=== PATIENT | male | born 1975 | race African-American/Black ===

== ENCOUNTER 2018-02-14 08:29 | Inpatient (IN) | payer BC ==
--- NOTE | 2018-02-14 10:02 | PROC ---
Endoscopy Procedure Endoscopy procedure completed. Please see scanned procedure report. 1) Circumferential, nearly obstructing, bleeding lesion @ 50 cm, biopsies and tattooed at both ends (~ 3-4 cm). Will admit for work up and treatment. Sx and Onc consults placed. 2) 1 cm pedunculated polyp was lifted with NS and hot snared off ICV, retried and sent to pathology
--- NOTE | 2018-02-14 10:02 | CONSULT ---
Consult Consult Specialty:: General surgery Referred by:: Josefina Reason for Consultation:: Apple core colon lesion onendoscopy - History Source History Provided By: Patient, Medical Record Limitations to Obtaining History: No Limitations - Past Medical History Additional Medical History: Denies - Alcohol/Substance Use Hx Alcohol Use: No History of Substance Use: reports: None - Smoking History Smoking history: Former smoker Have you smoked in the past 12 months: No Aproximately how many cigarettes per day: 0 If you are a former smoker, when did you quit?: 2000 - Social History Usual Living Arrangement: Alone ADL: Independent 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 History of Recent Travel: No Home Medications - Allergies Allergies/Adverse Reactions: Allergies Allergy/AdvReac Type Severity Reaction Status Date / Time No Known Allergies Allergy Verified 01/24/18 23:17 - Home Medications Home Medications: Ambulatory Orders NK [No Known Home Medication] 02/13/18 Family Disease History - Family Disease History Family Disease History: Other: Father (Alive: healthy), Mother (: 70's: PNA / Pancreatitis / Cardiac arrest), Son (1, healthy), Daughter (3, healthy) Physical Exam Vital Signs: Vital Signs Temperature 98.4 F 02/14/18 08:52 Pulse Rate 82 02/14/18 08:52 Respiratory Rate 18 02/14/18 08:52 Blood Pressure 154/89 02/14/18 08:52 O2 Sat by Pulse Oximetry (%) 99 02/14/18 08:52
--- NOTE | 2018-02-14 14:03 | HP ---
CHIEF COMPLAINT: Apple core colon lesion PCP: Giorgi Hoover HISTORY OF PRESENT ILLNESS: Patient is a 42 year old male with a PMHx of HTN (diet control), recently admitted for intra-abdominal abscess 01/19-01/23 and discharged with 10 days of abx who presented today for outpatient colonoscopy procedure with Dr. Rocha for follow up after being diagnosed with intraabdominal abscess with diverticulitis. During the procedure, patient was found to have an apple core mass in the left colon at the distal descending colon and proximal sigmoid colon , nearly obstructive, concerning for colon cancer. Patient reports since completing his antibiotics after discharge, he's had complete resolutions of symptoms. Patient also states that he is scheduled for a laparoscopic Colectomy with [facility] on 04/17/18. Otherwise, patient denies any diarrhea, change in stool caliber and states he has a bowel movement twice a day and is regular. Prior to today patient never had EGD/Colonoscopy Denies any weight loss, rectal bleeding, melena, rash, pruritis, jaundice, autoimmune disease, hepatitis. Denies any family history of colon, rectal, or GI malignancies. Denies any fever, chills, nausea,vomiting, abdominal pain, chest pain, palpitations, shortness of breath, headaches, dysuria, hematria, dizziness, lightheadedness. Recent Travel: Denies PAST MEDICAL HISTORY: HTN (diet controlled) PAST SURGICAL HISTORY: Denies Social History: Lives with his sister. 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 Single with 4 kids Smoking: Denies Alcohol: Was drinking 1-2 vodka 2-3 times a day for several weeks prior to his last admission but has not had a drink since his discharge on 01/23/18 Drugs: Denies Family History: Mother - at age 70's (4 months ago) after cardiac arrest from PNA Father- Alive and healthy 4 Children- Alive and healthy Siblings- Alive and healthy with no history of colon cancer Allergies: No Known Allergies Allergy (Verified 01/24/18 23:17) HOME MEDICATIONS: Home Medications Medication Instructions Recorded NK [No Known Home Medication] 02/13/18 REVIEW OF SYSTEMS CONSTITUTIONAL: Absent: fever, chills, diaphoresis, generalized weakness, malaise, loss of appetite, weight change HEENT: Absent: rhinorrhea, nasal congestion, throat pain, throat swelling, difficulty swallowing, mouth swelling, ear pain, eye pain, visual changes CARDIOVASCULAR: Absent: chest pain, syncope, palpitations, irregular heart rate, lightheadedness , peripheral edema RESPIRATORY: Absent: cough, shortness of breath, dyspnea with exertion, orthopnea, wheezing, stridor, hemoptysis GASTROINTESTINAL: Absent: abdominal pain, abdominal distension, nausea, vomiting, diarrhea, constipation, melena, hematochezia GENITOURINARY: Absent: dysuria, frequency, urgency, hesitancy, hematuria, flank pain, genital pain MUSCULOSKELETAL: Absent: myalgia, arthralgia, joint swelling, back pain, neck pain SKIN: Absent: rash, itching, pallor HEMATOLOGIC/IMMUNOLOGIC: Absent: easy bleeding, easy bruising, lymphadenopathy, frequent infections ENDOCRINE: Absent: unexplained weight gain, unexplained weight loss, heat intolerance, cold intolerance NEUROLOGIC: Absent: headache, focal weakness or paresthesias, dizziness, unsteady gait, seizure, mental status changes, bladder or bowel incontinence PSYCHIATRIC: Absent: anxiety, depression, suicidal or homicidal ideation, hallucinations. PHYSICAL EXAMINATION Vital Signs - 24 hr 02/14/18 02/14/18 02/14/18 08:52 09:48 10:05 Temperature 98.4 F 98.1 F Pulse Rate 82 69 68 Respiratory 18 18 18 Rate Blood Pressure 154/89 131/84 131/84 O2 Sat by Pulse 99 100 100 Oximetry (%) 02/14/18 10:21 Temperature Pulse Rate 68 Respiratory 18 Rate Blood Pressure 134/99 O2 Sat by Pulse 97 Oximetry (%) GENERAL: Awake, alert, and fully oriented, in no acute distress. HEAD: Normal with no signs of trauma. EYES: Pupils equal, round and reactive to light, extraocular movements intact, sclera anicteric, conjunctiva clear. No lid lag. ENT: Oropharynx clear without exudates. Moist mucous membranes. NECK: Supple, (-) JVD and lymphadenopathy LUNGS: CTA bilaterally No wheezes, and no crackles. No accessory muscle use. HEART: RRR, normal S1 and S2 without murmur, rub or gallop. ABDOMEN: Soft, nontender, not distended, normoactive bowel sounds, (+) Umbilical hernia MUSCULOSKELETAL: No CVA tenderness. UPPER EXTREMITIES: No peripheral edema. LOWER EXTREMITIES: No peripheral edema. NEUROLOGICAL: Cranial nerves II-XII intact. Normal speech. PSYCHIATRIC: Cooperative. Good eye contact. Appropriate mood and affect. SKIN: Warm, dry, normal turgor, no rashes or lesions noted, normal capillary refill. ASSESSMENT AND PLAN: Patient is a 42 year old male who presented for outpatient colonoscopy and was found to have a mass in the descending colon. Patient was admitted for further monitoring and management. Nearly Obstructive Colon Mass -Likely malignancy- suspicious for adenocarcinoma in Distal Descending Colon and Proximal Sigmoid Colon -Surgery consult placed due to patient having a nearly obstructive mass during colonoscopy. -Biopsies pending -CT Abdomen/Pelvic with contrast ordered for any metastatic disease -CEA ordered -CBC, CMP, Coags, type and screen ordered -Clear diet ordered, as per GI -NPO after midnight for possible Colectomy in the morning -Heme oncology consult once biopsy is back HTN- Uncontrolled -States he is on diet control but still has persistent elevations -Will likely start a anti-htn medication -Continue to monitor BP F/E/N -On no fluids -Cleat diet for now Prophylaxis -Heparin 5000 units sq TID for DVT -No GI required Disposition -Full code -Surgery consult pending Case Discussed with Attending, Dr. Antunez. Gala Jo [id number] Visit type - Emergency Visit Emergency Visit: Yes ED Registration Date: 02/14/18 Care time: The patient presented to the Emergency Department on the above date and was hospitalized for further evaluation of their emergent condition. - New Patient This patient is new to me today: Yes Date on this admission: 02/14/18 - Critical Care Critical Care patient: No Hospitalist Screening - Colonoscopy Questionnaire Colonoscopy Questionnaire: Colonoscopy Questionnaire - Patient: 50 - 75 years old and never had a screening colonoscopy: No History of colon or rectal polyps, or CA: No History of IBD, Crohn's disease or UC: No History of abdominal radiation therapy as a child: No - Relative: 1 with colon or rectal CA, or polyps at age 60 or younger: No Colon or rectal CA diagnosed at age 45 or younger: No Multiple relatives with colon or rectal CA: No - Outcome: Screening Result: Negative Screen
--- NOTE | 2018-02-14 17:29 | PN ---
Teaching Attending Note Name of Resident: Gala Jo ATTENDING PHYSICIAN STATEMENT I saw and evaluated the patient. I reviewed the resident's note and discussed the case with the resident. I agree with the resident's findings and plan as documented. SUBJECTIVE: This is a 42 year old man with a history of HTN and recent diverticular abscess of the splenic flexure who came in today for colonoscopy and was found to have a circumferential, nearly obstructing, bleeding lesion at 50cm that was biopsied and tattooed. He was also found to have a 1 cm pedunculated polyp at the ileocecal valve which was resected. He denies abdominal pain, change in bowel habits, change in size/shape of stool, melena, rectal bleeding. OBJECTIVE: Vital Signs Period Temp Pulse Resp BP Sys/Santizo Pulse Ox Last 24 Hr 98.1 F-98.4 F 68-82 18-18 131-154/84-99 97-100 HEART: S1S2, RRR LUNGS: Clear ABDOMEN: Soft, non-tender, non-distended, normal BS EXTREMITIES: No edema Home Medications Medication Instructions Recorded NK [No Known Home Medication] 02/13/18 ASSESSMENT AND PLAN: This is a 42 year old man with a history of HTN and recent diverticular abscess of the splenic flexure who had a colonoscopy today and was found to have a circumferential, nearly obstructing, lesion of the left colon. 1. Left colon mass, nearly obstructing, likely malignancy - Admit - Clear liquid diet - Follow up pathology - CT chest/abdomen/pelvis shows almost complete resolution of pericolonic inflammatory changes at splenic flexure, concentric wall thickening at splenic flexure, mildly enlarged pericolonic lymph nodes, 2.3 cm hypodense lesion of right hepatic lobe, 0.3 cm RUL lung nodule - MRI of liver ordered - Surgical consult for resection - Oncology consult 2. HTN - On no medications - Monitor BP and start anti-hypertensive if necessary
[2018-02-14 20:48] LABS: BASO % 0.7 % (0-2.0); EOS % 4.9 % (0-4.5); HEMATOCRIT 45.6 % (35.4-49); HEMOGLOBIN 15.4 GM/dL (11.7-16.9); LYMPH % 31.7 % (8-40); MCH 30.5 pg (25.7-33.7); MCHC 33.7 g/dl (32.0-35.9); MEAN CELL VOLUME 90.4 fl (80-96); MEAN PLT VOLUME 9.1 fl (7.5-11.1); MONO % 8.8 % (3.8-10.2); NEUT % 53.9 % (42.8-82.8); PLATELET COUNT 249 K/MM3 (134-434); RBC 5.04 M/mm3 (4.00-5.60); RDW 14.8 % (11.9-15.9); WHITE BLOOD COUNT 6.5 K/mm3 (4.0-10.0)
[2018-02-14 21:01] LABS: INR 1.09 (0.83-1.09); PROTHROMBIN TIME (PATIENT) 12.3 SEC (9.7-13.0)
[2018-02-14 21:03] LABS: ACTIVATED PTT 32.1 SECONDS (25.2-36.5)
--- NOTE | 2018-02-14 21:25 | CONSULT ---
Consult - text type - Consultation Consultation Note: Patient is a 42 year old male with a PMHx of HTN , recently admitted for intra- abdominal abscess 01/19-01/23 and discharged with 10 days of abx who presented today for outpatient colonoscopy procedure with Dr. Rocha for follow up after being diagnosed with intraabdominal abscess with diverticulitis. During the procedure, patient was found to have an apple core mass in the left colon at the distal descending colon and proximal sigmoid colon, nearly obstructive. Patient reports since completing his antibiotics after discharge, he's had complete resolutions of symptoms. Denies any fever, chills, nausea,vomiting, abdominal pain, chest pain, palpitations, shortness of breath, headaches, dysuria, hematria, dizziness, lightheadedness. Rports an episode of rectal bleeding since he biopsy this morning PAST MEDICAL HISTORY: HTN (diet controlled), obesity PAST SURGICAL HISTORY: Denies Social History: Lives with his sister. 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 Smoking: Denies Alcohol: Was drinking 1-2 vodka 2-3 times a day for several weeks prior to his last admission but has not had a drink since his discharge on 01/23/18 Drugs: Denies Family History: Mother - at age 70's (4 months ago) after cardiac arrest from PNA Father- Alive and healthy 4 Children- Alive and healthy Siblings- Alive and healthy with no history of colon cancer Maternal aunt had cancer--- e is trying to find out more details about his family history Allergies: No Known Allergies Allergy (Verified 01/24/18 23:17) HOME MEDICATIONS: Home Medications Medication Instructions Recorded NK [No Known Home Medication] 02/13/18 . PHYSICAL EXAMINATION Vital Signs - 24 hr 02/14/18 02/14/18 02/14/18 08:52 09:48 10:05 Temperature 98.4 F 98.1 F Pulse Rate 82 69 68 Respiratory 18 18 18 Rate Blood Pressure 154/89 131/84 131/84 O2 Sat by Pulse 99 100 100 Oximetry (%) 02/14/18 10:21 Temperature Pulse Rate 68 Respiratory 18 Rate Blood Pressure 134/99 O2 Sat by Pulse 97 Oximetry (%) Cor: RSR, No murmurs, No gallops Lungs: Clear to P&A Abd: Soft, Normal bowel sounds, No organomegaly Ext:No significant edema Labs/Meds eviewed ASSESSMENT AND PLAN: Patient is a 42 year old male who presented for outpatient colonoscopy and was found to have a mass in the descending colon. Patient was admitted for further monitoring and management. Nearly Obstructive Colon Mass -Likely malignancy- suspicious for adenocarcinoma in Distal Descending Colon and Proximal Sigmoid Colon -Surgery consult placed due to patient having a nearly obstructive mass during colonoscopy. Recent intraabdominal abscess. CT c/a/p---concentric wall thickening of colonn at the splenic flexure. Resolution of inflammatory changes t splenic flecure. small mildly enlarged pericolonicmesenteric nodes. 2.3 cm rt. hepatic lobe lesion-- MRI pending RUL nonspecific 0.3cm nodule Await MRI/biopsy/CEA
[2018-02-14 21:38] LABS: ALK PHOS 69 U/L (45-117); ANION GAP 8 MMOL/L (8-16); BILIRUBIN,TOTAL 0.8 mg/dL (0.2-1); BLOOD UREA NITROGEN 9 mg/dL (7-18); CALCIUM 9.7 mg/dL (8.5-10.1); CHLORIDE 102 mmol/L (98-107); CO2 31 mmol/L (21-32); CREATININE 0.9 mg/dL (0.55-1.3); GLUCOSE,RANDOM 92 mg/dL (74-106); MAGNESIUM 2.2 mg/dL (1.8-2.4); POTASSIUM 3.9 mmol/L (3.5-5.1); SGOT/AST 52 U/L (15-37); SGPT/ALT 130 U/L (13-61); SODIUM 141 mmol/L (136-145)
[2018-02-14] MEDS: HEPARIN NA (PORCINE) 5,000 UNITS/ML 1ML VIAL SQ SCH (21:49)
[2018-02-14 23:30] LABS: BASO % 0.7 % (0-2.0); EOS % 5.4 % (0-4.5); HEMATOCRIT 46.8 % (35.4-49); LYMPH % 33.9 % (8-40); MCH 30.5 pg (25.7-33.7); MCHC 34.1 g/dl (32.0-35.9); MEAN CELL VOLUME 89.5 fl (80-96); MEAN PLT VOLUME 8.5 fl (7.5-11.1); MONO % 10.5 % (3.8-10.2); NEUT % 49.5 % (42.8-82.8); PLATELET COUNT 243 K/MM3 (134-434); RBC 5.23 M/mm3 (4.00-5.60); WHITE BLOOD COUNT 7.4 K/mm3 (4.0-10.0)
--- NOTE | 2018-02-15 04:30 | CONSULT ---
Consult Consult Specialty:: General Surgery Reason for Consultation:: colon mass - History of Present Illness Chief Complaint: Colon mass bleeding per rectum History of Present Illness: 42yo male PMH obesity, diverticulitis (last episode 01/19) and presumed malignancy left colon presented for an elective follow up colonoscopy after and episode of diverticulitis. He was noted to to have an apple core lesion at 50cm from anal verge. CTscan of the Abdomen revealed concentric wall thickening at splenic flexture with improved pericolonic inflamation and resolution of his diverticulitis from previous CTscan. There is a liver lesion and some adjacent pericolonic adenopathy revealed as well. These findings were discussed with Dr. Holm, his previous surgical supervisor and he was originally scheduled for colectomy in march 2018. He has been noted to have some bleeding per rectum folloing yesterdays colonoscopy. 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 Travel: No Home Medications - Allergies Allergies/Adverse Reactions: Allergies Allergy/AdvReac Type Severity Reaction Status Date / Time No Known Allergies Allergy Verified 01/24/18 23:17 - Home Medications Home Medications: Ambulatory Orders NK [No Known Home Medication] 02/13/18 Family Disease History - Family Disease History Family Disease History: Other: Father (Alive: healthy), Mother (: 70's: PNA / Pancreatitis / Cardiac arrest), Son (1, healthy), Daughter (3, healthy) Review of Systems - Review of Systems Constitutional: denies: Chills, Fever Eyes: denies: Blind Spots, Blurred Vision, Recent Change in Vision HENT: denies: Difficult Swallowing, Throat Pain Neck: denies: Decreased ROM, Tenderness Cardiovascular: denies: Chest Pain, Palpitations Respiratory: denies: Cough, SOB Gastrointestinal: reports: Abdominal Pain, Rectal Bleeding. denies: Constipation, Diarrhea Genitourinary: denies: Discharge, Dysuria Breasts: reports: No Symptoms Reported. denies: Pain Musculoskeletal: denies: Back Pain, Muscle Pain Integumentary: denies: Blister, Bruising, Pallor Neurological: denies: Seizure, Syncope Endocrine: denies: Unexplained Weight Gain, Unexplained Weight Loss Hematology/Lymphatic: denies: Easily Bruised, Excessive Bleeding Psychiatric: denies: Anxiety, Depression Physical Exam Vital Signs: Vital Signs Temperature 98.2 F 02/14/18 20:46 Pulse Rate 66 02/14/18 20:46 Respiratory Rate 18 02/14/18 20:46 Blood Pressure 155/102 02/14/18 20:46 O2 Sat by Pulse Oximetry (%) 99 02/14/18 23:54 Constitutional: Yes: Well Nourished, No Distress, Calm Eyes: Yes: Conjunctiva Clear, EOM Intact HENT: Yes: Atraumatic, Normocephalic Neck: Yes: Supple, Trachea Midline Cardiovascular: Yes: Regular Rate and Rhythm, S1, S2 Respiratory: Yes: Regular, CTA Bilaterally Gastrointestinal: Yes: Normal Bowel Sounds, Soft, Abdomen, Obese. No: Palpable Mass, Tenderness, Tenderness, Epigastrium, Tenderness, Rebound ...Rectal Exam: Yes: Other (small amount of blood in the exam finger). No: Erythema, Guaiac Negative, Mass Renal/: No: CVA Tenderness - Left, CVA Tenderness - Right Extremities: No: Cool, Cyanosis Edema: No Peripheral Pulses WNL: Yes Neurological: Yes: Alert, Oriented Psychiatric: Yes: Alert, Oriented Labs: CBC, BMP 02/14/18 22:55 02/14/18 20:00 Problem List - Problems (1) Colonic mass Assessment/Plan: 42 yo male with HTN and resolved diverticulitis presented after colonoscopy with near obstructing apple core mass at 50cm from anal verge. he noted that some rectal bleeding started since the colonoscopy. The biopsy is pending and metastatic workup is not suggestive of advanced stage. NPO and IVF hydration Supplemental bowel prep - fleets and antibiotics Discuss with oncology plan OR for left hemicolectomy, possible ostomy, possible liver biopsy Discussed with patient risks, benefits and alternatives of aforementioned procedure, including but not limited to bleeding, infection, injury to adjacent structures, leak or injury, intraabdominal abscess, incisional hernia, need for further procedures, ; alternatives include antibiotics, delayed or no surgery - risks of this include failure of nonoperative therapy, perforation, sepsis, recurrence, . Patient desires to proceed with operation - will take to OR for above. Informed consent signed for same. Thank you for the opportunity to participate in the care of this patient. Code(s): K63.9 - DISEASE OF INTESTINE, UNSPECIFIED (2) Diverticulitis of both large and small intestine with abscess Code(s): K57.40 - DVTRCLI OF BOTH SMALL AND LG INT W PERF AND ABSCS W/O BLEED Qualifiers: Diverticulitis bleeding: without bleeding Qualified Code(s): K57.40 - Diverticulitis of both small and large intestine with perforation and abscess without bleeding (3) HTN (hypertension) Code(s): I10 - ESSENTIAL (PRIMARY) HYPERTENSION Qualifiers: Hypertension type: essential hypertension Qualified Code(s): I10 - Essential (primary) hypertension (4) Rectal bleeding Code(s): K62.5 - HEMORRHAGE OF ANUS AND RECTUM
[2018-02-15] MEDS: NEOMYCIN SO4 500 MG TABLET PO SCH ×3 (05:46→10:29)
[2018-02-15] MEDS ORDERED: SODIUM PHOSPHATE/NA BIPHOS 133 ML ENEMA PR ONE (06:00)
[2018-02-15] MEDS: HEPARIN NA (PORCINE) 5,000 UNITS/ML 1ML VIAL SQ SCH ×2 (06:41→22:43)
[2018-02-15 06:47] LABS: BASO % 0.6 % (0-2.0); EOS % 6.2 % (0-4.5); HEMATOCRIT 42.6 % (35.4-49); HEMOGLOBIN 14.5 GM/dL (11.7-16.9); INR 1.16 (0.83-1.09); LYMPH % 31.3 % (8-40); MCH 30.3 pg (25.7-33.7); MEAN CELL VOLUME 89.1 fl (80-96); MEAN PLT VOLUME 8.5 fl (7.5-11.1); MONO % 11.3 % (3.8-10.2); NEUT % 50.6 % (42.8-82.8); PLATELET COUNT 207 K/MM3 (134-434); PROTHROMBIN TIME (PATIENT) 13.1 SEC (9.7-13.0); RBC 4.78 M/mm3 (4.00-5.60); RDW 14.5 % (11.9-15.9); WHITE BLOOD COUNT 6.5 K/mm3 (4.0-10.0)
[2018-02-15 07:12] LABS: ALBUMIN 3.5 g/dl (3.4-5.0); ALK PHOS 61 U/L (45-117); ANION GAP 9 MMOL/L (8-16); BILIRUBIN,DIRECT 0.2 mg/dL (0.0-0.2); BILIRUBIN,TOTAL 1.1 mg/dL (0.2-1); BLOOD UREA NITROGEN 9 mg/dL (7-18); CALCIUM 9.3 mg/dL (8.5-10.1); CHLORIDE 105 mmol/L (98-107); CO2 29 mmol/L (21-32); CREATININE 0.9 mg/dL (0.55-1.3); GLUCOSE,RANDOM 86 mg/dL (74-106); POTASSIUM 3.8 mmol/L (3.5-5.1); SGOT/AST 52 U/L (15-37); SGPT/ALT 116 U/L (13-61); SODIUM 143 mmol/L (136-145); TOT PROT 7.1 g/dl (6.4-8.2)
[2018-02-15] MEDS ORDERED: ENOXAPARIN NA (PORCINE) 40 MG/0.4 ML DISP.SYRIN SQ SCH (10:00)
[2018-02-15] MEDS ORDERED: PT OWN MED DRAWER 7, Y5N ONE (10:25)
[2018-02-15] MEDS ORDERED: ROPIVACAINE HCL 0.5% 30ML VIAL ONE (12:34)
[2018-02-15] MEDS ORDERED: MIDAZOLAM HCL 2 MG/2 ML SINGLE DOSE VIAL ONE ×2 (12:36)
[2018-02-15] MEDS ORDERED: PROPOFOL 20 ML ONE ×2 (12:43)
[2018-02-15] MEDS ORDERED: ROCURONIUM BROMIDE 50 MG/5 ML VIAL ONE ×2 (12:43→13:54)
[2018-02-15] MEDS ORDERED: fentaNYL CITRATE 250 MCG/5 ML VIAL ONE (12:43)
[2018-02-15] MEDS ORDERED: CEFOTETAN DISODIUM 2 GM in DEXTROSE 5%-WATER 100 ML IVPB ONE (12:45)
[2018-02-15] MEDS ORDERED: cefoTEtan DISODIUM 1 GM VIAL (RESTRICTED TO ID) IVPB ONE (13:08)
--- NOTE | 2018-02-15 13:08 | PN ---
Progress Note (short form) - Note Progress Note: Pathology findings discussed with dr Camarena. Adenocarcinoma.
--- NOTE | 2018-02-15 14:31 | PN ---
Physical Exam: SUBJECTIVE: Patient seen and examined at bedside this morning. He admits to two episodes of bright red blood per rectum with bowel movement after colonoscopy yesterday. Has not had any bowel movements overnight since that time. Today denies fevers, chills, shortness of breath, chest pain, palpitations, abdominal pain, nausea, vomiting, diarrhea. OBJECTIVE: Vital Signs Period Temp Pulse Resp BP Sys/Santizo Pulse Ox Last 24 Hr 98.2 F-98.3 F 63-70 18-18 132-155/87-102 99 GENERAL: The patient is awake, alert, and fully oriented, in no acute distress. HEAD: Normocephalic, atraumatic EYES: PERRLA, extraocular movements intact, sclera anicteric, no conjunctival injection. ENT: Oropharynx clear without exudates or lesions, moist mucous membranes. NECK: Supple without lymphadenopathy. LUNGS: Breath sounds equal, clear to auscultation bilaterally, no wheezes, no crackles. HEART: Regular rate and rhythm, S1, S2 without murmur, rub or gallop. ABDOMEN: Soft, nontender, nondistended, normoactive bowel sounds, no guarding, no rebound. Umbilical hernia, reducible, nontender. EXTREMITIES: 2+ pulses radial, and dorsalis pedis b/l. Warm. No edema b/l lower extremities. NEUROLOGICAL: Cranial nerves II through XII grossly intact. Normal speech. No gross focal deficits. PSYCH: Appropriate mood and affect upon my encounter today. SKIN: Warm, dry, normal turgor. Laboratory Results - last 24 hr 02/14/18 02/14/18 02/14/18 20:00 20:00 20:00 WBC 6.5 RBC 5.04 Hgb 15.4 Hct 45.6 MCV 90.4 MCH 30.5 MCHC 33.7 RDW 14.8 Plt Count 249 D MPV 9.1 D Absolute Neuts (auto) 3.5 Neutrophils % 53.9 Lymphocytes % 31.7 Monocytes % 8.8 Eosinophils % 4.9 H Basophils % 0.7 Nucleated RBC % 0 PT with INR 12.30 INR 1.09 PTT (Actin FS) 32.1 Sodium 141 Potassium 3.9 Chloride 102 Carbon Dioxide 31 Anion Gap 8 BUN 9 Creatinine 0.9 Creat Clearance w eGFR > 60 Random Glucose 92 Calcium 9.7 Phosphorus 4.0 Magnesium 2.2 Total Bilirubin 0.8 Direct Bilirubin AST 52 H ALT 130 H Alkaline Phosphatase 69 Total Protein 8.0 Albumin 4.0 Blood Type Antibody Screen Crossmatch IS Only 02/14/18 02/14/18 02/15/18 20:00 22:55 06:00 WBC 7.4 6.5 RBC 5.23 4.78 Hgb 16.0 14.5 Hct 46.8 42.6 MCV 89.5 89.1 MCH 30.5 30.3 MCHC 34.1 34.0 RDW 15.0 14.5 Plt Count 243 207 MPV 8.5 8.5 Absolute Neuts (auto) 3.7 3.3 Neutrophils % 49.5 50.6 Lymphocytes % 33.9 31.3 Monocytes % 10.5 H 11.3 H Eosinophils % 5.4 H 6.2 H Basophils % 0.7 0.6 Nucleated RBC % 0 0 PT with INR INR PTT (Actin FS) Sodium Potassium Chloride Carbon Dioxide Anion Gap BUN Creatinine Creat Clearance w eGFR Random Glucose Calcium Phosphorus Magnesium Total Bilirubin Direct Bilirubin AST ALT Alkaline Phosphatase Total Protein Albumin Blood Type O POSITIVE Antibody Screen Negative Crossmatch IS Only See Detail 02/15/18 02/15/18 06:00 06:00 WBC RBC Hgb Hct MCV MCH MCHC RDW Plt Count MPV Absolute Neuts (auto) Neutrophils % Lymphocytes % Monocytes % Eosinophils % Basophils % Nucleated RBC % PT with INR 13.10 H INR 1.16 H PTT (Actin FS) Sodium 143 Potassium 3.8 Chloride 105 Carbon Dioxide 29 Anion Gap 9 BUN 9 Creatinine 0.9 Creat Clearance w eGFR > 60 Random Glucose 86 Calcium 9.3 Phosphorus Magnesium Total Bilirubin 1.1 H Direct Bilirubin 0.2 AST 52 H ALT 116 H Alkaline Phosphatase 61 Total Protein 7.1 Albumin 3.5 Blood Type Antibody Screen Crossmatch IS Only Active Medications Generic Name Dose Route Start Last Admin Trade Name Freq PRN Reason Stop Dose Admin Heparin Sodium (Porcine) 5,000 unit 02/14/18 22:00 02/15/18 06:41 Heparin - SQ Not Given TID [facility] CT chest, abdomen, pelvis: Nonsepecific 2.3 cm right hepatic lobe hypodense lesion. Hemangioma vs. metastatic disease. Nonspecific 0.3cm right upper lobe pulmonary nodule noted. MRI: 1.2 cm posterior hepatic lobe hyperintense lesion, 2-3mm right hepatic dome hyperintense lesion. Proximal descending colon wall thickening with few adjacent lymph nodes. Colonoscopy: Circumferential mass in left colon, distal descending colon, proximal sigmoid colon. Multiple biopsies performed. 10mm pedunculated polyp at ileocecal valve. ASSESSMENT/PLAN: Patient is a 42 year old male recently admitted for intraabdominal abscess presents after colonoscopy finding of nearly obstructive apple-core lesion in distal colon. Adenocarcinoma of distal colon -Surgical consult (Dr. Conway) appreciated: patient for left hemicolectomy with possible ostomy, and liver biopsy today. -GI consult (Dr. Rocha) appreciated: Pathology finsings significant for adenocarcinoma -Hematology/ oncology consult (Dr. Santo) appreciated: Will follow CEA, and biopsy results. -F/U surgical pathology report -F/U liver biopsy Hypertension -Elevation may be due to anxiety over procedure. -Will follow BP FEN -No IV fluids -Follow CMP -NPO Prophylaxis -Heparin 5000units subq TID (hold for surgery today). Disposition -Continue care in medical surgical floor. For left hemicolectomy today with Dr. Conway. Visit type - Emergency Visit Emergency Visit: Yes ED Registration Date: 02/14/18 Care time: The patient presented to the Emergency Department on the above date and was hospitalized for further evaluation of their emergent condition. - New Patient This patient is new to me today: Yes Date on this admission: 02/15/18 - Critical Care Critical Care patient: No - Discharge Referral Referred to [facility] Med P.C.: No
[2018-02-15] MEDS ORDERED: DEXAMETHASONE SOD PHOSPHATE 4 MG/1 ML VIAL ONE ×2 (14:41→17:38)
--- NOTE | 2018-02-15 16:36 | PATH ---
Surgical Pathology Report Patient Name: KAUSHIK GARLAND Med. Rec. #: [id number] /Age/Gender: 1975 (Age: 42) / M Account: [id number] Location: [facility] MED/SURG Taken: 02/14/2018 Received: 02/14/2018 Reported: 02/15/2018 Physicians: Ceferino Rocha M.D. Specimen(s) Received A: BX MASS AT 50 CM B: BX CECUM POLYP Clinical History Colon screening Postoperative diagnosis: Colon polyp, colon mass at 50 cm Final Diagnosis A. COLON MASS, 50 CM, BIOPSY: AT LEAST INTRAMUCOSAL ADENOCARCINOMA, IN A BACKGROUND OF TUBULOVILLOUS ADENOMA. Comment: The tumor shows at least intramucosal invasion. Due to the fragmented nature of the specimen, a deeper invasion cannot be excluded. Correlate with colonoscopic finding is recommended. B. CECAL POLYP, POLYPECTOMY: TUBULAR ADENOMA. Intradepartmental case reviewed with consensus on diagnosis. This case was discussed with Dr. Rocha on February 15, 2018. Electronically Signed Amelia Camarena M.D. Gross Description A. Received in formalin, labeled "mass 50 cm" are 3 eugene, irregular portions of soft tissue ranging from 0.1-0.4 cm. in greatest dimension. The specimens are submitted in toto in one cassette. B. Received in formalin labeled "polyp of cecum," is a 0.8 x 0.7 x 0.2 cm aggregate of eugene soft tissue fragments. The formalin is filtered and the specimen is entirely submitted in one cassette. DL/02/14/2018 saudi/02/14/2018
[2018-02-15] MEDS ORDERED: ONDANSETRON 4 MG/2 ML VIAL IVPUSH PRN ×3 (17:02→19:49)
[2018-02-15] MEDS ORDERED: HYDROmorphone *PCA* 10MG/50ML DISP.SYRIN PCA SCH (17:15)
[2018-02-15] MEDS ORDERED: ACETAMINOPHEN 1000 MG/100 ML VIAL (NON FORMULARY) IVPB ONE (17:15)
[2018-02-15] MEDS ORDERED: LACTATED RINGERS SOLUTION 1,000 ML IV SCH (17:15)
[2018-02-15] MEDS ORDERED: GLYCOPYRROLATE 0.2 MG/1 ML VIAL ONE (17:28)
[2018-02-15] MEDS ORDERED: NEOSTIGMINE METHYLSULFATE 0.5 MG/ML - 10 ML MDV ONE (17:28)
--- NOTE | 2018-02-15 18:32 | OP ---
Operative Note - Note: Operative Date: 02/15/18 Pre-Operative Diagnosis: left colon mass and umbilical hernia Operation: Left hemicolectomy and umbilical hernia repair Findings: large palpable concentric mass splenic with inked serosal margins, surgical margins appeared normal, no sign of metastatic disease. primary [id number] stabled anastomosis. umbilical hernia incarcerated with omental fat, primarily repaired. all counts correct. Post-Operative Diagnosis: Same as Pre-op Surgeon: Jerrod Conway Kennel Technician: Mat Zazueta Anesthesiologist/PARQUET FLOOR LAYER: Raymundo Hudson Anesthesia: General Specimens Removed: hernia sac, left coloon blue proline gordon distal margin Estimated Blood Loss (mls): 150 Drains & Tubes with Location: newberry Drains, Volume Out (mls): 700 (urine in newberry ) Fluid Volume Replaced (mls): 4,500 (crystalloid ) Operative Report Dictated: Yes
[2018-02-15] MEDS ORDERED: ACETAMINOPHEN INJECTION 100 ML IVPB ONE (18:39)
[2018-02-15] MEDS ORDERED: LACTATED RINGERS SOLUTION 1,000 ML/1,000 ML INFUS.BAG IV SCH ×2 (18:45→19:49)
[2018-02-15] MEDS ORDERED: PANTOPRAZOLE SODIUM 40 MG VIAL IVPUSH SCH (18:45)
[2018-02-15] MEDS ORDERED: HYDROmorphone *PCA* 10MG/50ML DISP.SYRIN PCA ONE (19:15)
[2018-02-15] MEDS: HYDROmorphone *PCA* 10MG/50ML DISP.SYRIN PCA SCH (19:20)
--- NOTE | 2018-02-15 19:42 | PN ---
Teaching Attending Note Name of Resident: Asa Burton ATTENDING PHYSICIAN STATEMENT I saw and evaluated the patient. I reviewed the resident's note and discussed the case with the resident. I agree with the resident's findings and plan as documented. SUBJECTIVE: seen in PACU. has no abd pain, but using COMPOSITION FLOOR SETTER. no fever or chills. did not pass gas. OBJECTIVE: NAD, awake , and cooperaitve CV; RRR Lungs: CTAB abd: mid line surgical dressing. hypoactive BS. obese . TTP in all quadrants ext : no edema ASSESSMENT AND PLAN: 42 /o man with h/o HTN, recent admission for abd abscess who was sent form GI suite due to colon mass 1- Adenocarcinoma of the colon : not clear if liver lesions and lung nodules are Mets. MRI was not completed due to clustrophobia - s/p L sided hemicolectomy today - IVF - NPO - pain control - follow final path - will d/w Onc next strep 2- h/o HTN: follow . not on any meds heparin sq and Scds
[2018-02-15 19:50] LABS: BASO % 0.1 % (0-2.0); EOS % 0.1 % (0-4.5); HEMATOCRIT 46.8 % (35.4-49); HEMOGLOBIN 15.8 GM/dL (11.7-16.9); LYMPH % 5.7 % (8-40); MCH 30.6 pg (25.7-33.7); MCHC 33.8 g/dl (32.0-35.9); MEAN CELL VOLUME 90.5 fl (80-96); MEAN PLT VOLUME 9.2 fl (7.5-11.1); NEUT % 88.1 % (42.8-82.8); PLATELET COUNT 237 K/MM3 (134-434); RBC 5.18 M/mm3 (4.00-5.60); RDW 14.9 % (11.9-15.9); WHITE BLOOD COUNT 10.8 K/mm3 (4.0-10.0)
[2018-02-15 21:03] LABS: ALBUMIN 3.1 g/dl (3.4-5.0); ALK PHOS 55 U/L (45-117); ANION GAP 7 MMOL/L (8-16); BILIRUBIN,TOTAL 0.9 mg/dL (0.2-1); BLOOD UREA NITROGEN 13 mg/dL (7-18); CALCIUM 8.7 mg/dL (8.5-10.1); CHLORIDE 105 mmol/L (98-107); CO2 29 mmol/L (21-32); CREATININE 1.4 mg/dL (0.55-1.3); GLUCOSE,RANDOM 119 mg/dL (74-106); POTASSIUM 4.7 mmol/L (3.5-5.1); SGOT/AST 52 U/L (15-37); SGPT/ALT 113 U/L (13-61); SODIUM 141 mmol/L (136-145); TOT PROT 6.5 g/dl (6.4-8.2)
--- NOTE | 2018-02-15 21:11 | PN ---
Progress Note (short form) - Note Progress Note: Patient seen and examined Recovering post op. alert/oriented. no complaints Last Vital Signs Temp Pulse Resp BP Pulse Ox 97.8 F 82 18 132/83 98 02/15/18 21:01 02/15/18 23:01 02/15/18 23:01 02/15/18 23:01 02/15/18 21:00 Cor: RSR, No murmurs, No gallops Lungs: Clear to P&A Abd: Soft, Normal bowel sounds, No organomegaly Ext:No significant edema Skin: No rashes, Integument intact Abnormal Lab Results 02/14/18 02/15/18 02/15/18 20:00 06:00 06:00 WBC Absolute Neuts (auto) Neutrophils % Lymphocytes % Monocytes % 11.3 H Eosinophils % 6.2 H PT with INR 13.10 H INR 1.16 H Anion Gap Creatinine Random Glucose Total Bilirubin AST ALT Albumin Crossmatch IS Only See Detail 02/15/18 02/15/18 02/15/18 06:00 18:50 18:50 WBC 10.8 H Absolute Neuts (auto) 9.5 H Neutrophils % 88.1 H D Lymphocytes % 5.7 L D Monocytes % Eosinophils % PT with INR INR Anion Gap 7 L Creatinine 1.4 H Random Glucose 119 H Total Bilirubin 1.1 H AST 52 H 52 H ALT 116 H 113 H Albumin 3.1 L Crossmatch IS Only Active Medications Generic Name Dose Route Start Last Admin Trade Name Freq PRN Reason Stop Dose Admin Chlorhexidine Gluconate 1 applic 02/15/18 22:00 02/15/18 22:44 Hibiclens For Decolonization - TP 1 applic HS MELVI Administration Heparin Sodium (Porcine) 5,000 unit 02/15/18 22:00 02/15/18 22:43 Heparin - SQ 5,000 unit TID MELVI Administration Hydromorphone HCl 10 mg 02/15/18 19:49 02/15/18 19:20 Dilaudid Brooch Maker Novelty - STAVE MILL HAND 02/22/18 17:02 10 mg STAVE MILL HAND MELVI Administration Protocol Lactated Ringer's 1,000 ml in 1,000 mls @ 100 mls/hr 02/15/18 19:49 02/15/18 20:30 Lactated Ringers Solution IV 0 mls ASDIR MELVI Administration Mupirocin 1 applic 02/15/18 22:00 02/15/18 22:46 Bactroban Ointment (For Decolonization) - NS 02/20/18 21:59 1 applic BID MELVI Administration Ondansetron HCl 4 mg 02/15/18 19:49 Zofran Injection IVPUSH Q8H PRN NAUSEA Pantoprazole Sodium 40 mg 02/16/18 10:00 Protonix Iv IVPUSH DAILY MELVI A/P Patient is a 42 year old male who presented for outpatient colonoscopy and was found to have a mass in the descending colon. Patient was admitted for further monitoring and management. Nearly Obstructive Colon Mass CT c/a/p---concentric wall thickening of colonn at the splenic flexure. Resolution of inflammatory changes t splenic flecure. small mildly enlarged pericolonicmesenteric nodes. 2.3 cm rt. hepatic lobe lesion-- MRI pending RUL nonspecific 0.3cm nodule MRI shows--right hepatic lobe lesions --1.2cm and 2mm-- ? cysts in the liver. - -short term f/u with contrast MRI s/p left hemicolectomy and umblical hernia repair today will follow final path
--- NOTE | 2018-02-15 21:12 | CONSULT ---
Consultation: REQUESTING PROVIDER: Juliet CONSULT REQUEST: We have been asked to medically evaluate this patient for ICU monitoring post hemicolectomy. HISTORY OF PRESENT ILLNESS: Pt is a 42 yo M with PMH of obesity, HTN (diet controlled, no medications), and diverticulosis (last seen 01/19 for episode), who was recently admitted on 01/19- with intra-abdominal abscess. The pt was discharged after this admission with 10 days of abx. The pt presented 02/14 for an elective colonoscopy with Dr. Rocha. Endoscopy revealed an apple core lesion in the L colon, 50cm from anal verge, at the distal descending colon and proximal sigmoid colon, nearly obstructive, which was concerning for colon cancer. The CT abdomen revealed concentric wall thickening at splenic flexture, with improved pericolonic inflamation and resolution of his diverticulitis from the prior scan. Also found was a liver lesion and some adjacent pericolonic adenopathy. Per Dr. Rivas, these findings were discussed with Dr. Holm, his previous certified ophthalmic surgical assistant (originally scheduled for colectomy 04/17/18 with [facility]). Since the last admission, the pt denies any symptoms, including fevers/chills, weight changes, abdominal pain, hematemesis, nausea/vomiting, and rectal bleeding/melena. The pt does state he had multiple episodes of BRB per rectum following the colonoscopy procedure. The pt had no prior EGD or colonoscopy work-up in the past. Family History: Mother (HTN/HLD). Denies FH of colon, rectal, or GI malignancies. REVIEW OF SYSTEMS: as stated in HPI +BRB per rectum following colonoscopy -fevers/chills -headache -chest pain -SOB -abdominal pain PHYSICAL EXAMINATION Vital Signs - 24 hr 02/14/18 02/15/18 02/15/18 23:54 04:00 09:00 Temperature 98.3 F Pulse Rate 70 Respiratory 18 Rate Blood Pressure 132/87 O2 Sat by Pulse 99 99 Oximetry (%) 02/15/18 02/15/18 02/15/18 10:00 18:25 18:30 Temperature 98.2 F 98.7 F Pulse Rate 63 84 81 Respiratory 18 24 H 16 Rate Blood Pressure 136/99 122/63 125/71 O2 Sat by Pulse 100 Oximetry (%) 02/15/18 02/15/18 02/15/18 18:45 19:00 19:15 Temperature Pulse Rate 83 78 78 Respiratory 22 H 19 19 Rate Blood Pressure 117/66 112/71 114/75 O2 Sat by Pulse 95 98 98 Oximetry (%) 02/15/18 02/15/18 02/15/18 19:20 19:30 19:45 Temperature Pulse Rate 78 77 83 Respiratory 19 23 H 10 Rate Blood Pressure 225/75 112/72 117/79 O2 Sat by Pulse 96 98 Oximetry (%) 02/15/18 02/15/18 02/15/18 20:00 20:15 20:30 Temperature Pulse Rate 85 83 70 Respiratory 16 12 14 Rate Blood Pressure 121/77 118/80 125/82 O2 Sat by Pulse 97 99 Oximetry (%) GENERAL: Awake, alert, and fully oriented, in no acute distress. Pt slightly lethargic, but able to answer questions appropriately. HEAD: Normal with no signs of trauma. EYES: Extraocular movements intact, sclera anicteric, conjunctiva clear. No lid lag. EARS, NOSE, THROAT: External ears normal, hearing intact, nares patent. Moist mucous membranes. NECK: Normal range of motion, supple without lymphadenopathy, JVD, or masses. LUNGS: Breath sounds equal, slightly diminished at L lung base, otherwise good air movement. No wheezes, and no crackles. No accessory muscle use. HEART: Regular rate and rhythm, normal S1 and S2 without murmur, rub or gallop. ABDOMEN: Clean, dry, and intact midline abdominal dressing over procedure site. Slightly distended with hypoactive bowel sounds. Soft, nontender, no guarding, no rebound, no masses. No hepatomegaly or splenomegaly. MUSCULOSKELETAL: Normal range of motion at all joints. No bony deformities or tenderness. No CVA tenderness. UPPER EXTREMITIES: 2+ pulses, warm, well-perfused. No cyanosis. No clubbing. Cap refill <2 seconds. No peripheral edema. LOWER EXTREMITIES: 2+ pulses, warm, well-perfused. No calf tenderness. No peripheral pitting edema. NEUROLOGICAL: Cranial nerves II-XII grossly intact. Normal speech. Normal gait. PSYCHIATRIC: Cooperative. Good eye contact. Appropriate mood and affect. Pt's brother at bedside and pt interactive. SKIN: Warm, dry, normal turgor, no rashes or lesions noted. Laboratory Results - last 24 hr 09/20/18 09/20/18 09/20/18 20:00 20:00 22:55 WBC 7.4 RBC 5.23 Hgb 16.0 Hct 46.8 MCV 89.5 MCH 30.5 MCHC 34.1 RDW 15.0 Plt Count 243 MPV 8.5 Absolute Neuts (auto) 3.7 Neutrophils % 49.5 Lymphocytes % 33.9 Monocytes % 10.5 H Eosinophils % 5.4 H Basophils % 0.7 Nucleated RBC % 0 PT with INR INR Sodium 141 Potassium 3.9 Chloride 102 Carbon Dioxide 31 Anion Gap 8 BUN 9 Creatinine 0.9 Creat Clearance w eGFR > 60 Random Glucose 92 Calcium 9.7 Phosphorus 4.0 Magnesium 2.2 Total Bilirubin 0.8 Direct Bilirubin AST 52 H ALT 130 H Alkaline Phosphatase 69 Total Protein 8.0 Albumin 4.0 Blood Type O POSITIVE Antibody Screen Negative Crossmatch IS Only See Detail 02/15/18 02/15/18 02/15/18 06:00 06:00 06:00 WBC 6.5 RBC 4.78 Hgb 14.5 Hct 42.6 MCV 89.1 MCH 30.3 MCHC 34.0 RDW 14.5 Plt Count 207 MPV 8.5 Absolute Neuts (auto) 3.3 Neutrophils % 50.6 Lymphocytes % 31.3 Monocytes % 11.3 H Eosinophils % 6.2 H Basophils % 0.6 Nucleated RBC % 0 PT with INR 13.10 H INR 1.16 H Sodium 143 Potassium 3.8 Chloride 105 Carbon Dioxide 29 Anion Gap 9 BUN 9 Creatinine 0.9 Creat Clearance w eGFR > 60 Random Glucose 86 Calcium 9.3 Phosphorus Magnesium Total Bilirubin 1.1 H Direct Bilirubin 0.2 AST 52 H ALT 116 H Alkaline Phosphatase 61 Total Protein 7.1 Albumin 3.5 Blood Type Antibody Screen Crossmatch IS Only 02/15/18 02/15/18 18:50 18:50 WBC 10.8 H RBC 5.18 Hgb 15.8 Hct 46.8 MCV 90.5 MCH 30.6 MCHC 33.8 RDW 14.9 Plt Count 237 MPV 9.2 Absolute Neuts (auto) 9.5 H Neutrophils % 88.1 H D Lymphocytes % 5.7 L D Monocytes % 6.0 Eosinophils % 0.1 D Basophils % 0.1 Nucleated RBC % 0 PT with INR INR Sodium 141 Potassium 4.7 Chloride 105 Carbon Dioxide 29 Anion Gap 7 L BUN 13 Creatinine 1.4 H Creat Clearance w eGFR 55.05 Random Glucose 119 H Calcium 8.7 Phosphorus Magnesium Total Bilirubin 0.9 Direct Bilirubin AST 52 H ALT 113 H Alkaline Phosphatase 55 Total Protein 6.5 Albumin 3.1 L Blood Type Antibody Screen Crossmatch IS Only Active Medications Generic Name Dose Route Start Last Admin Trade Name Freq PRN Reason Stop Dose Admin Chlorhexidine Gluconate 1 applic 02/15/18 22:00 Hibiclens For Decolonization - TP HS MELVI Heparin Sodium (Porcine) 5,000 unit 02/15/18 22:00 Heparin - SQ TID MELVI Hydromorphone HCl 10 mg 02/15/18 19:49 02/15/18 19:20 Dilaudid Herb Grower - CASTING SORTER 02/22/18 17:02 10 mg CASTING SORTER MELVI Administration Protocol Lactated Ringer's 1,000 ml in 1,000 mls @ 100 mls/hr 02/15/18 19:49 Lactated Ringers Solution IV ASDIR MELVI Mupirocin 1 applic 02/15/18 22:00 Bactroban Ointment (For Decolonization) - NS 02/20/18 21:59 BID MELVI Ondansetron HCl 4 mg 02/15/18 19:49 Zofran Injection IVPUSH Q8H PRN NAUSEA Pantoprazole Sodium 40 mg 02/16/18 10:00 Protonix Iv IVPUSH DAILY [facility] ASSESSMENT/PLAN: L colon mass and umbilical hernia 1. CVS -HTN: pt not currently on any home Meds -Continue to monitor and intervene if necessary 2. GI (Likely adenocarcinoma of distal colon) -02/14 Endoscopy: 1) Circumferential, nearly obstructing, bleeding lesion @ 50 cm, biopsies and tattooed at both ends (~ 3-4 cm). 2) 1 cm pedunculated polyp was lifted with NS and hot snared off ICV, retried and sent to pathology -CT chest/abdomen/pelvis: almost complete resolution of pericolonic inflammatory changes at splenic flexure, concentric wall thickening at splenic flexure, mildly enlarged pericolonic lymph nodes, 2.3 cm hypodense lesion of right hepatic lobe, 0.3 cm RUL lung nodule -MRI not completed due to pt claustrophobia -Left hemicolectomy with umbilical hernia repair done today by Dr. Conway Operative Note (Dr. Conway): "Large palpable concentric mass splenic with inked serosal margins, surgical margins appeared normal, no sign of metastatic disease. Primary [id number] stapled anastomosis. Umbilical hernia incarcerated with omental fat, primarily repaired." EBL 150; replaced 4500 crystalloid -Hematology/oncology consult (Dr. Santo) -- CEA ordered, pending results -F/U surgical pathology report/ potential liver biopsy -CASTING SORTER Dilaudid for pain control -Clear liquid diet -- once pt can tolerate clear liquids, discontinue LR @100 mL /hr to avoid abdominal compartment syndrome -Polk catheter -Zofran 4 mg Q8hr PRN for nausea -Protonix 40 IV Qday 5. DVT prophylaxis -Heparin 5000 u TID -SCDs b/l -Ambulation tonight after surgery if possible -ICS Q1hr 6. FEN/Diet -Currently LR @100mL/hr -- discontinue as soon as pt tolerates clear liquids -Monitor electrolytes and replete as needed Dispo: Pt will be monitored post-procedure in the ICU. Problem List - Problems (1) Colonic mass Code(s): K63.9 - DISEASE OF INTESTINE, UNSPECIFIED (2) Diverticulitis of both large and small intestine with abscess Code(s): K57.40 - DVTRCLI OF BOTH SMALL AND LG INT W PERF AND ABSCS W/O BLEED Qualifiers: Diverticulitis bleeding: without bleeding Qualified Code(s): K57.40 - Diverticulitis of both small and large intestine with perforation and abscess without bleeding (3) HTN (hypertension) Code(s): I10 - ESSENTIAL (PRIMARY) HYPERTENSION Qualifiers: Hypertension type: essential hypertension Qualified Code(s): I10 - Essential (primary) hypertension (4) Rectal bleeding Code(s): K62.5 - HEMORRHAGE OF ANUS AND RECTUM Visit type - Emergency Visit Emergency Visit: No - New Patient This patient is new to me today: Yes Date on this admission: 02/15/18 - Critical Care Critical Care patient: Yes Total Critical Care Time (in minutes): 40 Critical Care Statement: The care of this patient involved high complexity decision making to prevent further life threatening deterioration of the patient 's condition and/or to evaluate & treat vital organ system(s) failure or risk of failure.
[2018-02-15] MEDS: CHLORHEXIDINE GLUCONATE 4% CLEANSER FOR DECOLONIZATION TP SCH (22:44)
[2018-02-15] MEDS: MUPIROCIN 2% TOPICAL OINTMENT FOR DECOLONIZATION NS SCH (22:46)
[2018-02-16 05:55] LABS: HEMATOCRIT 44.4 % (35.4-49); HEMOGLOBIN 14.8 GM/dL (11.7-16.9); MCH 29.9 pg (25.7-33.7); MCHC 33.3 g/dl (32.0-35.9); MEAN CELL VOLUME 89.7 fl (80-96); PLATELET COUNT 222 K/MM3 (134-434); RBC 4.94 M/mm3 (4.00-5.60); RDW 14.6 % (11.9-15.9); WHITE BLOOD COUNT 12.7 K/mm3 (4.0-10.0)
[2018-02-16 06:26] LABS: ALBUMIN 3.3 g/dl (3.4-5.0); ALK PHOS 53 U/L (45-117); ANION GAP 8 MMOL/L (8-16); BILIRUBIN,TOTAL 1.3 mg/dL (0.2-1); BLOOD UREA NITROGEN 16 mg/dL (7-18); CALCIUM 8.9 mg/dL (8.5-10.1); CHLORIDE 102 mmol/L (98-107); CO2 29 mmol/L (21-32); CREATININE 1.1 mg/dL (0.55-1.3); GLUCOSE,RANDOM 133 mg/dL (74-106); MAGNESIUM 2.2 mg/dL (1.8-2.4); PHOSPHOROUS 4.5 mg/dL (2.5-4.9); POTASSIUM 4.8 mmol/L (3.5-5.1); SGOT/AST 45 U/L (15-37); SGPT/ALT 101 U/L (13-61); SODIUM 139 mmol/L (136-145); TOT PROT 6.4 g/dl (6.4-8.2)
[2018-02-16] MEDS: HEPARIN NA (PORCINE) 5,000 UNITS/ML 1ML VIAL SQ SCH ×3 (06:27→23:00)
--- NOTE | 2018-02-16 09:54 | PN ---
Progress Note, Physician Chief Complaint: day #1 s/p open left hemicolectomy - Current Medication List Current Medications: Active Medications Chlorhexidine Gluconate (Hibiclens For Decolonization -) 1 applic TP HS [facility] Last Admin: 02/15/18 22:44 Dose: 1 applic Heparin Sodium (Porcine) (Heparin -) 5,000 unit SQ TID [facility] Last Admin: 02/16/18 06:27 Dose: 5,000 unit Hydromorphone HCl (Dilaudid Title Abstractor -) 10 mg ALL PURPOSE CLERK ALL PURPOSE CLERK [facility]; Protocol Stop: 02/22/18 17:02 Last Admin: 02/15/18 19:20 Dose: 10 mg Lactated Ringer's (Lactated Ringers Solution) 1,000 ml in 1,000 mls @ 100 mls/ hr IV ASDIR [facility] Last Admin: 02/15/18 20:30 Dose: 0 mls Mupirocin (Bactroban Ointment (For Decolonization) -) 1 applic NS BID [facility] Stop: 02/20/18 21:59 Last Admin: 02/15/18 22:46 Dose: 1 applic Ondansetron HCl (Zofran Injection) 4 mg IVPUSH Q8H PRN PRN Reason: NAUSEA Pantoprazole Sodium (Protonix Iv) 40 mg IVPUSH DAILY [facility] - Objective Vital Signs: Vital Signs Temperature 98.1 F 02/16/18 05:00 Pulse Rate 88 02/16/18 08:00 Respiratory Rate 18 02/16/18 08:00 Blood Pressure 160/90 02/16/18 08:00 O2 Sat by Pulse Oximetry (%) 97 02/16/18 08:26 Labs: CBC, BMP 02/16/18 05:30 02/16/18 05:30 INR, PTT INR 1.16 (0.83-1.09) H 02/15/18 06:00 Assessment/Plan Doing well s/p GA with TAP block and ALL PURPOSE CLERK for open colectomy. Pain overall controlled with ALL PURPOSE CLERK- pt does not want to use too much opioid. In some pain but currently tolerable. No anesthetic issues/complications
--- NOTE | 2018-02-16 10:07 | PN ---
Physical Exam: SUBJECTIVE: Patient seen and examined at bedside this morning. He is POD#1 s/p open left hemicolectomy, and umbilical hernia repair. He endorsed 10/10 pain yesterday evening which has improved this morning to approx. 5/10 intensity. Pain is sharp, worst overlying surgical incision site and exacerbated with movement. Tolerating liquid diet without nausea or vomiting. Has not passed flatus or bowel movement. Urinating with newberry catheter without dysuria, or pain at catheter insertion site. Denies headache, lightheadedness, fevers, chills, shortness of breath, chest pain, palpitations, nausea, vomiting. OBJECTIVE: Vital Signs Period Temp Pulse Resp BP Sys/Santizo Pulse Ox Last 24 Hr 97.8 F-98.7 F 68-88 10- 112-225/63-101 95-100 GENERAL: The patient is awake, alert, and fully oriented, in no acute distress. HEAD: Normocephalic, atraumatic EYES: PERRLA, extraocular movements intact, sclera anicteric, no conjunctival injection. ENT: Oropharynx clear without exudates or lesions, moist mucous membranes. NECK: Supple without lymphadenopathy. LUNGS: Breath sounds equal, clear to auscultation bilaterally, no wheezes, no crackles. HEART: Regular rate and rhythm, S1, S2 without murmur, rub or gallop. ABDOMEN: Horizontal surgical incision s/p open left regine colectomy and umbilical hernia repair. No purulent drainage noted. Tender to palpation at surgical site. Nondistended. Hypoactive bowel sounds X4 quadrants. No guarding , no rebound. EXTREMITIES: 2+ pulses radial, and dorsalis pedis b/l. Warm. No edema b/l lower extremities. NEUROLOGICAL: Cranial nerves II through XII grossly intact. Normal speech. No gross focal deficits. strength 5/5 b/l upper and lower extremities. PSYCH: Appropriate mood and affect upon my encounter today. SKIN: Warm, dry, normal turgor. Laboratory Results - last 24 hr 02/14/18 02/14/18 02/15/18 13:10 20:00 18:50 WBC 10.8 H RBC 5.18 Hgb 15.8 Hct 46.8 MCV 90.5 MCH 30.6 MCHC 33.8 RDW 14.9 Plt Count 237 MPV 9.2 Absolute Neuts (auto) 9.5 H Neutrophils % 88.1 H D Lymphocytes % 5.7 L D Monocytes % 6.0 Eosinophils % 0.1 D Basophils % 0.1 Nucleated RBC % 0 Sodium Potassium Chloride Carbon Dioxide Anion Gap BUN Creatinine Creat Clearance w eGFR Random Glucose Calcium Phosphorus Magnesium Total Bilirubin AST ALT Alkaline Phosphatase Total Protein Albumin Carcinoembryonic Ag 20.7 H Blood Type O POSITIVE Antibody Screen Negative Crossmatch IS Only See Detail 02/15/18 02/16/18 02/16/18 18:50 05:30 05:30 WBC 12.7 H RBC 4.94 Hgb 14.8 Hct 44.4 MCV 89.7 MCH 29.9 MCHC 33.3 RDW 14.6 Plt Count 222 MPV 9.0 Absolute Neuts (auto) Neutrophils % Lymphocytes % Monocytes % Eosinophils % Basophils % Nucleated RBC % Sodium 141 139 Potassium 4.7 4.8 Chloride 105 102 Carbon Dioxide 29 29 Anion Gap 7 L 8 BUN 13 16 Creatinine 1.4 H 1.1 Creat Clearance w eGFR 55.05 > 60 Random Glucose 119 H 133 H Calcium 8.7 8.9 Phosphorus 4.5 Magnesium 2.2 Total Bilirubin 0.9 1.3 H AST 52 H 45 H ALT 113 H 101 H Alkaline Phosphatase 55 53 Total Protein 6.5 6.4 Albumin 3.1 L 3.3 L Carcinoembryonic Ag Blood Type Antibody Screen Crossmatch IS Only Active Medications Generic Name Dose Route Start Last Admin Trade Name Freq PRN Reason Stop Dose Admin Chlorhexidine Gluconate 1 applic 02/15/18 22:00 02/15/18 22:44 Hibiclens For Decolonization - TP 1 applic HS MELVI Administration Heparin Sodium (Porcine) 5,000 unit 02/15/18 22:00 02/16/18 06:27 Heparin - SQ 5,000 unit TID MELVI Administration Hydromorphone HCl 10 mg 02/15/18 19:49 02/15/18 19:20 Dilaudid Enterprise Infrastructure Architect - REHABILITATION ATTENDANT 02/22/18 17:02 10 mg REHABILITATION ATTENDANT MELVI Administration Protocol Lactated Ringer's 1,000 ml in 1,000 mls @ 100 mls/hr 02/15/18 19:49 02/15/18 20:30 Lactated Ringers Solution IV 0 mls ASDIR MELVI Administration Mupirocin 1 applic 02/15/18 22:00 02/15/18 22:46 Bactroban Ointment (For Decolonization) - NS 02/20/18 21:59 1 applic BID MELVI Administration Ondansetron HCl 4 mg 02/15/18 19:49 Zofran Injection IVPUSH Q8H PRN NAUSEA Pantoprazole Sodium 40 mg 02/16/18 10:00 Protonix Iv IVPUSH DAILY MELVI IMAGING CT chest, abdomen, pelvis: Nonsepecific 2.3 cm right hepatic lobe hypodense lesion. Hemangioma vs. metastatic disease. Nonspecific 0.3cm right upper lobe pulmonary nodule noted. MRI: 1.2 cm posterior hepatic lobe hyperintense lesion, 2-3mm right hepatic dome hyperintense lesion. Proximal descending colon wall thickening with few adjacent lymph nodes. Colonoscopy: Circumferential mass in left colon, distal descending colon, proximal sigmoid colon. Multiple biopsies performed. 10mm pedunculated polyp at ileocecal valve. ASSESSMENT/PLAN: Patient is a 42 year old male recently admitted for intraabdominal abscess presents after colonoscopy finding of nearly obstructive apple-core lesion in distal colon. He is POD #1 s/p open left hemicolectomy, and umbilical hernia repair. Adenocarcinoma of distal colon -Surgical consult (Dr. Conway) appreciated: POD#1 s/p left hemicolectomy and umbilical hernia repair. Will D/C newberry catheter, continue REHABILITATION ATTENDANT, and encourage incentive spirometer, and ambulation. -GI consult (Dr. Rocha) appreciated: Pathology findings significant for adenocarcinoma -Hematology/ oncology consult (Dr. Santo) appreciated: Will follow CEA, and biopsy results. Patient will require MRI with contrast, and PET scan O/P. -Pathology report from colonoscopy noted Adenocarcinoma. -Hydromorphone 10mg REHABILITATION ATTENDANT -Zofran 4mg IV Q8H Hypertension -Elevation may be due to anxiety over procedure/ pathology results, or pain. -Will follow BP closely, and consider initiating BP medications if increases. FEN -No IV fluids. Tolerating oral intake. Will encourage judicious oral hydration. -Follow CMP -Full liquid diet. Prophylaxis -Heparin 5000units subq TID -Pantoprazole 40mg IV daily Disposition -Continue care in ICU, POD#1 s/p open left hemicolectomy, and umbilical hernia repair. Visit type - Emergency Visit Emergency Visit: Yes ED Registration Date: 09/20/18 Care time: The patient presented to the Emergency Department on the above date and was hospitalized for further evaluation of their emergent condition. - New Patient This patient is new to me today: No - Critical Care Critical Care patient: Yes Total Critical Care Time (in minutes): 35 Critical Care Statement: The care of this patient involved high complexity decision making to prevent further life threatening deterioration of the patient 's condition and/or to evaluate & treat vital organ system(s) failure or risk of failure. - Discharge Referral Referred to [facility] Med [facility].: No
[2018-02-16] MEDS: PANTOPRAZOLE SODIUM 40 MG VIAL IVPUSH SCH (10:19)
--- NOTE | 2018-02-16 11:00 | PN ---
Progress Note, Physician Chief Complaint: colon mass History of Present Illness: 42yo male PMH obesity, diverticulitis (last episode 01/19) and presumed malignancy left colon presented for an elective follow up colonoscopy after and episode of diverticulitis. He was noted to to have an apple core lesion at 50cm from anal verge. He has been stable postoperatively. He is ambulating and on sips of clear liquids. - Current Medication List Current Medications: Active Medications Chlorhexidine Gluconate (Hibiclens For Decolonization -) 1 applic TP HS [facility] Last Admin: 02/15/18 22:44 Dose: 1 applic Heparin Sodium (Porcine) (Heparin -) 5,000 unit SQ TID [facility] Last Admin: 02/16/18 06:27 Dose: 5,000 unit Hydromorphone HCl (Dilaudid Hot Knife Cutter -) 10 mg PILLOWCASE CLEANER PILLOWCASE CLEANER [facility]; Protocol Stop: 02/22/18 17:02 Last Admin: 02/15/18 19:20 Dose: 10 mg Mupirocin (Bactroban Ointment (For Decolonization) -) 1 applic NS BID [facility] Stop: 02/20/18 21:59 Last Admin: 02/15/18 22:46 Dose: 1 applic Ondansetron HCl (Zofran Injection) 4 mg IVPUSH Q8H PRN PRN Reason: NAUSEA Pantoprazole Sodium (Protonix Iv) 40 mg IVPUSH DAILY [facility] Last Admin: 02/16/18 10:19 Dose: 40 mg - Objective Vital Signs: Vital Signs Temperature 98.6 F 02/16/18 10:00 Pulse Rate 86 02/16/18 10:00 Respiratory Rate 16 02/16/18 10:00 Blood Pressure 134/87 02/16/18 10:00 O2 Sat by Pulse Oximetry (%) 97 02/16/18 09:00 Vital Signs Period Temp Pulse Resp BP Sys/Santizo Pulse Ox Last 24 Hr 97.8 F-98.7 F 68-88 10-24 112-225/63-101 95-100 Constitutional: Yes: Well Nourished, No Distress, Calm, Obese Eyes: Yes: Conjunctiva Clear, EOM Intact HENT: Yes: Atraumatic, Normocephalic Neck: Yes: Supple, Trachea Midline Cardiovascular: Yes: Regular Rate and Rhythm, S1, S2 Respiratory: Yes: Regular, CTA Bilaterally Gastrointestinal: Yes: Hypoactive Bowel Sounds, Tenderness (incisonal). No: Distention ...Rectal Exam: Yes: Deferred Genitourinary: Yes: CVA Tenderness - Left, CVA Tenderness - Right Extremities: No: Cool, Cyanosis Edema: No Peripheral Pulses WNL: Yes Peripheral Pulses: Left Radial: 2+, Right Radial: 2+, Left Doralis Pedis: 2+, Right Dorsalis Pedis: 2+ Wound/Incision: Yes: Clean/Dry, Well Approximated, [place] Intact, Dressing Dry and Intact Neurological: Yes: Alert, Oriented Psychiatric: Yes: Alert, Oriented Labs: CBC, BMP 02/16/18 05:30 02/16/18 05:30 INR, PTT INR 1.16 (0.83-1.09) H 02/15/18 06:00 Problem List - Problems (1) Colonic mass Assessment/Plan: 42 yo male with HTN and resolved diverticulitis presented after colonoscopy with near obstructing apple core mass at 50cm from anal verge. he noted that some rectal bleeding started since the colonoscopy. POD#1 s/p Left hemicolectomy and umbilical hernia repair. sips of Clear liquid diet Out of bed/ Ambulate Continue PILLOWCASE CLEANER D/C newberry encourage incentive spirometer will follow This patient is in guarded condition. Time spent reviewing chart, examining patient, talking with providers and/or family and documentation is 45 minutes. Code(s): K63.9 - DISEASE OF INTESTINE, UNSPECIFIED (2) Diverticulitis of both large and small intestine with abscess Code(s): K57.40 - DVTRCLI OF BOTH SMALL AND LG INT W PERF AND ABSCS W/O BLEED Qualifiers: Diverticulitis bleeding: without bleeding Qualified Code(s): K57.40 - Diverticulitis of both small and large intestine with perforation and abscess without bleeding (3) HTN (hypertension) Code(s): I10 - ESSENTIAL (PRIMARY) HYPERTENSION Qualifiers: Hypertension type: essential hypertension Qualified Code(s): I10 - Essential (primary) hypertension (4) Rectal bleeding Code(s): K62.5 - HEMORRHAGE OF ANUS AND RECTUM
[2018-02-16] MEDS ORDERED: CEFOTETAN DISODIUM 2 GM in DEXTROSE 5%-WATER - 100 ML IVPB ONE (11:01)
[2018-02-16] MEDS: MUPIROCIN 2% TOPICAL OINTMENT FOR DECOLONIZATION NS SCH (11:16)
[2018-02-16] MEDS ORDERED: PT OWN MED DRAWER 7, Y5N ONE (11:58)
[2018-02-16] MEDS: HYDROmorphone *PCA* 10MG/50ML DISP.SYRIN PCA SCH ×2 (12:08→22:00)
--- NOTE | 2018-02-16 15:24 | PN ---
Teaching Attending Note Name of Resident: Asa Burton ATTENDING PHYSICIAN STATEMENT I saw and evaluated the patient. I reviewed the resident's note and discussed the case with the resident. I agree with the resident's findings and plan as documented. SUBJECTIVE: No fever or chills. Has pain in abd . did not pass gas yet. dry mouth. no N/V. OBJECTIVE: NAD, awake , and cooperaitve CV; RRR Lungs: CTAB Abd: mid line surgical dressing. No BS heard. obese . 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 POD1 - IVF - clears - pain control: GRANULAR OPERATOR - Next step: ? PET scan . will d/w ONC 2- h/o HTN: follow. not on any meds . slightly elevated due to pain heparin sq and Scds
[2018-02-16] MEDS: CHLORHEXIDINE GLUCONATE 4% CLEANSER FOR DECOLONIZATION TP SCH (22:30)
[2018-02-17 05:44] LABS: HEMOGLOBIN 13.5 GM/dL (11.7-16.9); MCH 31.3 pg (25.7-33.7); MCHC 34.6 g/dl (32.0-35.9); MEAN CELL VOLUME 90.3 fl (80-96); MEAN PLT VOLUME 8.6 fl (7.5-11.1); PLATELET COUNT 194 K/MM3 (134-434); RBC 4.32 M/mm3 (4.00-5.60); RDW 14.7 % (11.9-15.9); WHITE BLOOD COUNT 10.6 K/mm3 (4.0-10.0)
[2018-02-17] MEDS: HEPARIN NA (PORCINE) 5,000 UNITS/ML 1ML VIAL SQ SCH ×2 (05:55→13:50)
[2018-02-17 06:12] LABS: ALBUMIN 2.9 g/dl (3.4-5.0); ALK PHOS 50 U/L (45-117); ANION GAP 3 MMOL/L (8-16); BLOOD UREA NITROGEN 16 mg/dL (7-18); CALCIUM 8.3 mg/dL (8.5-10.1); CHLORIDE 102 mmol/L (98-107); CO2 33 mmol/L (21-32); CREATININE 1.2 mg/dL (0.55-1.3); GLUCOSE,RANDOM 76 mg/dL (74-106); MAGNESIUM 2.1 mg/dL (1.8-2.4); PHOSPHOROUS 2.8 mg/dL (2.5-4.9); POTASSIUM 4.2 mmol/L (3.5-5.1); SGOT/AST 40 U/L (15-37); SGPT/ALT 71 U/L (13-61); SODIUM 139 mmol/L (136-145); TOT PROT 6.3 g/dl (6.4-8.2)
[2018-02-17] MEDS: MUPIROCIN 2% TOPICAL OINTMENT FOR DECOLONIZATION NS SCH (09:43)
[2018-02-17] MEDS: PANTOPRAZOLE SODIUM 40 MG VIAL IVPUSH SCH (09:43)
--- NOTE | 2018-02-17 11:34 | PN ---
Progress Note, Physician Chief Complaint: colon mass History of Present Illness: 42yo male PMH obesity, diverticulitis (last episode 01/19) and presumed malignancy left colon presented for an elective follow up colonoscopy after and episode of diverticulitis. He was noted to to have an apple core lesion at 50cm from anal verge. He has been stable postoperatively. He is ambulating and on sips of clear liquids. - Current Medication List Current Medications: Active Medications Chlorhexidine Gluconate (Hibiclens For Decolonization -) 1 applic TP HS [facility] Last Admin: 02/16/18 22:30 Dose: 1 applic Heparin Sodium (Porcine) (Heparin -) 5,000 unit SQ TID [facility] Last Admin: 02/17/18 05:55 Dose: 5,000 unit Hydromorphone HCl (Dilaudid Supervisor Garage -) 10 mg OFFICE AUTOMATION CLERK OFFICE AUTOMATION CLERK [facility]; Protocol Stop: 02/22/18 17:02 Last Admin: 02/16/18 22:00 Dose: 10 mg Mupirocin (Bactroban Ointment (For Decolonization) -) 1 applic NS BID [facility] Stop: 02/20/18 21:59 Last Admin: 02/17/18 09:43 Dose: 1 applic Ondansetron HCl (Zofran Injection) 4 mg IVPUSH Q8H PRN PRN Reason: NAUSEA Pantoprazole Sodium (Protonix Iv) 40 mg IVPUSH DAILY [facility] Last Admin: 02/17/18 09:43 Dose: 40 mg - Objective Vital Signs: Vital Signs Temperature 99.3 F 02/17/18 09:46 Pulse Rate 88 02/17/18 10:00 Respiratory Rate 22 H 02/17/18 10:00 Blood Pressure 137/89 02/17/18 10:00 O2 Sat by Pulse Oximetry (%) 95 02/17/18 09:47 Constitutional: Yes: Well Nourished, No Distress, Calm Eyes: Yes: Conjunctiva Clear, EOM Intact HENT: Yes: Atraumatic, Normocephalic Neck: Yes: Supple, Trachea Midline Cardiovascular: Yes: Regular Rate and Rhythm, S1, S2 Respiratory: Yes: Regular, CTA Bilaterally Gastrointestinal: Yes: Normal Bowel Sounds, Soft, Abdomen, Obese, Tenderness ( incisonal). No: Distention ...Rectal Exam: Yes: Deferred Genitourinary: No: CVA Tenderness - Left, CVA Tenderness - Right Extremities: No: Cool, Cyanosis Edema: No Peripheral Pulses WNL: Yes Peripheral Pulses: Left Radial: 2+, Right Radial: 2+, Left Doralis Pedis: 2+, Right Dorsalis Pedis: 2+ Integumentary: No: Jaundice, Rash Wound/Incision: Yes: Clean/Dry, Well Approximated, Dressing Dry and Intact Neurological: Yes: Alert, Oriented Psychiatric: Yes: Alert, Oriented Labs: CBC, BMP 02/17/18 05:05 02/17/18 05:05 INR, PTT INR 1.16 (0.83-1.09) H 02/15/18 06:00 Problem List - Problems (1) Colonic mass Assessment/Plan: 42 yo male with HTN and resolved diverticulitis presented after colonoscopy with near obstructing apple core mass at 50cm from anal verge. he noted that some rectal bleeding started since the colonoscopy. POD#2 s/p Left hemicolectomy and umbilical hernia repair. sips of Clear liquid diet Out of bed/ Ambulate Continue OFFICE AUTOMATION CLERK D/C newberry encourage incentive spirometer will follow This patient is in guarded condition. Time spent reviewing chart, examining patient, talking with providers and/or family and documentation is 45 minutes. Code(s): K63.9 - DISEASE OF INTESTINE, UNSPECIFIED (2) Diverticulitis of both large and small intestine with abscess Code(s): K57.40 - DVTRCLI OF BOTH SMALL AND LG INT W PERF AND ABSCS W/O BLEED Qualifiers: Diverticulitis bleeding: without bleeding Qualified Code(s): K57.40 - Diverticulitis of both small and large intestine with perforation and abscess without bleeding (3) HTN (hypertension) Code(s): I10 - ESSENTIAL (PRIMARY) HYPERTENSION Qualifiers: Hypertension type: essential hypertension Qualified Code(s): I10 - Essential (primary) hypertension (4) Rectal bleeding Code(s): K62.5 - HEMORRHAGE OF ANUS AND RECTUM
[2018-02-17] MEDS ORDERED: morphine CARPU-JECT 4 MG/1 ML DISP.SYRIN IVPUSH PRN (12:10)
[2018-02-17] MEDS ORDERED: oxyCODONE HCL 5 MG TABLET PO PRN (12:11)
--- NOTE | 2018-02-17 12:18 | PN ---
Progress Note (short form) - Note Progress Note: Subjective: no fever or chills, tolerating fluids. abd pain is under control. he is not using HOSPITALIST PHYSICIAN much. no flatus , no BM. no OSB or cough Objective: Vital Signs: Last Vital Signs Temp Pulse Resp BP Pulse Ox 99.3 F 92 H 18 140/99 97 02/17/18 09:46 02/17/18 12:00 02/17/18 12:00 02/17/18 12:00 02/17/18 12:13 Laboratory Results - last 24 hr 02/17/18 02/17/18 02/17/18 05:05 05:05 05:42 WBC 10.6 H RBC 4.32 Hgb 13.5 Hct 39.0 MCV 90.3 MCH 31.3 MCHC 34.6 RDW 14.7 Plt Count 194 MPV 8.6 Sodium 139 Potassium 4.2 Chloride 102 Carbon Dioxide 33 H Anion Gap 3 L BUN 16 Creatinine 1.2 Creat Clearance w eGFR > 60 POC Glucometer [id number] Random Glucose 76 Calcium 8.3 L Phosphorus 2.8 Magnesium 2.1 Total Bilirubin 1.0 AST 40 H ALT 71 H Alkaline Phosphatase 50 Total Protein 6.3 L Albumin 2.9 L Physical Exam: NAD, awake , and cooperaitve CV; RRR Lungs: CTAB. decreased breath sounds at bases b/l Abd: mid line surgical dressing. BS heard today. obese . 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 POD2. doing well , bowel sounds are present today - cont IVF - clears - not using HOSPITALIST PHYSICIAN much and does not want it . change to IV morphine and po oxy PRN - Next step: repeat triple phase MRI, if not PET scan, as out pt 2- h/o HTN: follow. not on any meds. slightly elevated due to pain heparin sq and Scds Dc tele Visit type - Emergency Visit Emergency Visit: Yes ED Registration Date: 02/14/18 Care time: The patient presented to the Emergency Department on the above date and was hospitalized for further evaluation of their emergent condition. - New Patient This patient is new to me today: No - Critical Care Critical Care patient: No
[2018-02-17] MEDS ORDERED: morphine SULFATE 4 MG/ML VIAL ONE ×2 (13:49→19:53)
[2018-02-17 15:15] VITALS: BMI 35.8
[2018-02-17] MEDS ORDERED: ONDANSETRON 4 MG/2 ML VIAL IVPUSH PRN (15:52)
[2018-02-17] MEDS: morphine CARPU-JECT 4 MG/1 ML DISP.SYRIN IVPUSH PRN ×2 (17:01→20:02)
--- NOTE | 2018-02-17 20:28 | PN ---
Progress Note (short form) - Note Progress Note: Pain management note Patient seen at bedside, COVERSTITCH ELASTIC ATTACHER has been discontinued since yesterday. Patient sitting in chair, tolerating PO clear liquid diet, getting morphine PRN. Dept of anesthesia will sign off care at this time.
[2018-02-17] MEDS: oxyCODONE HCL 5 MG TABLET PO PRN (21:13)
[2018-02-17] MEDS ORDERED: CHLORHEXIDINE GLUCONATE 4% CLEANSER FOR DECOLONIZATION TP SCH (22:00)
[2018-02-17] MEDS ORDERED: ACETAMINOPHEN 1000 MG/100 ML VIAL (NON FORMULARY) IVPB ONE (23:29)
[2018-02-18] MEDS ORDERED: ARTIFICIAL TEARS (POLYVINYL ALCOHOL) OPTH DROPS OU PRN (05:32)
[2018-02-18 05:50] LABS: BASO % 0.5 % (0-2.0); EOS % 2.6 % (0-4.5); HEMATOCRIT 35.2 % (35.4-49); HEMOGLOBIN 12.2 GM/dL (11.7-16.9); LYMPH % 18.9 % (8-40); MCH 30.9 pg (25.7-33.7); MCHC 34.7 g/dl (32.0-35.9); MEAN PLT VOLUME 8.2 fl (7.5-11.1); MONO % 12.6 % (3.8-10.2); NEUT % 65.4 % (42.8-82.8); PLATELET COUNT 200 K/MM3 (134-434); RBC 3.96 M/mm3 (4.00-5.60); RDW 14.3 % (11.9-15.9); WHITE BLOOD COUNT 10.7 K/mm3 (4.0-10.0)
[2018-02-18] MEDS: HEPARIN NA (PORCINE) 5,000 UNITS/ML 1ML VIAL SQ SCH ×5 (06:07→21:11)
[2018-02-18] MEDS: oxyCODONE HCL 5 MG TABLET PO PRN ×3 (06:07→21:10)
[2018-02-18 06:28] LABS: ALBUMIN 2.8 g/dl (3.4-5.0); ALK PHOS 46 U/L (45-117); ANION GAP 7 MMOL/L (8-16); BILIRUBIN,TOTAL 1.2 mg/dL (0.2-1); BLOOD UREA NITROGEN 15 mg/dL (7-18); CALCIUM 8.3 mg/dL (8.5-10.1); CHLORIDE 102 mmol/L (98-107); CO2 29 mmol/L (21-32); CREATININE 1.1 mg/dL (0.55-1.3); GLUCOSE,RANDOM 92 mg/dL (74-106); MAGNESIUM 1.9 mg/dL (1.8-2.4); PHOSPHOROUS 4.2 mg/dL (2.5-4.9); SGOT/AST 31 U/L (15-37); SGPT/ALT 57 U/L (13-61); SODIUM 138 mmol/L (136-145); TOT PROT 6.2 g/dl (6.4-8.2)
--- NOTE | 2018-02-18 09:08 | PN ---
Progress Note, Physician Chief Complaint: colon mass History of Present Illness: 42yo male PMH obesity, diverticulitis (last episode 01/19) and presumed malignancy left colon presented for an elective follow up colonoscopy after and episode of diverticulitis. He was noted to to have an apple core lesion at 50cm from anal verge. He has been stable postoperatively. He is ambulating and on sips of clear liquids. - Current Medication List Current Medications: Active Medications Artificial Tears (Artificial Tears) 1 drop OU BID PRN PRN Reason: DRY EYES Chlorhexidine Gluconate (Hibiclens For Decolonization -) 1 applic TP HS [facility] Last Admin: 02/17/18 23:00 Dose: 1 applic Heparin Sodium (Porcine) (Heparin -) 5,000 unit SQ TID [facility] Last Admin: 02/18/18 06:07 Dose: 5,000 unit Morphine Sulfate (Morphine Injection -) 4 mg IVPUSH Q3H PRN PRN Reason: PAIN LEVEL 6-10 Last Admin: 02/17/18 20:02 Dose: 4 mg Mupirocin (Bactroban Ointment (For Decolonization) -) 1 applic NS BID [facility] Stop: 02/20/18 21:59 Last Admin: 02/18/18 00:00 Dose: Not Given Ondansetron HCl (Zofran Injection) 4 mg IVPUSH Q8H PRN PRN Reason: NAUSEA Oxycodone HCl (Roxicodone -) 10 mg PO Q4H PRN PRN Reason: PAIN LEVEL 1-5 Last Admin: 02/18/18 06:07 Dose: 10 mg Pantoprazole Sodium (Protonix Iv) 40 mg IVPUSH DAILY [facility] - Objective Vital Signs: Vital Signs Temperature 99.2 F 02/18/18 08:00 Pulse Rate 70 02/18/18 08:00 Respiratory Rate 19 02/18/18 08:00 Blood Pressure 113/87 02/18/18 08:00 O2 Sat by Pulse Oximetry (%) 95 02/18/18 08:00 Vital Signs Period Temp Pulse Resp BP Sys/Santizo Pulse Ox Last 24 Hr 98.4 F-100.6 F 70-92 18-22 113-140/87-99 94-97 Intake & Output 02/17/18 02/18/18 02/18/18 23:59 07:59 15:59 Intake Total 240 Output Total 1600 600 Balance -1600 -360 Weight 264 lb Intake: Oral 240 Output: Urine 1600 600 Void 1600 600 Other: Voiding Method Urinal Urinal Constitutional: Yes: Well Nourished, No Distress, Calm Eyes: Yes: Conjunctiva Clear, EOM Intact HENT: Yes: Atraumatic, Normocephalic Neck: Yes: Supple, Trachea Midline Cardiovascular: Yes: Regular Rate and Rhythm, S1, S2 Respiratory: Yes: Regular, CTA Bilaterally Gastrointestinal: Yes: Soft, Hypoactive Bowel Sounds, Tenderness (incisonal). No: Distention ...Rectal Exam: Yes: Deferred Genitourinary: No: CVA Tenderness - Left, CVA Tenderness - Right Musculoskeletal: No: Muscle Pain, Muscle Weakness Extremities: Yes: Cool. No: Cyanosis Edema: No Peripheral Pulses WNL: Yes Peripheral Pulses: Left Radial: 2+, Right Radial: 2+, Left Doralis Pedis: 2+, Right Dorsalis Pedis: 2+ Integumentary: No: Jaundice, Rash, Venous Stasis Changes Wound/Incision: Yes: Clean/Dry, Well Approximated, [place] Intact. No: Draining , Bleeding Neurological: Yes: Alert, Oriented Psychiatric: Yes: Alert, Oriented Labs: CBC, BMP 02/18/18 05:30 02/18/18 05:30 INR, PTT INR 1.16 (0.83-1.09) H 02/15/18 06:00 Problem List - Problems (1) Colonic mass Assessment/Plan: 42 yo male with HTN and resolved diverticulitis presented after colonoscopy with near obstructing apple core mass at 50cm from anal verge. he noted that some rectal bleeding started since the colonoscopy. POD#3 s/p Left hemicolectomy and umbilical hernia repair. sips of Clear liquid diet Out of bed/ Ambulate Continue MANAGER OF HOUSEKEEPING D/C newberry encourage incentive spirometer will follow This patient is in guarded condition. Time spent reviewing chart, examining patient, talking with providers and/or family and documentation is 45 minutes. Code(s): K63.9 - DISEASE OF INTESTINE, UNSPECIFIED (2) Diverticulitis of both large and small intestine with abscess Code(s): K57.40 - DVTRCLI OF BOTH SMALL AND LG INT W PERF AND ABSCS W/O BLEED Qualifiers: Diverticulitis bleeding: without bleeding Qualified Code(s): K57.40 - Diverticulitis of both small and large intestine with perforation and abscess without bleeding (3) HTN (hypertension) Code(s): I10 - ESSENTIAL (PRIMARY) HYPERTENSION Qualifiers: Hypertension type: essential hypertension Qualified Code(s): I10 - Essential (primary) hypertension (4) Rectal bleeding Code(s): K62.5 - HEMORRHAGE OF ANUS AND RECTUM
[2018-02-18] MEDS: PANTOPRAZOLE SODIUM 40 MG VIAL IVPUSH SCH (09:34)
[2018-02-18] MEDS: MUPIROCIN 2% TOPICAL OINTMENT FOR DECOLONIZATION NS SCH ×3 (09:36→18:54)
--- NOTE | 2018-02-18 10:29 | PN ---
Physical Exam: SUBJECTIVE: Patient seen and examined. He has no complaints. He says he has some abdominal discomfort when he moves. He is tolerating clear liquids. He is not passing flatus. He is ambulating and using incentive spirometer. OBJECTIVE: Vital Signs Period Temp Pulse Resp BP Sys/Santizo Pulse Ox Last 24 Hr 98.4 F-100.6 F 70-92 18-19 112-140/84-99 94-97 GENERAL: The patient is awake, alert, and fully oriented, in no acute distress. LUNGS: Breath sounds equal, clear to auscultation bilaterally, no wheezes, no crackles, no accessory muscle use. HEART: Regular rate and rhythm, S1, S2 without murmur, rub or gallop. ABDOMEN: Obese, soft, nontender, nondistended, normoactive bowel sounds, no guarding, no rebound, no hepatosplenomegaly, no masses. EXTREMITIES: 2+ pulses, warm, well-perfused, no edema. Laboratory Results - last 24 hr 02/14/18 02/18/18 02/18/18 20:00 05:30 05:30 WBC 10.7 H RBC 3.96 L Hgb 12.2 Hct 35.2 L MCV 89.0 MCH 30.9 MCHC 34.7 RDW 14.3 Plt Count 200 MPV 8.2 Absolute Neuts (auto) 7.0 Neutrophils % 65.4 D Lymphocytes % 18.9 D Monocytes % 12.6 H D Eosinophils % 2.6 D Basophils % 0.5 D Nucleated RBC % 0 Sodium 138 Potassium 4.0 Chloride 102 Carbon Dioxide 29 Anion Gap 7 L BUN 15 Creatinine 1.1 Creat Clearance w eGFR > 60 Random Glucose 92 Calcium 8.3 L Phosphorus 4.2 Magnesium 1.9 Total Bilirubin 1.2 H AST 31 ALT 57 Alkaline Phosphatase 46 Total Protein 6.2 L Albumin 2.8 L Crossmatch IS Only See Detail Active Medications Generic Name Dose Route Start Last Admin Trade Name Freq PRN Reason Stop Dose Admin Artificial Tears 1 drop 02/18/18 05:32 Artificial Tears OU BID PRN DRY EYES Chlorhexidine Gluconate 1 applic 02/17/18 22:00 02/17/18 23:00 Hibiclens For Decolonization - TP 1 applic HS MELVI Administration Heparin Sodium (Porcine) 5,000 unit 02/17/18 22:00 02/18/18 06:07 Heparin - SQ 5,000 unit TID MELVI Administration Morphine Sulfate 4 mg 02/17/18 15:52 02/17/18 20:02 Morphine Injection - IVPUSH 4 mg Q3H PRN Administration PAIN LEVEL 6-10 Mupirocin 1 applic 02/17/18 22:00 02/18/18 09:36 Bactroban Ointment (For Decolonization) - NS 02/20/18 21:59 1 applic BID MELVI Administration Ondansetron HCl 4 mg 02/17/18 15:52 Zofran Injection IVPUSH Q8H PRN NAUSEA Oxycodone HCl 10 mg 02/17/18 15:52 02/18/18 06:07 Roxicodone - PO 10 mg Q4H PRN Administration PAIN LEVEL 1-5 Pantoprazole Sodium 40 mg 02/18/18 10:00 02/18/18 09:34 Protonix Iv IVPUSH 40 mg DAILY MELVI Administration ASSESSMENT/PLAN: This is a 42 year old man with a history of HTN and recent diverticular abscess of the splenic flexure who had a colonoscopy today and was found to have a circumferential, nearly obstructing, lesion of the left colon. 1. Left colon adenocarcinoma, nearly obstructing - s/p left hemicolectomy 02/15 - Continue clear liquid diet - Ambulation - Incentive spirometer - Pathology from colonoscopy biopsy shows adenocarcinoma with at least intramucosal invasion - Follow up surgical pathology - CT chest/abdomen/pelvis shows almost complete resolution of pericolonic inflammatory changes at splenic flexure, concentric wall thickening at splenic flexure, mildly enlarged pericolonic lymph nodes, 2.3 cm hypodense lesion of right hepatic lobe, 0.3 cm RUL lung nodule - MRI of abdomen shows 1.2 cm posterior right hepatic lobe lesion, 2-3 mm right hepatic dome lesion, both probable cysts, post contrast images not obtained secondary to claustrophobia 2. HTN - BP ok on no medications - Will continue to monitor 3. DVT prophylaxis - On heparin sq
--- NOTE | 2018-02-18 13:07 | PN ---
Teaching Attending Note Name of Resident: Yasmine Lawler ATTENDING PHYSICIAN STATEMENT I saw and evaluated the patient. I reviewed the resident's note and discussed the case with the resident. I agree with the resident's findings and plan as documented. SUBJECTIVE: Patient seen and examined in the ICU. Awake and alert. Abdominal pain is overall better. Tolerating liquids. Intake & Output 02/15/18 02/16/18 02/17/18 02/18/18 23:59 23:59 23:59 23:59 Intake Total 5050 3664 1500 240 Output Total 3619 702 2306 600 Balance 3200 2914 -1700 -360 Weight 264 lb 4.8 oz 264 lb 264 lb Last Vital Signs Temp Pulse Resp BP Pulse Ox 98.6 F 76 19 116/79 95 02/18/18 09:50 02/18/18 12:09 02/18/18 12:09 02/18/18 12:09 02/18/18 08:00 Active Medications Artificial Tears (Artificial Tears) 1 drop OU BID PRN PRN Reason: DRY EYES Chlorhexidine Gluconate (Hibiclens For Decolonization -) 1 applic TP HS [facility] Last Admin: 02/17/18 23:00 Dose: 1 applic Heparin Sodium (Porcine) (Heparin -) 5,000 unit SQ TID [facility] Last Admin: 02/18/18 13:05 Dose: 5,000 unit Morphine Sulfate (Morphine Injection -) 4 mg IVPUSH Q3H PRN PRN Reason: PAIN LEVEL 6-10 Last Admin: 02/17/18 20:02 Dose: 4 mg Mupirocin (Bactroban Ointment (For Decolonization) -) 1 applic NS BID [facility] Stop: 02/20/18 21:59 Last Admin: 02/18/18 09:36 Dose: 1 applic Ondansetron HCl (Zofran Injection) 4 mg IVPUSH Q8H PRN PRN Reason: NAUSEA Oxycodone HCl (Roxicodone -) 10 mg PO Q4H PRN PRN Reason: PAIN LEVEL 1-5 Last Admin: 02/18/18 13:04 Dose: 10 mg Pantoprazole Sodium (Protonix Iv) 40 mg IVPUSH DAILY [facility] Last Admin: 02/18/18 09:34 Dose: 40 mg GENERAL: awake, alert, oriented, in no acute distress. HEAD: Normocephalic, atraumatic EYES: PERRLA, extraocular movements intact, sclera anicteric, no conjunctival injection. ENT: Oropharynx clear without exudates or lesions, moist mucous membranes. NECK: Supple without lymphadenopathy. LUNGS: clear to auscultation bilaterally, no wheezes, no crackles. HEART: Regular rate and rhythm, S1, S2 without murmur, rub or gallop. ABDOMEN: Horizontal surgical incision, clean, (+) BS. No guarding, no rebound. EXTREMITIES: 2+ pulses radial, and dorsalis pedis b/l. Warm. No edema b/l lower extremities. NEUROLOGICAL: Non-focal SKIN: Warm, dry, normal turgor. Laboratory Results - last 24 hr 02/14/18 02/18/18 02/18/18 20:00 05:30 05:30 WBC 10.7 H RBC 3.96 L Hgb 12.2 Hct 35.2 L MCV 89.0 MCH 30.9 MCHC 34.7 RDW 14.3 Plt Count 200 MPV 8.2 Absolute Neuts (auto) 7.0 Neutrophils % 65.4 D Lymphocytes % 18.9 D Monocytes % 12.6 H D Eosinophils % 2.6 D Basophils % 0.5 D Nucleated RBC % 0 Sodium 138 Potassium 4.0 Chloride 102 Carbon Dioxide 29 Anion Gap 7 L BUN 15 Creatinine 1.1 Creat Clearance w eGFR > 60 Random Glucose 92 Calcium 8.3 L Phosphorus 4.2 Magnesium 1.9 Total Bilirubin 1.2 H AST 31 ALT 57 Alkaline Phosphatase 46 Total Protein 6.2 L Albumin 2.8 L Crossmatch IS Only See Detail ASSESSMENT/PLAN: POD # 3: Left hemicolectomy and umbilical hernia repair HTN Intraabdominal abscess Near obstructing lesion in distal colon PO per surgery VTE prophylaxis O2 as needed Staging per Oncology Pain control Surgical floor monitoring Dr Hsu
[2018-02-18] MEDS ORDERED: morphine SULFATE 4 MG/ML VIAL ONE (15:13)
[2018-02-18] MEDS: morphine CARPU-JECT 4 MG/1 ML DISP.SYRIN IVPUSH PRN (15:23)
--- NOTE | 2018-02-18 16:05 | PN ---
Progress Note (short form) - Note Progress Note: Ambulating. Tolerating clears. Pain controlled. Sx path pending. Care as per Sx.
--- NOTE | 2018-02-18 18:45 | PN ---
Physical Exam: SUBJECTIVE: - Reports feeling well today - Continued abdominal pain, less than previously - Still no flatus or BM OBJECTIVE: Vital Signs Period Temp Pulse Resp BP Sys/Santizo Pulse Ox Last 24 Hr 98.4 F-99.8 F 70-84 19-20 112-129/76-88 95-95 General: Comfortable, no acute distress HEENT: PERRL, EOMI, MMM, voice normal, normal neck ROM, no LAD Cards: RRR, no murmur appreciated Pulm: Comfortable on room air, clear to auscultation bilaterally Abd: Soft, nontender. Moderately distended. Midline incision with clean dressing in place. Ext: Atraumatic. No LE edema. ROM intact. Strength 5/5 and equal bilaterally Vasc: Extremities WWP. Palpable radial and pedal pulses bilaterally Skin: Normal color, no rashes or lesions Neuro: A&Ox3, CN grossly intact, normal speech, motor/sensory grossly intact and symmetric Psych: Mood appropriate to situation Laboratory Results - last 24 hr 02/14/18 02/18/18 02/18/18 20:00 05:30 05:30 WBC 10.7 H RBC 3.96 L Hgb 12.2 Hct 35.2 L MCV 89.0 MCH 30.9 MCHC 34.7 RDW 14.3 Plt Count 200 MPV 8.2 Absolute Neuts (auto) 7.0 Neutrophils % 65.4 D Lymphocytes % 18.9 D Monocytes % 12.6 H D Eosinophils % 2.6 D Basophils % 0.5 D Nucleated RBC % 0 Sodium 138 Potassium 4.0 Chloride 102 Carbon Dioxide 29 Anion Gap 7 L BUN 15 Creatinine 1.1 Creat Clearance w eGFR > 60 Random Glucose 92 Calcium 8.3 L Phosphorus 4.2 Magnesium 1.9 Total Bilirubin 1.2 H AST 31 ALT 57 Alkaline Phosphatase 46 Total Protein 6.2 L Albumin 2.8 L Crossmatch IS Only See Detail Active Medications Generic Name Dose Route Start Last Admin Trade Name Freq PRN Reason Stop Dose Admin Artificial Tears 1 drop 02/18/18 05:32 Artificial Tears OU BID PRN DRY EYES Chlorhexidine Gluconate 1 applic 02/17/18 22:00 02/17/18 23:00 Hibiclens For Decolonization - TP 1 applic HS MELVI Administration Heparin Sodium (Porcine) 5,000 unit 02/17/18 22:00 02/18/18 13:05 Heparin - SQ 5,000 unit TID MELVI Administration Morphine Sulfate 4 mg 02/17/18 15:52 02/18/18 15:23 Morphine Injection - IVPUSH 4 mg Q3H PRN Administration PAIN LEVEL 6-10 Mupirocin 1 applic 02/17/18 22:00 02/18/18 09:36 Bactroban Ointment (For Decolonization) - NS 02/20/18 21:59 1 applic BID MELVI Administration Ondansetron HCl 4 mg 02/17/18 15:52 Zofran Injection IVPUSH Q8H PRN NAUSEA Oxycodone HCl 10 mg 02/17/18 15:52 02/18/18 13:04 Roxicodone - PO 10 mg Q4H PRN Administration PAIN LEVEL 1-5 Pantoprazole Sodium 40 mg 02/18/18 10:00 02/18/18 09:34 Protonix Iv IVPUSH 40 mg DAILY MELVI Administration ASSESSMENT/PLAN: Isaias Allen is a 42yo man with a history of HTN, complicated diverticulitis , admitted with a colon mass. He is now s/p colon resection and recovering well. Neuro: - No issues, A&O. - Adequate pain control with morphine and oxycodone PRN CV: - h/o HTN - Has been HDS, not on meds at home - Monitor Pulm: - Comfortable on room air - Encourage OOB - IS 10x per hour Heme: - Hgb stable at 12.2 - Monitor daily CBC GI: - Tolerating clears, will advance per surgery - No flatus or BM yet Renal: - No issues ID: - Perioperative abx completed Endo: - No issues Psych: - No issues Musc: - OOB as tolerated PPx: - Low DVT risk, SCD's - Pantoprazole FEN: - Clears - SLIV - Replete lytes PRN Dispo: - Transfer to floor today Seen and discussed with Dr Hsu. Yasmine Lawler PGY1 Visit type - Emergency Visit Emergency Visit: No - New Patient This patient is new to me today: Yes Date on this admission: 02/18/18 - Critical Care Critical Care patient: Yes Total Critical Care Time (in minutes): 30 Critical Care Statement: The care of this patient involved high complexity decision making to prevent further life threatening deterioration of the patient 's condition and/or to evaluate & treat vital organ system(s) failure or risk of failure.
[2018-02-19] MEDS: oxyCODONE HCL 5 MG TABLET PO PRN ×3 (03:52→20:53)
[2018-02-19] MEDS: HEPARIN NA (PORCINE) 5,000 UNITS/ML 1ML VIAL SQ SCH ×3 (06:01→21:11)
[2018-02-19 07:39] LABS: HEMATOCRIT 30.8 % (35.4-49); HEMOGLOBIN 10.6 GM/dL (11.7-16.9); MCH 30.5 pg (25.7-33.7); MCHC 34.4 g/dl (32.0-35.9); MEAN CELL VOLUME 88.6 fl (80-96); MEAN PLT VOLUME 8.1 fl (7.5-11.1); PLATELET COUNT 224 K/MM3 (134-434); RBC 3.47 M/mm3 (4.00-5.60); RDW 14.7 % (11.9-15.9); WHITE BLOOD COUNT 11.2 K/mm3 (4.0-10.0)
[2018-02-19 08:03] LABS: ANION GAP 10 MMOL/L (8-16); BLOOD UREA NITROGEN 15 mg/dL (7-18); CALCIUM 8.3 mg/dL (8.5-10.1); CHLORIDE 105 mmol/L (98-107); CO2 29 mmol/L (21-32); CREATININE 1.1 mg/dL (0.55-1.3); GLUCOSE,RANDOM 88 mg/dL (74-106); MAGNESIUM 2.1 mg/dL (1.8-2.4); PHOSPHOROUS 3.7 mg/dL (2.5-4.9); POTASSIUM 3.9 mmol/L (3.5-5.1); SODIUM 143 mmol/L (136-145)
[2018-02-19] MEDS: PANTOPRAZOLE SODIUM 40 MG VIAL IVPUSH SCH (11:02)
--- NOTE | 2018-02-19 13:09 | PN ---
Physical Exam: SUBJECTIVE: Patient seen and examined. He has some incisional soreness but otherwise has no complaints. He has had several bowel movements today. OBJECTIVE: Vital Signs Period Temp Pulse Resp BP Sys/Santizo Pulse Ox Last 24 Hr 98 F-99.8 F 74-112 18-20 115-135/75-90 96-96 GENERAL: The patient is awake, alert, and fully oriented, in no acute distress. LUNGS: Breath sounds equal, clear to auscultation bilaterally, no wheezes, no crackles, no accessory muscle use. HEART: Regular rate and rhythm, S1, S2 without murmur, rub or gallop. ABDOMEN: Obese, soft, nontender, nondistended, normoactive bowel sounds, incision clean. EXTREMITIES: 2+ pulses, warm, well-perfused, no edema. Laboratory Results - last 24 hr 02/19/18 02/19/18 06:30 06:30 WBC 11.2 H RBC 3.47 L Hgb 10.6 L Hct 30.8 L MCV 88.6 MCH 30.5 MCHC 34.4 RDW 14.7 Plt Count 224 MPV 8.1 Sodium 143 Potassium 3.9 Chloride 105 Carbon Dioxide 29 Anion Gap 10 BUN 15 Creatinine 1.1 Creat Clearance w eGFR > 60 Random Glucose 88 Calcium 8.3 L Phosphorus 3.7 Magnesium 2.1 Active Medications Generic Name Dose Route Start Last Admin Trade Name Freq PRN Reason Stop Dose Admin Artificial Tears 1 drop 02/18/18 05:32 Artificial Tears OU BID PRN DRY EYES Heparin Sodium (Porcine) 5,000 unit 02/17/18 22:00 02/19/18 06:01 Heparin - SQ 5,000 unit TID MELVI Administration Morphine Sulfate 4 mg 02/17/18 15:52 02/18/18 15:23 Morphine Injection - IVPUSH 4 mg Q3H PRN Administration PAIN LEVEL 6-10 Ondansetron HCl 4 mg 02/17/18 15:52 Zofran Injection IVPUSH Q8H PRN NAUSEA Oxycodone HCl 10 mg 02/17/18 15:52 02/19/18 03:52 Roxicodone - PO 10 mg Q4H PRN Administration PAIN LEVEL 1-5 Pantoprazole Sodium 40 mg 02/18/18 10:00 02/19/18 11:02 Protonix Iv IVPUSH 40 mg DAILY MELVI Administration ASSESSMENT/PLAN: This is a 42 year old man with a history of HTN and recent diverticular abscess of the splenic flexure who had a colonoscopy today and was found to have a circumferential, nearly obstructing, lesion of the left colon. 1. Left colon adenocarcinoma, nearly obstructing - s/p left hemicolectomy 02/15 - Tolerating regular diet - Pathology from colonoscopy biopsy shows adenocarcinoma with at least intramucosal invasion - Follow up surgical pathology - CT chest/abdomen/pelvis shows almost complete resolution of pericolonic inflammatory changes at splenic flexure, concentric wall thickening at splenic flexure, mildly enlarged pericolonic lymph nodes, 2.3 cm hypodense lesion of right hepatic lobe, 0.3 cm RUL lung nodule - MRI of abdomen shows 1.2 cm posterior right hepatic lobe lesion, 2-3 mm right hepatic dome lesion, both probable cysts, post contrast images not obtained secondary to claustrophobia 2. HTN - BP ok on no medications - Will continue to monitor 3. DVT prophylaxis - On heparin sq
[2018-02-20] MEDS: HEPARIN NA (PORCINE) 5,000 UNITS/ML 1ML VIAL SQ SCH (06:22)
[2018-02-20] MEDS: oxyCODONE HCL 5 MG TABLET PO PRN ×2 (06:42→11:19)
[2018-02-20 07:55] LABS: EOS % 7.4 % (0-4.5); HEMATOCRIT 31.2 % (35.4-49); HEMOGLOBIN 10.6 GM/dL (11.7-16.9); LYMPH % 20.7 % (8-40); MCH 30.7 pg (25.7-33.7); MEAN CELL VOLUME 90.1 fl (80-96); MEAN PLT VOLUME 8.2 fl (7.5-11.1); MONO % 11.5 % (3.8-10.2); NEUT % 59.4 % (42.8-82.8); PLATELET COUNT 256 K/MM3 (134-434); RBC 3.46 M/mm3 (4.00-5.60); RDW 14.5 % (11.9-15.9); WHITE BLOOD COUNT 10.2 K/mm3 (4.0-10.0)
[2018-02-20 09:49] VITALS: BP 130/77; PULSE 93; TEMP 98.5
--- NOTE | 2018-02-20 10:14 | PN ---
Progress Note, Physician Chief Complaint: colon mass History of Present Illness: 42yo male PMH obesity, diverticulitis (last episode 01/19) and presumed malignancy left colon presented for an elective follow up colonoscopy after and episode of diverticulitis. He was noted to to have an apple core lesion at 50cm from anal verge. He has been stable postoperatively. He is ambulating and on regular diet, now havin loose BM and flatus. - Current Medication List Current Medications: Active Medications Artificial Tears (Artificial Tears) 1 drop OU BID PRN PRN Reason: DRY EYES Heparin Sodium (Porcine) (Heparin -) 5,000 unit SQ TID [facility] Last Admin: 02/20/18 06:22 Dose: 5,000 unit Morphine Sulfate (Morphine Injection -) 4 mg IVPUSH Q3H PRN PRN Reason: PAIN LEVEL 6-10 Last Admin: 02/18/18 15:23 Dose: 4 mg Ondansetron HCl (Zofran Injection) 4 mg IVPUSH Q8H PRN PRN Reason: NAUSEA Oxycodone HCl (Roxicodone -) 10 mg PO Q4H PRN PRN Reason: PAIN LEVEL 1-5 Last Admin: 02/20/18 06:42 Dose: 10 mg Pantoprazole Sodium (Protonix Iv) 40 mg IVPUSH DAILY [facility] Last Admin: 02/19/18 11:02 Dose: 40 mg - Objective Vital Signs: Vital Signs Temperature 98.5 F 02/20/18 09:48 Pulse Rate 93 H 02/20/18 09:48 Respiratory Rate 18 02/20/18 09:48 Blood Pressure 130/77 02/20/18 09:48 O2 Sat by Pulse Oximetry (%) 97 02/19/18 22:00 Vital Signs Period Temp Pulse Resp BP Sys/Santizo Pulse Ox Last 24 Hr 97.8 F-99.1 F 84-93 18-20 123-133/70-86 97-97 Constitutional: Yes: Well Nourished, No Distress, Calm Eyes: Yes: Conjunctiva Clear, EOM Intact HENT: Yes: Atraumatic, Normocephalic, Other Neck: Yes: Supple Cardiovascular: Yes: Regular Rate and Rhythm, S1, S2 Respiratory: Yes: Regular, CTA Bilaterally Gastrointestinal: Yes: Normal Bowel Sounds, Soft, Abdomen, Obese, Tenderness ( incisional). No: Distention ...Rectal Exam: Yes: Deferred Genitourinary: No: CVA Tenderness - Left, CVA Tenderness - Right Musculoskeletal: No: Muscle Pain, Muscle Weakness Extremities: No: Cool, Cyanosis Edema: No Peripheral Pulses WNL: Yes Peripheral Pulses: Left Radial: 2+, Right Radial: 2+, Left Doralis Pedis: 2+, Right Dorsalis Pedis: 2+ Integumentary: No: Jaundice, Rash Wound/Incision: Yes: Clean/Dry, Well Approximated, [place] Intact Neurological: Yes: Alert, Oriented Psychiatric: Yes: Alert, Oriented Labs: CBC, BMP 02/20/18 07:20 02/19/18 06:30 INR, PTT INR 1.16 (0.83-1.09) H 02/15/18 06:00 Problem List - Problems (1) Colonic mass Assessment/Plan: 42 yo male with HTN and resolved diverticulitis presented after colonoscopy with near obstructing apple core mass at 50cm from anal verge. he noted that some rectal bleeding started since the colonoscopy. POD#5 s/p Left hemicolectomy and umbilical hernia repair. Out of bed/ Ambulate encourage incentive spirometer shower ad william Discharge planning Code(s): K63.9 - DISEASE OF INTESTINE, UNSPECIFIED (2) Diverticulitis of both large and small intestine with abscess Code(s): K57.40 - DVTRCLI OF BOTH SMALL AND LG INT W PERF AND ABSCS W/O BLEED Qualifiers: Diverticulitis bleeding: without bleeding Qualified Code(s): K57.40 - Diverticulitis of both small and large intestine with perforation and abscess without bleeding (3) HTN (hypertension) Code(s): I10 - ESSENTIAL (PRIMARY) HYPERTENSION Qualifiers: Hypertension type: essential hypertension Qualified Code(s): I10 - Essential (primary) hypertension (4) Rectal bleeding Code(s): K62.5 - HEMORRHAGE OF ANUS AND RECTUM
[2018-02-20] MEDS: PANTOPRAZOLE SODIUM 40 MG VIAL IVPUSH SCH (11:19)
--- NOTE | 2018-02-20 13:00 | DS ---
Physical Exam: SUBJECTIVE: Patient seen and examined OBJECTIVE: Vital Signs Period Temp Pulse Resp BP Sys/Santizo Pulse Ox Last 24 Hr 97.8 F-99.1 F 84-93 18-20 123-133/70-86 97-97 PHYSICAL EXAM GENERAL: The patient is awake, alert, and fully oriented, in no acute distress. HEAD: Normal with no signs of trauma. EYES: PERRL, extraocular movements intact, sclera anicteric, conjunctiva clear. ENT: Ears normal, nares patent, oropharynx clear without exudates, moist mucous membranes. NECK: Trachea midline, full range of motion, supple. LUNGS: Breath sounds equal, clear to auscultation bilaterally, no wheezes, no crackles, no accessory muscle use. HEART: Regular rate and rhythm, S1, S2 without murmur, rub or gallop. ABDOMEN: Soft, nontender, nondistended, normoactive bowel sounds, no guarding, no rebound, no hepatosplenomegaly, no masses. EXTREMITIES: 2+ pulses, warm, well-perfused, no edema. NEUROLOGICAL: Cranial nerves II through XII grossly intact. Normal speech, gait not observed. PSYCH: Normal mood, normal affect. SKIN: Warm, dry, normal turgor, no rashes or lesions noted. LABS Laboratory Results - last 24 hr 02/20/18 07:20 WBC 10.2 H RBC 3.46 L Hgb 10.6 L Hct 31.2 L MCV 90.1 MCH 30.7 MCHC 34.0 RDW 14.5 Plt Count 256 MPV 8.2 Absolute Neuts (auto) 6.1 Neutrophils % 59.4 Lymphocytes % 20.7 Monocytes % 11.5 H Eosinophils % 7.4 H D Basophils % 1.0 Nucleated RBC % 0 HOSPITAL COURSE: Date of Admission:02/14/18 Date of Discharge: 02/20/18 Discharge Summary Reason For Visit: SCREENING Current Active Problems Colonic mass (Acute) Diverticulitis of both large and small intestine with abscess (Acute) HTN (hypertension) (Acute) Rectal bleeding (Acute) Condition: Stable - Instructions Diet, Activity, Other Instructions: You were admitted after you were found to have a mass in your colon on colonoscopy. Biopsy showed adenocarcinoma of the colon (colon cancer). You underwent a left hemicoloectomy (removal of your left colon) on Feb 15, 2018. The pathology from the surgery is pending. You are on a regular diet. Oxycodone 10 mg was prescribed for you to take as needed for pain. You may take 1 tablet every 4 hours (up to 6 tablets per day). The prescription has been sent to [facility]. You should follow up with the surgeon, Dr. Conway, in 2 weeks. You were found to have 2 lesions in your liver and will need to have another MRI to further evaluate these. You were seen by an oncologist, Dr. Yamila Santo, and you should also schedule an appointment to see her in 1 week. Referrals: Jerrod Conway MD [Staff Physician] - 2 Weeks Yamila Santo MD [Staff Physician] - 1 Week Giorgi Hoover [Primary Care Provider] - Disposition: HOME - Home Medications Comprehensive Discharge Medication List: Ambulatory Orders NK [No Known Home Medication] 02/13/18 - Discharge Referral Referred to [facility] No
--- NOTE | 2018-02-23 10:23 | OP ---
DATE OF OPERATION: 02/15/2018 PREOPERATIVE DIAGNOSIS: Left colon mass and umbilical hernia. POSTOPERATIVE DIAGNOSIS: Left colon mass and umbilical hernia. PROCEDURE: Left hemicolectomy, umbilical hernia repair. ATTENDING SURGEON: Jerrod Conway MD GRADES 9 THROUGH 12 TEACHER: Mat Zazueta MD ANESTHESIOLOGIST: Raymundo Hudson MD ANESTHESIA TYPE: General. SPECIMEN: Hernia sac, left colon with blue Prolene that gordon the distal margin. INTRAVENOUS FLUID ADMINISTERED: Crystalloid, 4500 mL. ESTIMATED BLOOD LOSS: 150 mL. DRAIN: Polk is the drain that was left remining. He made 700 mL of urine during the case, which was clear. BRIEF FINDINGS: Patient had a large palpable concentric mass that was inked at the serosal margin both proximally and distally located at the splenic flexure. The surgical margins appeared normal with no sign of metastatic disease intraabdominally. An anatomic left hemicolectomy was performed with a stapled [id number] anastomosis of the transverse and distal sigmoid colon. The umbilical hernia was incarcerated omental fat, and it was primarily repaired. All counts were correct at the conclusion of the case. INDICATIONS: Patient is a 42-year-old male with no significant past medical history who presented after a bout of diverticulitis, which appeared to be perforated with associated abscess approximately a month earlier. He was in for a followup colonoscopy, which revealed a concentric colon mass at the splenic flexure 50 cm from the anal verge. This was inked, and we were called in consultation. Biopsy was sent at the time, and an additional polyp was taken. He was counseled regarding risks, benefits, and alternatives to surgical resection given the likelihood of malignancy, signed informed consent, and was taken for the procedure. DESCRIPTION OF PROCEDURE: The patient was brought to the operating room. He was placed in supine position on the operating table with bilateral arms extended 90 degrees perpendicular to the bodys axis. Lower extremities had SCDs placed. He was induced with general anesthesia, endotracheally intubated without incident by Anesthesia. At which point, he was moved carefully into the lithotomy position. All bony prominences were bolstered and protected. The anterior abdominal wall was clipped, prepped, and draped in standard sterile fashion. The perineal area was also prepped into the surgical field, and the patient, after sterile prep and drape, had a formal time-out identifying the operative procedure as a left hemicolectomy. With all parties in agreement, we began first with a midline entry into the abdomen. The midline was opened with the 10-blade scalpel, deepened and widened through subcutaneous tissues through the fat pannus to the anterior midline rectus sheath, which was opened, and then, when elevated, the preperitoneum was elevated with tonsil clamps and entered bluntly. After the abdominal viscera was protected in the abdomen, the remainder of the midline wound was opened. At which point, by eviscerating the patient with the small intestine and omentum and then exploring the left colon, the left colon was palpated along Toldts line until we could palpate at the splenic flexure high and near the Traube space at the inferior pole of the spleen disconcentric mass. Care was then taken to start a left hemicolectomy by mobilizing the line of Toldt in the left lateral aspect of the colon towards the midline. This was proceeded from the sigmoid colon, and the left sigmoidal branch all the way up through and around the splenic flexure to the mid transverse and the middle colic, the left branch of the middle colic was identified in the mesentery. This dissection of the colon was difficult and required additional extension of the midline wound. However, we were able to protect all anatomic structures, spleen, kidney, as well as the ureters away from surgical injury as we dissected the left side of the colon towards the midline. Once reflected, space was selected in the mid transverse colon for transection, which allowed for a margin of approximately 10 cm from the palpable mass as well as distally approximately 12 cm from the sigmoid blood supply, performing a complete anatomic left sigmoid colectomy. This colon was then transected using a RYAN 80 in 2 locations, after transecting the colon, it was then taken from its mesentery deep on the mesentery using LigaSure device and tying of the large vascular bundles where appropriate using 0 silk ties. After completing this anatomic resection, the remainder of the abdomen was then explored. The liver appeared normal. The omentum had no implants. No lesions could be identified which would be consistent with metastatic disease. The exposed spleen and kidney also appeared normal without additional lesions. The adjacent small bowel was run in its entirety from the ligament of Treitz all the way to the ileocecal valve which appeared normal. The left side of the colon as well as the sigmoid and rectum appeared uninvolved in the process. The gallbladder also appeared jaden-egg blue without adjacent lesions. The cut ends of colon were then approximated, and it was clear that there would be ample space to do a kxip-xw-uahb stapled anastomosis. We proceeded by approximating the ends of the sigmoid and the transverse colon using 3-0 silk in interrupted fashion for a crotch repair to relieve the tension from the stapled anastomosis. Small colotomies were then made, and a common channel was created between the 2 lumens of colon using an 80 RYAN, at which point an additional TA 60 was used to close the defect in the colon, and a stapled anastomosis was completed. At which point, the remainder of the omentum, which was taken en bloc with the left side of the colon, remained after the en bloc resection of the colon, was wrapped around the anastomosis and tacked in 2 places using 3-0 silk. The common lumen was appreciated to be approximately 4 cm in length. After the anastomosis, the entire abdomen was washed with a liter of sterile irrigation fluid. Care was taken to note the blood loss and amount of urine and its quality which appeared yellow and clear. We proceeded then with closure of the abdominal midline defect. In the course of this, and umbilical hernia was noted and created a fascial defect with the midline. Looped PDS was used to approximate the midline fascia. The skin was then closed with michael. The patient was awoken from anesthesia after a sterile dressing was placed. He tolerated the procedure well. All counts were correct. MD TUYET Ruano/[id number]
--- NOTE | 2018-02-27 13:55 | PATH ---
Surgical Pathology Report Patient Name: KAUSHIK GARLAND [facility]. Rec. #: [id number] /Age/Gender: 1975 (Age: 42) / M Account: [id number] Location: [address] [place] [address]/[facility] Taken: 02/15/2018 Received: 02/18/2018 Reported: 02/27/2018 Physicians: John Ruano M.D. Specimen(s) Received A: SPLENIC FLEXURE OF COLON WITH PORTION OF TRANSVERSE AND DESCENDING COLON B: UMBILICAL HERNIA SAC Clinical History Splenic flexure mass and umbilical hernia Final Diagnosis A. 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 TUMOR INVADES THROUGH THE MUSCULARIS PROPRIA INTO PERICOLONIC ADIPOSE TISSUE. NO PERFORATION IS IDENTIFIED. ALL MARGINS ARE UNINVOLVED BY INVASIVE CARCINOMA. SIX OUT OF TWENTY LYMPH NODES, POSITIVE FOR METASTATIC CARCINOMA (6/20). LYMPHOVASCULAR INVASION IDENTIFIED. PERINEURAL INVASION IDENTIFIED. PATHOLOGIC STAGE (pTNM): pT3 pN2a ALSO SEE COLORECTAL CANCER CASE SUMMARY BELOW. B. UMBILICAL HERNIA SAC, EXCISION: FIBROADIPOSE TISSUE CONSISTENT WITH HERNIA SAC. Comments Colorectal Carcinoma :Surgical Pathology Cancer Case Summary (Based on AJCC TNM 8 th edition) Procedure _x_ Left hemicolectomy Tumor Site _x_ Splenic flexure Tumor Size Greatest dimension (centimeters): 5.3 cm Macroscopic Tumor Perforation _x_ Not identified Histologic Type _x_ Mucinous adenocarcinoma Histologic Grade _x_ G2: Moderately differentiated Tumor Extension _x_ Tumor invades through the muscularis propria into pericolorectal tissue Margins _x_ All margins are uninvolved by invasive carcinoma, high-grade dysplasia, intramucosal adenocarcinoma, and adenoma Margins examined: proximal margin, distal margin, radial margin Treatment Effect _x_ No known presurgical therapy Lymphovascular Invasion _x_ Present _x_ Small vessel lymphovascular invasion Perineural Invasion _x_ Present Tumor Deposits _x_ Not identified Regional Lymph Nodes Lymph Node Examination Number of Lymph Nodes Involved: 6 Number of Lymph Nodes Examined: 20 Pathologic Stage Classification (pTNM, AJCC 8th Edition) Primary Tumor (pT) _x_ pT3: Tumor invades through the muscularis propria into pericolorectal tissues Regional Lymph Nodes (pN) _x_ pN2a: Four to six regional lymph nodes are positive COMMENT: Immunohistochemical stained slides (A4, A7, A20, A22) demonstrate tumor cells invading into the pericolonic fatty tissue, no evidence of microperforation to the serosal surface. Immunohistochemistry stains AE1/AE3 performed and interpreted at [facility]. Positive and negative controls (internal if applicable) show appropriate results. Colorectal biomarkers: Immunohistochemical stains for mismatch repair protein analysis performed at [place], [place] ([id number]) and interpreted at [facility] show the following: MLH1 Intactnuclear expression MSH2 Intact nuclear expression MSH6 Intact nuclear expression PMS2 Intact nuclear expression IHC Interpretation _x_ No loss of nuclear expression of MMR proteins: low probability of microsatellite instability-high(MSI-H)# Electronically Signed Amelia Camarena M.D. Gross Description A. Specimen received in formalin labeled "splenic flexure of colon with portion of transverse and descending colon, stitch gordon distal" and consists of a segment colon measures 47.5cm in length and 9 cm in average circumference. On opening, the colon reveals a central ulcerated mass. The mass measures 5.3 x 3.8 (length, width). The tumor is located at 13cm to the distal margin, 2cm to radial margin. Grossly all margins are negative for tumor. No perforation seen grossly. On sectioning the tumor is jovel white firm and measures 1.5 cm in greatest thickness. It appears to involve the entire thickness of the bowel wall into the pericolonic fatty tissue. The rest of the non-neoplastic bowel mucosa is unremarkable. No other mass seen. Lymph nodes are isolated in the mesenteric adipose tissue, the largest measures 1.2cm in greatest dimension. Lock Tender sections and all the lymph nodes isolated are submitted in 28 cassettes. 1-proximal margin, 2-distal margin,3-radial margin, 4 to 6- tumor the deepest invasion,7- nodular area adjacent to tumor, 8-three lymph nodes,9-three lymph nodes,10 to 13-three possible lymph nodes in each cassette, 14- two lymph nodes, bisected, 15- multiple nodular area, possible lymph nodes, 16 to 28- the rest of the tumor and non-neoplastic area. B. Received in formalin labeled "umbilical hernia sac" is a fibromembranous and fibroadipose soft tissue consistent with hernia sac measuring 2 x 1 x 0.7 cm. Entire specimen is submitted in one cassette. MLSZ/02/18/2018 sanml/02/18/2018
== END 2018-02-20 14:26 | disposition home or self-care (01) | DRG 330 ==
LOC: JASU-ENDO 08:29 → JSAMEDAYSX 10:11 → J8W 17:55 → JICU 02-15 20:11 → J6S 02-18 18:37
PROVIDERS: ADMIT Internal Medicine Gastroenterology; ATTEND Internal Medicine
PROC: 0DBM8ZX Excision of Descending Colon, Via Natural or Artificial Opening Endoscopic, Diagnostic (ICD-10-PCS; 2018-02-14)
PROC: 0DBN8ZX Excision of Sigmoid Colon, Via Natural or Artificial Opening Endoscopic, Diagnostic (ICD-10-PCS; 2018-02-14)
PROC: 0DBC8ZX Excision of Ileocecal Valve, Via Natural or Artificial Opening Endoscopic, Diagnostic (ICD-10-PCS; 2018-02-14)
PROC: 0DTG0ZZ Resection of Left Large Intestine, Open Approach (ICD-10-PCS; 2018-02-15)
PROC: 0WQF0ZZ Repair Abdominal Wall, Open Approach (ICD-10-PCS; principal; 2018-02-15 12:30)
DX: C18.6 Malignant neoplasm of descending colon (principal); K57.40 Diverticulitis of both small and large intestine with perforation and abscess without bleeding; K62.5 Hemorrhage of anus and rectum; K42.0 Umbilical hernia with obstruction, without gangrene; I10 Essential (primary) hypertension; E66.9 Obesity, unspecified; Z68.34 Body mass index [BMI] 34.0-34.9, adult; K76.9 Liver disease, unspecified; R91.1 Solitary pulmonary nodule; Z87.891 Personal history of nicotine dependence; F40.240 Claustrophobia; K76.89 Other specified diseases of liver
CPT/HCPCS: 36415; 71260-TC; 74177-TC; 74181-TC; 80048; 80053; 82248; 82378; 82962; 83735; 84100; 85025; 85027; 85610; 85730; 86850; 86900; 86901; 86922; 88302-TC; 88305-TC; 88307-TC; 88341-TC; 94760; 97116-GP; 97161-GP; J0131; J1644

== ENCOUNTER 2018-03-07 12:03 | Emergency (ER) | payer BC ==
[2018-03-07 12:22] VITALS: BP 125/78; PULSE 84; TEMP 99.3; BMI 28.7
--- NOTE | 2018-03-07 12:59 | PDOC ---
Suture Removal/Wound Check HPI - History of Present Illness Chief Complaint: Suture/Staple Removal (other) Stated Complaint: SUTURE/STAPLE REMOVAL Time Seen by Provider: 03/07/18 12:39 History Source: Yes: Patient Exam Limitations: Yes: No Limitations - Previous ED Treatment Type of procedure performed on last visit: Yes: Other (bowel resection) - Onset of Previous Treatment Date of Occurence: 02/14/18 Past History - Past Medical History Allergies/Adverse Reactions: Allergies Allergy/AdvReac Type Severity Reaction Status Date / Time No Known Allergies Allergy Verified 03/07/18 12:18 Home Medications: Ambulatory Orders Oxycodone HCl 10 mg PO Q4H PRN #30 tablet MDD 6 tabs 02/20/18 Anemia: No Asthma: No Cancer: Yes (? colon) Cardiac Disorders: No CVA: No COPD: No CHF: No Dementia: No Diabetes: No GI Disorders: No Disorders: No HTN: Yes Hypercholesterolemia: No Liver Disease: No Seizures: No Thyroid Disease: No - Surgical History Abdominal Surgery: Yes (intestinal tumor) Appendectomy: No Cardiac Surgery: No Cholecystectomy: No Lung Surgery: No Neurologic Surgery: No Orthopedic Surgery: No - Immunization History Immunization Up to Date: Yes - Suicide/Smoking/Psychosocial Hx Smoking Status: No Smoking History: Never smoked Have you smoked in the past 12 months: No Number of Cigarettes Smoked Daily: 0 If you are a former smoker, when did you quit?: 2000 Cigars Per Day: 0 Information on smoking cessation initiated: No Hx Alcohol Use: No Drug/Substance Use Hx: No Substance Use Type: None Hx Substance Use Treatment: No Suture Removal/Wound Check PE - Physical Exam Laceration/Wound Check Symptoms: reports: None Current Severity Level: None Maximum Severity Level: None Pain Localization: None Location of Laceration/Wound: bilateral: Abdomen (midline) *Review of Systems - Review of Systems Able to Perform ROS?: Yes Constitutional: No: Symptoms Reported HEENTM: No: Symptoms Reported Respiratory: No: Symptoms reported Cardiac (ROS): No: Symptoms Reported ABD/GI: No: Symptoms Reported : No: Symptoms Reported Musculoskeletal: No: Symptoms Reported Integumentary: Yes: See HPI Neurological: No: Symptoms reported Endocrine: No: Symptoms Reported Hematologic/Lymphatic: No: Symptoms Reported *Physical Exam - Vital Signs Last Vital Signs Temp Pulse Resp BP Pulse Ox 99.3 F 84 18 125/78 99 03/07/18 12:19 03/07/18 12:19 03/07/18 12:19 03/07/18 12:19 03/07/18 12:19 - Physical Exam General Appearance: Yes: Appropriately Dressed. No: Apparent Distress Respiratory/Chest: positive: Lungs Clear, Normal Breath Sounds. negative: Respiratory Distress, Accessory Muscle Use Cardiovascular: positive: Regular Rhythm, Regular Rate. negative: Murmur Gastrointestinal/Abdominal: positive: Normal Bowel Sounds, Soft. negative: Tender Integumentary: positive: Other (Midline surgical michael in place. Wound edges well approximated and healing appropriately. No erythema, discharge or drainage present.) Neurologic: positive: Alert, Normal Response Medical Decision Making - Medical Decision Making 03/07/18 12:56 A/P: 42-year-old male here to have postop surgical michael removed Michael midline abdomen extending around the right side of the umbilicus to the suprapubic region No wound dehiscence present No erythema, discharge or drainage present Wound appears well healed Abdominal exam is within normal limits Case discussed with Dr. Conway who states patient missed his scheduled postop appointment. Dr. Conway states the patient can call his office make an appointment for Sunday, March 13 for reevaluation and suture removal at that time. I will discharge the patient home to follow-up with Dr. Conway on March 13. *DC/Admit/Observation/Transfer Diagnosis at time of Disposition: Visit for wound check - Discharge Dispostion Disposition: HOME Condition at time of disposition: Stable Decision to Admit order: No - Referrals Referrals: Jerrod Conway MD [Staff Physician] - - Patient Instructions Additional Instructions: Call Dr. Conway' office for appointment on March 13. Dr. Conway sees his postop patients in his office every Sunday if he cannot secure an appointment 17 try for March 20. Return to emergency department for any concerns. - Post Discharge Activity
== END 2018-03-07 13:05 | disposition home or self-care (01) ==
LOC: JERFT 12:03 → JER 12:03 → JERFT 13:05
DX: Z48.01 Encounter for change or removal of surgical wound dressing (principal)
CPT/HCPCS: 99281-25

== ENCOUNTER 2018-07-12 07:04 | Day surgery (SDC) | payer BC ==
[2018-07-12] MEDS ORDERED: PALONOSETRON HCL 0.25 MG/5 ML VIAL IVPUSH ONE (10:00)
[2018-07-12] MEDS ORDERED: DEXAMETHASONE SODIUM PHOSPHATE 20 MG in SODIUM CHLORIDE 50 ML IVPB ONE (10:00)
[2018-07-12] MEDS ORDERED: OXALIPLATIN IV ONE (10:30)
[2018-07-12] MEDS ORDERED: WATER IV ONE (10:30)
[2018-07-12] MEDS ORDERED: DEXTROSE 5% IV ONE (10:30)
[2018-07-12 10:34] VITALS: TEMP 98.4
[2018-07-12 11:08] LABS: BASO % 0.5 % (0-2.0); EOS % 3.9 % (0-4.5); HEMATOCRIT 46.4 % (35.4-49); HEMOGLOBIN 15.9 GM/dL (11.7-16.9); LYMPH % 32.7 % (8-40); MCH 29.4 pg (25.7-33.7); MCHC 34.2 g/dl (32.0-35.9); MEAN CELL VOLUME 85.9 fl (80-96); MEAN PLT VOLUME 8.4 fl (7.5-11.1); MONO % 10.2 % (3.8-10.2); NEUT % 52.7 % (42.8-82.8); PLATELET COUNT 276 K/MM3 (134-434); RBC 5.41 M/mm3 (4.00-5.60); RDW 16.3 % (11.9-15.9)
[2018-07-12 11:33] LABS: ALBUMIN 3.8 g/dl (3.4-5.0); BILIRUBIN,DIRECT 0.1 mg/dL (0.0-0.2); BILIRUBIN,TOTAL 0.5 mg/dL (0.2-1); MAGNESIUM 2.3 mg/dL (1.8-2.4); TOT PROT 7.8 g/dl (6.4-8.2)
[2018-07-12 11:36] LABS: ALBUMIN 3.8 g/dl (3.4-5.0); ALK PHOS 60 U/L (45-117); ANION GAP 5 MMOL/L (8-16); BILIRUBIN,TOTAL 0.5 mg/dL (0.2-1); BLOOD UREA NITROGEN 12 mg/dL (7-18); CHLORIDE 106 mmol/L (98-107); CO2 29 mmol/L (21-32); CREATININE 0.9 mg/dL (0.55-1.3); GLUCOSE,RANDOM 105 mg/dL (74-106); POTASSIUM 3.8 mmol/L (3.5-5.1); SGOT/AST 37 U/L (15-37); SGPT/ALT 78 U/L (13-61); SODIUM 140 mmol/L (136-145); TOT PROT 7.9 g/dl (6.4-8.2)
[2018-07-12] MEDS ORDERED: SODIUM CHLORIDE 500 ML IV STA (12:22)
[2018-07-12] MEDS ORDERED: ACETAMINOPHEN 325 MG TABLET (FP) PO ONE (12:24)
[2018-07-12 19:19] VITALS: BP 145/95; PULSE 90
== END 2018-07-12 17:00 | disposition home or self-care (01) ==
LOC: JONCCHEMO 07:04 → J7W 12:10 → JONCCHEMO 17:00
PROVIDERS: ATTEND Internal Medicine Hematology & Oncology
DX: Z51.11 Encounter for antineoplastic chemotherapy (principal); C18.9 Malignant neoplasm of colon, unspecified
CPT/HCPCS: 36415; 80053; 80076; 83735; 85025; 96361; 96367; 96375; 96413; 96415; J2469; J7030; J9263

== ENCOUNTER 2018-08-02 07:03 | Day surgery (SDC) | payer BC ==
[2018-08-02] MEDS ORDERED: PALONOSETRON HCL 0.25 MG/5 ML VIAL IVPUSH ONE (08:00)
[2018-08-02] MEDS ORDERED: DEXAMETHASONE SODIUM PHOSPHATE 20 MG in SODIUM CHLORIDE 50 ML IVPB ONE (08:00)
[2018-08-02] MEDS ORDERED: OXALIPLATIN IV ONE (08:30)
[2018-08-02] MEDS ORDERED: WATER IV ONE (08:30)
[2018-08-02] MEDS ORDERED: DEXTROSE 5% IV ONE (08:30)
[2018-08-02 11:51] LABS: EOS % 2.7 % (0-4.5); HEMOGLOBIN 15.2 GM/dL (11.7-16.9); MCHC 34.5 g/dl (32.0-35.9); MEAN CELL VOLUME 86.7 fl (80-96); MEAN PLT VOLUME 8.1 fl (7.5-11.1); MONO % 14.1 % (3.8-10.2); NEUT % 46.2 % (42.8-82.8); PLATELET COUNT 260 K/MM3 (134-434); RBC 5.07 M/mm3 (4.00-5.60); RDW 17.1 % (11.9-15.9)
[2018-08-02 12:22] LABS: ALBUMIN 3.7 g/dl (3.4-5.0); ALK PHOS 66 U/L (45-117); ANION GAP 4 MMOL/L (8-16); BILIRUBIN,DIRECT 0.1 mg/dL (0.0-0.2); BILIRUBIN,TOTAL 0.6 mg/dL (0.2-1); BLOOD UREA NITROGEN 12 mg/dL (7-18); CALCIUM 8.7 mg/dL (8.5-10.1); CHLORIDE 107 mmol/L (98-107); CO2 28 mmol/L (21-32); CREATININE 1.1 mg/dL (0.55-1.3); GLUCOSE,RANDOM 95 mg/dL (74-106); MAGNESIUM 2.3 mg/dL (1.8-2.4); POTASSIUM 3.8 mmol/L (3.5-5.1); SGOT/AST 13 U/L (15-37); SGPT/ALT 89 U/L (13-61); SODIUM 139 mmol/L (136-145); TOT PROT 7.6 g/dl (6.4-8.2); TOT PROT 8.5 g/dl (6.4-8.2)
[2018-08-02] MEDS ORDERED: amLODIPine BESYLATE 5 MG TABLET (FP) PO PRN (14:14)
[2018-08-02 15:35] VITALS: BP 146/95; PULSE 84; TEMP 97.7
== END 2018-08-02 15:15 | disposition home or self-care (01) ==
LOC: JONCCHEMO 07:03 → J7W 12:24 → JONCCHEMO 15:15
PROVIDERS: ATTEND Internal Medicine Hematology & Oncology
PROC: 3E033GC Introduction of Other Therapeutic Substance into Peripheral Vein, Percutaneous Approach (ICD-10-PCS; principal; 2018-08-02)
DX: C18.9 Malignant neoplasm of colon, unspecified (principal); Z76.89 Persons encountering health services in other specified circumstances
CPT/HCPCS: 36415; 80053; 80076; 83735; 85025; 96374; 96375; J2469; J9263

== ENCOUNTER 2018-08-23 07:32 | Day surgery (SDC) | payer BC ==
[2018-08-23] MEDS ORDERED: PALONOSETRON HCL 0.25 MG/5 ML VIAL IVPUSH ONE (10:00)
[2018-08-23] MEDS ORDERED: DEXAMETHASONE SODIUM PHOSPHATE 20 MG in SODIUM CHLORIDE 50 ML IVPB ONE (10:00)
[2018-08-23] MEDS ORDERED: DEXTROSE 5% IV ONE (10:30)
[2018-08-23] MEDS ORDERED: OXALIPLATIN IV ONE (10:30)
[2018-08-23] MEDS ORDERED: WATER IV ONE (10:30)
[2018-08-23 12:01] LABS: BASO % 0.6 % (0-2.0); EOS % 2.6 % (0-4.5); HEMATOCRIT 43.7 % (35.4-49); HEMOGLOBIN 14.4 GM/dL (11.7-16.9); LYMPH % 32.2 % (8-40); MCHC 32.8 g/dl (32.0-35.9); MEAN CELL VOLUME 88.4 fl (80-96); MEAN PLT VOLUME 8.1 fl (7.5-11.1); MONO % 16.5 % (3.8-10.2); NEUT % 48.1 % (42.8-82.8); PLATELET COUNT 239 K/MM3 (134-434); RBC 4.94 M/mm3 (4.00-5.60); RDW 20.3 % (11.9-15.9); WHITE BLOOD COUNT 5.9 K/mm3 (4.0-10.0)
[2018-08-23 12:34] LABS: ALBUMIN 3.9 g/dl (3.4-5.0); ALK PHOS 58 U/L (45-117); ANION GAP 8 MMOL/L (8-16); BILIRUBIN,TOTAL 0.6 mg/dL (0.2-1); BLOOD UREA NITROGEN 13 mg/dL (7-18); CALCIUM 8.9 mg/dL (8.5-10.1); CHLORIDE 107 mmol/L (98-107); CO2 27 mmol/L (21-32); GLUCOSE,RANDOM 87 mg/dL (74-106); POTASSIUM 3.8 mmol/L (3.5-5.1); SGOT/AST 45 U/L (15-37); SGPT/ALT 76 U/L (13-61); SODIUM 143 mmol/L (136-145); TOT PROT 7.4 g/dl (6.4-8.2)
[2018-08-23 12:36] LABS: BILIRUBIN,DIRECT 0.2 mg/dL (0.0-0.2); BILIRUBIN,TOTAL 0.6 mg/dL (0.2-1); MAGNESIUM 2.1 mg/dL (1.8-2.4); TOT PROT 7.5 g/dl (6.4-8.2)
[2018-08-23 16:15] VITALS: TEMP 98.2
[2018-08-23 16:55] VITALS: BP 130/85; PULSE 75
== END 2018-08-23 17:00 | disposition home or self-care (01) ==
LOC: JONCCHEMO 07:32 → J7W 13:27 → JONCCHEMO 08-24 09:00
PROVIDERS: ATTEND Internal Medicine Hematology & Oncology
DX: Z51.11 Encounter for antineoplastic chemotherapy (principal); C18.9 Malignant neoplasm of colon, unspecified
CPT/HCPCS: 36415; 80053; 80076; 83735; 85025; 96367; 96375; 96413; 96415; J2469; J9263

== ENCOUNTER 2018-08-25 20:42 | Emergency (ER) | payer BC ==
[2018-08-25 21:12] VITALS: BP 145/84; PULSE 75; TEMP 98.3; BMI 30.8
--- NOTE | 2018-08-25 21:52 | PDOC ---
History of Present Illness - History of Present Illness Initial Comments: 08/25/18 22:19 The patient is a 43 year old male, with a significant past medical history of colon cancer (s/p resection, chemo every 21 days last dosage 08/23), who presents to the emergency department with, 3 days of worsening pain and swelling to the right arm. As per patient, his pain and swelling onset after receiving chemo infusion to his right hand he describes his pain as initiating at his right hand and radiating upward to his right elbow, prompting his arrival to the ED. He denies any recent fevers, chills, headache or dizziness. He denies any recent nausea, vomit, diarrhea or constipation. He denies any recent chest pain or shortness of breath. He denies any recent dysuria, frequency, urgency or hematuria. Allergies: NKDA Heme/Onc: Dr. Driscoll <Yasmin Lockwood - Last Filed: 08/25/18 23:47> - General History Source: Patient Exam Limitations: No Limitations <Nia Walton - Last Filed: 08/26/18 00:28> - General Chief Complaint: Pain Stated Complaint: PAIN Time Seen by Provider: 08/25/18 21:44 Past History <Yasmin Lockwood - Last Filed: 08/25/18 23:47> - Past Medical History Anemia: No Asthma: No Cancer: Yes (colon) Cardiac Disorders: No CVA: No COPD: No CHF: No Dementia: No Diabetes: No GI Disorders: No Disorders: No HTN: Yes Hypercholesterolemia: No Liver Disease: No Seizures: No Thyroid Disease: No - Surgical History Abdominal Surgery: Yes (Colon resection) Appendectomy: No Cardiac Surgery: No Cholecystectomy: No Lung Surgery: No Neurologic Surgery: No Orthopedic Surgery: No - Immunization History Immunization Up to Date: Yes - Suicide/Smoking/Psychosocial Hx Smoking Status: No Smoking History: Never smoked Have you smoked in the past 12 months: No Number of Cigarettes Smoked Daily: 0 If you are a former smoker, when did you quit?: 2001 Cigars Per Day: 0 Information on smoking cessation initiated: No Hx Alcohol Use: No Drug/Substance Use Hx: No Substance Use Type: None Hx Substance Use Treatment: No <Nia Walton - Last Filed: 08/26/18 00:28> - Past Medical History Allergies/Adverse Reactions: Allergies Allergy/AdvReac Type Severity Reaction Status Date / Time No Known Allergies Allergy Verified 08/25/18 21:09 Review of Systems - Review of Systems Able to Perform ROS?: Yes Comments:: 08/25/18 22:20 GENERAL/CONSTITUTIONAL: No fever or chills. No weakness. HEAD, EYES, EARS, NOSE AND THROAT: No change in vision. No ear pain or discharge. No sore throat. CARDIOVASCULAR: No chest pain or shortness of breath. RESPIRATORY: No cough, wheezing, or hemoptysis. GASTROINTESTINAL: No nausea, vomiting, diarrhea or constipation. GENITOURINARY: No dysuria, frequency, or change in urination. MUSCULOSKELETAL:+Swelling and pain to the right wrist radiating up to the right elbow. No neck or back pain. SKIN: No rash NEUROLOGIC: No headache, vertigo, loss of consciousness, or change in strength/ sensation. ENDOCRINE: No increased thirst. No abnormal weight change. HEMATOLOGIC/LYMPHATIC: No anemia, easy bleeding, or history of blood clots. ALLERGIC/IMMUNOLOGIC: No hives or skin allergy. <Yasmin Lockwood - Last Filed: 08/25/18 23:47> *Physical Exam - Vital Signs Last Vital Signs Temp Pulse Resp BP Pulse Ox 98.3 F 75 18 145/84 99 08/25/18 21:10 08/25/18 21:10 08/25/18 21:10 08/25/18 21:10 08/25/18 21:10 - Physical Exam Comments: 08/25/18 22:22 GENERAL: Awake, alert, and fully oriented, in no acute distress HEAD: No signs of trauma EYES: PERRLA, EOMI, sclera anicteric, conjunctiva clear ENT: Auricles normal inspection, hearing grossly normal, nares patent. Moist mucosa NECK: Normal ROM, supple, no lymphadenopathy, JVD, or masses LUNGS: Breath sounds equal, clear to auscultation bilaterally. No wheezes, and no crackles HEART: Regular rate and rhythm, normal S1 and S2, no murmurs, rubs or gallops ABDOMEN: Soft, nontender, normoactive bowel sounds. No guarding, no rebound. No masses EXTREMITIES: 2+ radial and ulnar pulses. +Small, minimal indentation from prior bracelet noted. Normal range of motion, no edema. No erythema or tenderness. DP/ PT pulses 2+ and symmetric. Warm and well perfused. NEUROLOGICAL: Moves all extremities. Normal speech. SKIN: Warm, Dry, normal turgor, no rashes or lesions noted. <Yasmin Lockwood - Last Filed: 08/25/18 23:47> - Vital Signs Last Vital Signs Temp Pulse Resp BP Pulse Ox 98.3 F 75 18 145/84 99 08/25/18 21:10 08/25/18 21:10 08/25/18 21:10 08/25/18 21:10 08/25/18 21:10 <Nia Walton - Last Filed: 08/26/18 00:28> ED Treatment Course - LABORATORY CBC & Chemistry Diagram: 08/25/18 22:20 08/25/18 22:27 <Yasmin Lockwood - Last Filed: 08/25/18 23:47> - LABORATORY CBC & Chemistry Diagram: 08/25/18 22:20 08/25/18 22:27 <Nia Walton - Last Filed: 08/26/18 00:28> Medical Decision Making - Medical Decision Making Call placed to Dr. Driscoll's answering service, patient's oncologist, case was discussed with Dr. Oshea (covering physician). EXAM: Ultrasound DUPLEX VASCULAR US-1 ARM HISTORY: Arm swelling COMPARISON: None. FINDINGS: Ultrasound of right upper extremity veins demonstrates normal compression flow and augmentation IMPRESSION: No deep vein thrombosis or superficial vein thrombosis Read by: Myles Ceron MD <Yasmin Lockwood - Last Filed: 08/25/18 23:47> - Medical Decision Making 08/25/18 21:50 43 yo male h/o colon ca s/p resection currently undergoing chemo , recently had 3 days ago in his right arm, c/o right arm swelling and pain. noted his bracelet was indenting on his arm. no cp no sob. no h/o pe or dvt. no f/c no other comlaints. no trauma. on exam mild right arm swelling, only noted by bracelet mendez. no warmth. no erythema. 2 + radial/ ulnar pulses. differential early cellulitis although min sx on exam. upper ext dvt. plan us right upper ext. will d/w dr driscoll. labs. 08/26/18 00:26 pt dvt study negative. labs unremarkable. d/w covering doctor for dr driscoll. pt will fu early next week. give copies of all results <Nia Walton - Last Filed: 08/26/18 00:28> *DC/Admit/Observation/Transfer - Attestations Scribe Attestion: 08/25/18 22:21 Documentation prepared by Yasmin Lockwood, acting as caregivers non medical for Nia Walton MD. <Yasmin Lockwood - Last Filed: 08/25/18 23:47> - Discharge Dispostion Decision to Admit order: No <Nia Walton - Last Filed: 08/26/18 00:28> Diagnosis at time of Disposition: Arm pain - Discharge Dispostion Disposition: HOME - Patient Instructions Printed Discharge Instructions: DI for Arm Pain Additional Instructions: take motrin 600 mg every 8 hrs as needed for pain. you should follow up with dr Driscoll tomorrow or sunday. call to arrange appoitnment. your labs are normal except mild elevation of liver enzymes which is consistent with prior test. please follow up with dr driscoll as well. your ultrasound of your arm is negative. for blood clot. for chest pain, shortness of breath, fever or chills or any concerns. return for evaluation.
[2018-08-25 22:32] LABS: BASO % 0.8 % (0-2.0); EOS % 1.7 % (0-4.5); HEMATOCRIT 41.8 % (35.4-49); HEMOGLOBIN 14.1 GM/dL (11.7-16.9); LYMPH % 39.4 % (8-40); MCH 30.4 pg (25.7-33.7); MCHC 33.8 g/dl (32.0-35.9); MEAN PLT VOLUME 7.6 fl (7.5-11.1); MONO % 14.6 % (3.8-10.2); NEUT % 43.5 % (42.8-82.8); PLATELET COUNT 226 K/MM3 (134-434); RBC 4.64 M/mm3 (4.00-5.60); RDW 22.2 % (11.9-15.9); WHITE BLOOD COUNT 5.1 K/mm3 (4.0-10.0)
[2018-08-25] MEDS ORDERED: IBUPROFEN 600 MG TABLET (FP) PO ONE ×2 (22:36→22:42)
[2018-08-25 22:56] LABS: ALBUMIN 3.5 g/dl (3.4-5.0); ALK PHOS 53 U/L (45-117); ANION GAP 6 MMOL/L (8-16); BILIRUBIN,TOTAL 0.4 mg/dL (0.2-1); BLOOD UREA NITROGEN 15 mg/dL (7-18); CALCIUM 8.4 mg/dL (8.5-10.1); CHLORIDE 108 mmol/L (98-107); CO2 26 mmol/L (21-32); CREATININE 0.9 mg/dL (0.55-1.3); GLUCOSE,RANDOM 145 mg/dL (74-106); POTASSIUM 3.9 mmol/L (3.5-5.1); SGOT/AST 53 U/L (15-37); SGPT/ALT 85 U/L (13-61); SODIUM 140 mmol/L (136-145); TOT PROT 6.9 g/dl (6.4-8.2)
[2018-08-25 23:42] LABS: ANISOCYTOSIS 3+; MACROCYTOSIS 1+; PLATELET ESTIMATE ADEQUATE
== END 2018-08-26 00:37 | disposition home or self-care (01) ==
LOC: JER 20:42
DX: M79.601 Pain in right arm (principal); Z85.038 Personal history of other malignant neoplasm of large intestine; I10 Essential (primary) hypertension
CPT/HCPCS: 36415; 80053; 85025; 87040; 93971; 99281-25

== ENCOUNTER 2018-09-13 07:03 | Day surgery (SDC) | payer BC ==
[2018-09-13] MEDS ORDERED: DEXAMETHASONE SODIUM PHOSPHATE 20 MG in SODIUM CHLORIDE 50 ML IVPB ONE (08:00)
[2018-09-13] MEDS ORDERED: PALONOSETRON HCL 0.25 MG/5 ML VIAL IVPUSH ONE (08:00)
[2018-09-13] MEDS ORDERED: WATER IV ONE (08:30)
[2018-09-13] MEDS ORDERED: DEXTROSE 5% IV ONE (08:30)
[2018-09-13] MEDS ORDERED: OXALIPLATIN IV ONE (08:30)
[2018-09-13 14:44] LABS: HEMATOCRIT 43.9 % (35.4-49); HEMOGLOBIN 14.7 GM/dL (11.7-16.9); LYMPH % 13.6 % (8-40); MCH 30.5 pg (25.7-33.7); MCHC 33.5 g/dl (32.0-35.9); MEAN CELL VOLUME 91.1 fl (80-96); MEAN PLT VOLUME 8.2 fl (7.5-11.1); MONO % 7.1 % (3.8-10.2); NEUT % 78.3 % (42.8-82.8); PLATELET COUNT 304 K/MM3 (134-434); RBC 4.82 M/mm3 (4.00-5.60); RDW 21.4 % (11.9-15.9)
[2018-09-13 15:11] LABS: ALBUMIN 3.8 g/dl (3.4-5.0); ALK PHOS 58 U/L (45-117); ANION GAP 6 MMOL/L (8-16); BILIRUBIN,TOTAL 0.5 mg/dL (0.2-1); BLOOD UREA NITROGEN 12 mg/dL (7-18); CALCIUM 9.7 mg/dL (8.5-10.1); CHLORIDE 106 mmol/L (98-107); CO2 27 mmol/L (21-32); GLUCOSE,RANDOM 153 mg/dL (74-106); POTASSIUM 4.1 mmol/L (3.5-5.1); SGOT/AST 62 U/L (15-37); SGPT/ALT 140 U/L (13-61); SODIUM 139 mmol/L (136-145)
[2018-09-13 15:19] LABS: ANISOCYTOSIS 1+; MACROCYTOSIS 1+; PLATELET ESTIMATE NORMAL
[2018-09-13] MEDS ORDERED: RANITIDINE HCL 150 MG TABLET (FP) PO ONE (16:44)
[2018-09-13 18:09] VITALS: BP 137/81; PULSE 99; TEMP 98.2
== END 2018-09-13 18:00 | disposition home or self-care (01) ==
LOC: JONCCHEMO 07:03 → J7W 14:34 → JONCCHEMO 18:00
PROVIDERS: ATTEND Internal Medicine Hematology & Oncology
DX: Z51.11 Encounter for antineoplastic chemotherapy (principal); C18.9 Malignant neoplasm of colon, unspecified
CPT/HCPCS: 36415; 80053; 82378; 85025; 96375; 96413; 96415; J2469; J9263

== ENCOUNTER 2018-10-04 07:12 | Day surgery (SDC) | payer BC | END 2018-10-04 16:03 | disposition home or self-care (01) | LOC: JONCCHEMO 07:12 → J7W 12:35 → JONCCHEMO 16:03 ==

== ENCOUNTER 2018-10-25 06:27 | Day surgery (SDC) | payer BC ==
[2018-10-25] MEDS ORDERED: DEXAMETHASONE SODIUM PHOSPHATE 20 MG in SODIUM CHLORIDE 50 ML IVPB ONE (10:00)
[2018-10-25] MEDS ORDERED: PALONOSETRON HCL 0.25 MG/5 ML VIAL IVPUSH ONE (10:00)
[2018-10-25] MEDS ORDERED: OXALIPLATIN IV ONE (10:30)
[2018-10-25] MEDS ORDERED: WATER IV ONE (10:30)
[2018-10-25] MEDS ORDERED: DEXTROSE 5% IV ONE (10:30)
[2018-10-25 10:33] LABS: BASO % 1.4 % (0-2.0); EOS % 2.3 % (0-4.5); HEMATOCRIT 44.9 % (35.4-49); HEMOGLOBIN 15.1 GM/dL (11.7-16.9); LYMPH % 33.5 % (8-40); MCH 31.9 pg (25.7-33.7); MCHC 33.7 g/dl (32.0-35.9); MEAN CELL VOLUME 94.6 fl (80-96); MEAN PLT VOLUME 8.4 fl (7.5-11.1); MONO % 14.4 % (3.8-10.2); NEUT % 48.4 % (42.8-82.8); PLATELET COUNT 242 K/MM3 (134-434); RBC 4.75 M/mm3 (4.00-5.60); RDW 18.9 % (11.9-15.9); WHITE BLOOD COUNT 5.6 K/mm3 (4.0-10.0)
[2018-10-25 11:12] LABS: ALBUMIN 3.8 g/dl (3.4-5.0); BILIRUBIN,DIRECT 0.2 mg/dL (0.0-0.2); BILIRUBIN,TOTAL 0.5 mg/dL (0.2-1); CREATININE 0.9 mg/dL (0.55-1.3); MAGNESIUM 2.2 mg/dL (1.8-2.4); POTASSIUM 3.7 mmol/L (3.5-5.1); TOT PROT 7.5 g/dl (6.4-8.2)
--- NOTE | 2018-10-25 11:55 | PN ---
Progress Note (short form) - Note Progress Note: Patient seen and examined Colon ca on CAPOX--cycle 6. BP-134/92 P-90 RR18 T-98.3 [id number] Lb 71in HEENT: NICOLAS, EOM Intact Oropharynx: No thrush, No mucositis Neck: Supple Nodes: Without adenopathy Cor: RSR, No murmurs, No gallops Lungs: Clear to P&A Abd: Soft, Normal bowel sounds, No organomegaly, surgical scar Ext:No significant edema Skin: No rashes, Integument intact CBC, BMP 10/25/18 10:02 10/25/18 10:02 Current Medications Generic Name Dose Route Start Last Admin Trade Name Freq PRN Reason Stop Dose Admin Oxaliplatin 300 mg/ Dextrose 560 mls @ 280 mls/hr 10/25/18 10:30 IV 10/25/18 12:29 ONCE ONE Impression: Colon ca Chemotherapy with oxaliplatin
[2018-10-25 14:26] VITALS: TEMP 97.7
[2018-10-25 14:28] VITALS: BP 138/94; PULSE 90
== END 2018-10-25 14:43 | disposition home or self-care (01) ==
LOC: JONCCHEMO 06:27 → J7W 11:27 → JONCCHEMO 14:43
PROVIDERS: ATTEND Internal Medicine Hematology & Oncology
PROC: 3E03305 Introduction of Other Antineoplastic into Peripheral Vein, Percutaneous Approach (ICD-10-PCS; principal; 2018-10-25)
PROC: 3E033GC Introduction of Other Therapeutic Substance into Peripheral Vein, Percutaneous Approach (ICD-10-PCS; 2018-10-25)
DX: Z51.11 Encounter for antineoplastic chemotherapy (principal); C18.9 Malignant neoplasm of colon, unspecified; I10 Essential (primary) hypertension; E66.9 Obesity, unspecified; Z68.32 Body mass index [BMI] 32.0-32.9, adult
CPT/HCPCS: 36415; 80048; 80076; 83735; 85025; 96375; 96413; 96415; J2469; J9263

== ENCOUNTER 2019-01-09 13:59 | Emergency (ER) | payer BC | END 2019-01-09 15:01 | disposition home or self-care (01) | LOC: JERFT 13:59 ==

== ENCOUNTER 2019-11-05 06:01 | Day surgery (SDC) | payer BC ==
[2019-11-05] MEDS ORDERED: ATROPINE SO4 0.4 MG/1 ML VIAL IVPUSH ONE (10:00)
[2019-11-05] MEDS ORDERED: DEXAMETHASONE SODIUM PHOSPHATE 10 MG in SODIUM CHLORIDE 50 ML IVPB ONE (10:00)
[2019-11-05] MEDS ORDERED: FOSAPREPITANT DIMEGLUMINE 150 MG in SODIUM CHLORIDE 150 ML IVPB ONE (10:00)
[2019-11-05] MEDS ORDERED: PALONOSETRON HCL 0.25 MG/5 ML VIAL IVPUSH ONE (10:00)
[2019-11-05] MEDS ORDERED: BEVACIZUMAB AWWB IVPB ONE (10:30)
[2019-11-05] MEDS ORDERED: SODIUM CHLORIDE IVPB ONE (10:30)
[2019-11-05] MEDS ORDERED: IRINOTECAN HCL 370 MG in DEXTROSE 5%-WATER - 500 ML IVPB ONE ×2 (11:30→15:00)
[2019-11-05] MEDS ORDERED: ALTEPLASE 2 MG VIAL CVP ONE (13:00)
[2019-11-05 13:16] LABS: BASO % 1.5 % (0-2.0); EOS % 4.5 % (0-4.5); HEMATOCRIT 42.5 % (35.4-49); HEMOGLOBIN 14.6 GM/dL (11.7-16.9); LYMPH % 38.5 % (8-40); MCH 31.2 pg (25.7-33.7); MCHC 34.4 g/dl (32.0-35.9); MEAN CELL VOLUME 90.7 fl (80-96); MEAN PLT VOLUME 8.5 fl (7.5-11.1); MONO % 12.6 % (3.8-10.2); NEUT % 42.9 % (42.8-82.8); PLATELET COUNT 275 K/MM3 (134-434); RBC 4.69 M/mm3 (4.00-5.60); RDW 14.6 % (11.9-15.9); WHITE BLOOD COUNT 4.9 K/mm3 (4.0-10.0)
[2019-11-05 13:57] LABS: ALBUMIN 3.8 g/dl (3.4-5.0); BILIRUBIN,TOTAL 0.5 mg/dL (0.2-1); BLOOD UREA NITROGEN 11.2 mg/dL (7-18); CREATININE 0.9 mg/dL (0.55-1.3); MAGNESIUM 2.3 mg/dL (1.8-2.4); POTASSIUM 4.2 mmol/L (3.5-5.1); TOT PROT 7.5 g/dl (6.4-8.2)
[2019-11-05] MEDS ORDERED: SODIUM CHLORIDE 500 ML IV STA (14:16)
[2019-11-05 18:22] VITALS: TEMP 98.6
[2019-11-05 18:25] VITALS: BP 135/89; PULSE 83
[2019-11-05 18:50] LABS: URINE APPEARANCE CLEAR; URINE BILIRUBIN NEGATIVE (NEGATIVE); URINE COLOR YELLOW; URINE GLUCOSE (UA) NEGATIVE (NEGATIVE); URINE KETONE TRACE (NEGATIVE); URINE LEUK ESTERASE NEGATIVE (NEGATIVE); URINE NITRITE NEGATIVE (NEGATIVE); URINE PROTEIN NEGATIVE (NEGATIVE)
== END 2019-11-05 18:27 | disposition home or self-care (01) ==
LOC: JONCCHEMO 06:01
PROVIDERS: ATTEND Internal Medicine Hematology & Oncology
DX: Z51.11 Encounter for antineoplastic chemotherapy (principal); C18.9 Malignant neoplasm of colon, unspecified
CPT/HCPCS: 36415; 80053; 81003; 83735; 85025; 96361; 96367; 96375; 96413; 96417; J1453; J2469; J2997; J9206; Q5107

== ENCOUNTER 2019-12-03 07:20 | Day surgery (SDC) | payer BC ==
[~2019-12-03 07:20] MED LIST: ATROPINE SO4 0.4 MG/1 ML VIAL IVPUSH ONE; BEVACIZUMAB AWWB IVPB ONE; DEXAMETHASONE SODIUM PHOSPHATE 10 MG in SODIUM CHLORIDE 50 ML IVPB ONE; FOSAPREPITANT DIMEGLUMINE 150 MG in SODIUM CHLORIDE 150 ML IVPB ONE; IRINOTECAN HCL 370 MG in DEXTROSE 5%-WATER - 500 ML IVPB ONE; PALONOSETRON HCL 0.25 MG/5 ML VIAL IVPUSH ONE; SODIUM CHLORIDE IVPB ONE
[2019-12-03 12:10] LABS: BASO % 1.2 % (0-2.0); EOS % 3.8 % (0-4.5); HEMATOCRIT 43.2 % (35.4-49); HEMOGLOBIN 14.5 GM/dL (11.7-16.9); LYMPH % 32.7 % (8-40); MCH 31.3 pg (25.7-33.7); MCHC 33.6 g/dl (32.0-35.9); MEAN CELL VOLUME 93.2 fl (80-96); MEAN PLT VOLUME 9.2 fl (7.5-11.1); MONO % 13.8 % (3.8-10.2); NEUT % 48.5 % (42.8-82.8); PLATELET COUNT 282 K/MM3 (134-434); RBC 4.64 M/mm3 (4.00-5.60); RDW 15.3 % (11.9-15.9); WHITE BLOOD COUNT 7.1 K/mm3 (4.0-10.0)
[2019-12-03 12:29] LABS: ALBUMIN 3.7 g/dl (3.4-5.0); BILIRUBIN,TOTAL 0.4 mg/dL (0.2-1); BLOOD UREA NITROGEN 6.4 mg/dL (7-18); CALCIUM 9.3 mg/dL (8.5-10.1); CREATININE 0.8 mg/dL (0.55-1.3); POTASSIUM 4.2 mmol/L (3.5-5.1); TOT PROT 7.6 g/dl (6.4-8.2)
[2019-12-03] MEDS ORDERED: SODIUM CHLORIDE 500 ML IV STA (12:31)
[2019-12-03] MEDS ORDERED: DEXAMETHASONE INJECTION 10 MG in SODIUM CHLORIDE 50 ML IVPB ONE (13:00)
[2019-12-03] MEDS ORDERED: ATROPINE SO4 0.4 MG/1 ML VIAL IVPUSH ONE (13:00)
[2019-12-03] MEDS ORDERED: PALONOSETRON HCL 0.25 MG/5 ML VIAL IVPUSH ONE (13:00)
[2019-12-03] MEDS ORDERED: FOSAPREPITANT DIMEGLUMINE 150 MG in SODIUM CHLORIDE 145 ML IVPB ONE (13:00)
[2019-12-03] MEDS ORDERED: IRINOTECAN HCL 370 MG in DEXTROSE 5%-WATER - 500 ML IVPB ONE (13:30)
[2019-12-03] MEDS ORDERED: ATENOLOL 50 MG TABLET (FP) PO SCH (13:30)
[2019-12-03] MEDS ORDERED: BEVACIZUMAB AWWB IVPB ONE (15:00)
[2019-12-03] MEDS ORDERED: SODIUM CHLORIDE IVPB ONE (15:00)
[2019-12-03] MEDS ORDERED: PANTOPRAZOLE 40 MG TABLET PO ONE (16:00)
[2019-12-03 18:49] VITALS: BP 140/95; PULSE 63; TEMP 98.8
[2019-12-03] MEDS ORDERED: PORTA CATH FLUSH 10 ML IVPUSH ONE (18:49)
== END 2019-12-03 16:38 | disposition home or self-care (01) ==
LOC: JONCCHEMO 07:20
PROVIDERS: ATTEND Internal Medicine Hematology & Oncology
DX: Z51.11 Encounter for antineoplastic chemotherapy (principal); C18.9 Malignant neoplasm of colon, unspecified
CPT/HCPCS: 36415; 80053; 82378; 85025; 96361; 96367; 96375; 96413; 96417; J1100; J1453; J2469; J9206; Q5107

== ENCOUNTER 2020-01-08 04:47 | Inpatient (IN) | payer BC ==
[2020-01-07 09:29] VITALS: BMI 35.9
[2020-01-08] MEDS ORDERED: LIDOCAINE 1%/EPI 1:100000 (20 ML MULTI DOSE VIAL) ONE (07:37)
--- NOTE | 2020-01-08 09:35 | HP ---
History & Physical Update - History History: No Change - Physical Physical: No Change - Assessment Assessment: No Change - Plan Plan: No Change (no changes since visit on 01/06/20)
[2020-01-08] MEDS ORDERED: SUCCINYLCHOLINE CHLORIDE 200 MG/10 ML SYRINGE ONE (09:37)
[2020-01-08] MEDS ORDERED: MIDAZOLAM HCL 2 MG/2 ML SINGLE DOSE VIAL ONE ×2 (09:37)
[2020-01-08] MEDS ORDERED: ROCURONIUM BROMIDE 50 MG/5 ML SYRINGE ONE ×3 (09:37→11:28)
[2020-01-08] MEDS ORDERED: fentaNYL CITRATE 250 MCG/5 ML VIAL ONE (09:37)
[2020-01-08] MEDS ORDERED: LIDOCAINE HCL/PF 2% SDV 5ML VIAL ONE (09:38)
[2020-01-08] MEDS ORDERED: SEVOFLURANE 250 ML BTL ONE (09:40)
[2020-01-08] MEDS ORDERED: BUPIVACAINE LIPOSOME/PF (EXPAREL) 266 MG/20 ML VIAL ONE (09:41)
[2020-01-08] MEDS ORDERED: BUPIVACAINE HCL/PF 0.25% (2.5MG/ML) 10 ML VIAL ONE (09:41)
[2020-01-08] MEDS ORDERED: ceFAZolin SODIUM 1 GM VIAL ONE ×2 (10:32→17:50)
[2020-01-08] MEDS ORDERED: HEPARIN NA (PORCINE) 5,000 UNITS/ML 1ML VIAL ONE (10:33)
[2020-01-08] MEDS ORDERED: ceFAZolin SODIUM 1 GM VIAL IVPB ONE (10:35)
[2020-01-08] MEDS ORDERED: HEPARIN NA (PORCINE) 5,000 UNITS/ML 1ML VIAL SQ ONE (10:36)
[2020-01-08] MEDS ORDERED: DEXAMETHASONE SOD PHOSPHATE 4 MG/1 ML VIAL ONE (10:38)
[2020-01-08] MEDS ORDERED: BUPIVACAINE HCL/PF 0.25% (2.5MG/ML) 10 ML VIAL IJ ONE (10:46)
[2020-01-08] MEDS ORDERED: BUPIVACAINE LIPOSOME/PF (EXPAREL) 266 MG/20 ML VIAL IJ ONE (10:46)
[2020-01-08] MEDS ORDERED: KETOROLAC TROMETHAMINE 30 MG/1 ML VIAL ONE (11:53)
[2020-01-08] MEDS ORDERED: ACETAMINOPHEN INJECTION 100 ML IVPB ONE (11:54)
[2020-01-08] MEDS ORDERED: NEOSTIGMINE METHYLSULFATE 0.5 MG/ML - 10 ML MDV ONE (12:19)
--- NOTE | 2020-01-08 12:30 | OPR ---
Patient Name: Isaias Allen MR#: [id number] Procedure Date: 01/08/2020 Preoperative Diagnosis: 1. Metastatic colorectal cancer; 2. s/p partial colectomy. Postoperative Diagnosis: same Procedure: 1. Bronchoscopy; 2. Right robot-assisted wedge resection and intercostal block spaces 3-10 for postoperative pain control.. Indication: Metastatic disease refractory to systemic therapy. Surgeon(s): Enrique Patino MD Cosurgeon: evelyn Sand Technologist Surgeon: SUNG Gannon. Anesthesia: General with intercostal block; Findings: no pleural disease; scar over RML; nodule in RUL with grossly negative margin and negative margin on frozen section. Specimens Sent: none Complications: none Drains / Tubes / Catheters: chest tube; newberry. Hardware / Implants: na Blood / Fluid Losses: minimal Post-Operative Condition: Hemodynamically stable in transfer to PACU Indications: This patient is a 44 year-old male with a history of colorectal cancer s/p colectomy and systemic therapy and right upper lobe lung nodule refractory to systemic therapy. For this reason, he was offered a resection. After discussion and consideration of risks, benefits, and alternatives with the patient, he agreed to the procedure. The patient understood the risks and benefits. Details of Procedure: The patient was taken into the operating room and placed supine on the table. He was monitored with pulse oximetry and blood pressure monitoring. He was intubated with a double-lumen tube and a newberry was placed. A bronchoscopy checked the airway for disease and positioned the tube. Preoperative antibiotics and subcutaneous heparin were given. We positioned him in the left lateral decubitus. We prepared and draped and used liposomal and standard bupivicaine for the 4 ports (a 5mm, 2 8mm, and a 12mm). We entered with a 5mm camera and then placed the robot ports. The pleura was inspected and was clean. Only one lesion was identified. We resected it after blocking the aforementioned intercostal spaces. We removed it in a bag, obtained, hemostasis, and placed a chest drain. Incisions were closed and dressings was placed. He was transferred to the PACU in hemodynamically stable condition. I am and will be present for his postoperative care.
[2020-01-08] MEDS ORDERED: oxyCODONE HCL 5 MG TABLET PO PRN (13:00)
[2020-01-08] MEDS ORDERED: SODIUM CHLORIDE 1,000 ML IV SCH (13:00)
[2020-01-08] MEDS ORDERED: ONDANSETRON 4 MG/2 ML VIAL IVPUSH PRN (13:12)
[2020-01-08] MEDS ORDERED: LACTATED RINGERS SOLUTION 1,000 ML IV SCH (13:15)
--- NOTE | 2020-01-08 13:59 | SURG ---
Surgery Nonprofit Manager Note Nonprofit Manager: Trish Braahona PA-C Date of Service: 01/08/20 Diagnosis: Metastatic colorectal cancer; s/p partial colectomy. Procedure: 1. Bronchoscopy; 2. Right robot-assisted wedge resection and intercostal block spaces 3-10 for postoperative pain control. I was present for the entirety of the operative procedure. For further detail, please refer to operative report. Visit type - Case Type Case Type: Scheduled - Emergency Emergency Visit: No - New patient This patient is new to me today: Yes Date on this admission: 01/08/20
[2020-01-08] MEDS: KETOROLAC TROMETHAMINE 30 MG/1 ML VIAL IVPUSH SCH ×2 (14:14→21:28)
[2020-01-08] MEDS: MUPIROCIN 2% TOPICAL OINTMENT FOR DECOLONIZATION NS SCH ×2 (14:17→21:32)
--- NOTE | 2020-01-08 15:50 | CONSULT ---
Consultation: REQUESTING PROVIDER: CONSULT REQUEST: We have been asked to medically evaluate this patient for post- op monitoring. HISTORY OF PRESENT ILLNESS: This is a 44 year old male with PMH DM and metastatic colon cancer (s/p hemicolectomy 02/15/2018) with mets to the lung. Pt had undergone chemotherapy (last chemo was 12/03/2019) for a right upper lung nodule. However, the lung nodule was refractory to systemic treatment and decision was made to resect it. Pt undergone bronchoscopy with resection of RUL nodule, without complications. He stated that he has no physical complaints. Denies any fevers, chills, nausea, vomiting, shortness of breath or chest pain. Pt endorses to passing gas after surgery. REVIEW OF SYSTEMS: As per HPI. Objective General: Lying comfortably on bed. AAOx3, not in acute distress. HEENT: NCAT, EOMI. Moist mucus membranes. Conjunctiva clear. Cardio: Regular rate and rhythm. S1, S2 present. No murmurs. Pulmonary: Clear to auscultation b/l. No wheezes. No accessory muscle use. R Chest tube in place. GI: Obese. Non-distended. Not tender to palpation. Bowel sounds present in all 4 quadrants. Extremities: Warm, well-perfused, no edema. Laboratory Last Values POC Glucometer 158 UNITS (80-120) 01/08/20 13:06 Blood Type O POSITIVE 01/08/20 07:18 Antibody Screen Negative 01/08/20 07:18 Crossmatch See Detail 01/08/20 07:18 Active Medications Acetaminophen (Tylenol -) 650 mg PO Q6H PRN PRN Reason: pain 1-3 or fever Amlodipine Besylate (Norvasc -) 10 mg PO DAILY [facility] Atenolol (Tenormin -) 50 mg PO DAILY [facility] Chlorhexidine Gluconate (Hibiclens For Decolonization -) 1 applic TP HS [facility] Fentanyl (Sublimaze Injection -) 50 mcg IVPUSH [id number] PRN PRN Reason: PAIN-PACU ORDER X 4 DOSES ONLY Heparin Sodium (Porcine) (Heparin -) 5,000 unit SQ TID [facility] Sodium Chloride (Normal Saline -) 1,000 mls @ 75 mls/hr IV ASDIR [facility] Last Admin: 01/08/20 14:14 Dose: 75 mls/hr Documented by: Cefazolin Sodium 1 gm/ (Dextrose) 50 mls @ 100 mls/hr IVPB Q8H-IV [facility] Stop: 01/09/20 02:29 Insulin Aspart (Novolog Vial Sliding Scale -) 1 vial SQ TIDAC [facility]; Protocol Insulin Detemir (Levemir Vial) 20 units SQ HS [facility] Ipratropium [place] (Atrovent 0.02% Nebulizer -) 1 amp NEB Q6H [facility] Stop: 01/15/20 13:18 Ketorolac Tromethamine (Toradol Injection -) 30 mg IVPUSH Q6H [facility] Stop: 01/13/20 12:59 Last Admin: 01/08/20 14:14 Dose: Not Given Documented by: Metformin HCl (Glucophage -) 1,000 mg PO BIDI [facility] Mupirocin (Bactroban Ointment (For Decolonization) -) 1 applic NS BID [facility] Stop: 01/13/20 13:14 Last Admin: 01/08/20 14:17 Dose: 1 applic Documented by: Ondansetron HCl (Zofran Injection) 4 mg IVPUSH Q6H PRN PRN Reason: NAUSEA AND/OR VOMITING Oxycodone HCl (Roxicodone -) 5 mg PO Q4H PRN PRN Reason: PAIN LEVEL 1-5 Oxycodone HCl (Roxicodone -) 10 mg PO Q4H PRN PRN Reason: PAIN LEVEL 6-10 ASSESSMENT/PLAN: This is a 44 year old male with PMH DM and metastatic colon cancer (s/p regine colectomy 02/15/2018) with mets to the lung. He is POD#0 for bronchoscopy and resection of RUL nodule. Surgery was w/o complicatoin. Pt is hemodynamically stable. Neuro -Alert and oriented Cardiac -Normotensive -c/w amlodipine 10qD, atenolol 50qD -Monitor and maintain MAP>65 Pulmonary RUL nodule secondary to metastatic colon cancer -s/p bronchoscopy and resection of nodule -c/w Atrovent -c/w Oxycodone, fentanyl, ketorolac, acetaminophen PRN for pain -Discussed case with surgery regarding post-op management. -CXR reviewed. R chest tube visualized. No pneumothorax. GI Metastatic colon cancer -hemicolectomy in 2018 -Advance diet to clears. Diabetic diet tomorrow. -Zofran PRN for nausea MSK -OOB to chair tonight -No strenuous physical activity for ~2 weeks. -trial of voiding tonight and d/c newberry Endo T2DM -hold metformin 1000 BID until baseline labs. -levemir 10U qHS -ISS + BGM ID Post-op -Post-op cefazolin for 24 hours LTD -R chest tube 01/07 -Newberry 01/07 FEN -NS @ 75 -monitor and maintain electrolytes -Clear diet tonight, advance to diabetic diet tomorrow morning. Ppx -DVT: SQH -GI :PPI Dispo: Continue to monitor in the ICU. Thank you for this consultative opportunity. Visit type - Emergency Visit Emergency Visit: No - New Patient This patient is new to me today: Yes Date on this admission: 01/08/20 - Critical Care Critical Care patient: No ATTENDING PHYSICIAN STATEMENT I saw and evaluated the patient. I reviewed the resident's note and discussed the case with the resident. I agree with the resident's findings and plan as documented. SUBJECTIVE: OBJECTIVE: ASSESSMENT AND PLAN:
--- NOTE | 2020-01-08 16:05 | PN ---
Teaching Attending Note Name of Resident: Stella Sotelo ATTENDING PHYSICIAN STATEMENT I saw and evaluated the patient. I reviewed the resident's note and discussed the case with the resident. I agree with the resident's findings and plan as documented. SUBJECTIVE: Patient seen and examined in the ICU. 44 M, DM and metastatic colon cancer (s/p hemicolectomy 02/15/2018) with mets to the lung. S/P chemotherapy (last was 12/03/2019) for a right upper lung nodule. Now S/P bronchoscopy with right robot assisted wedge resection. Intercostal blo cks in spaces 3 to 10 for post-operative pain was also performed. No intra or post-operative complications were noted. Intake & Output 01/05/20 01/06/20 01/07/20 01/08/20 23:59 23:59 23:59 23:59 Intake Total 1500 Output Total 220 Balance 1280 Weight 265 lb 265 lb Last Vital Signs Temp Pulse Resp BP Pulse Ox 98.6 F 69 48 H 139/85 100 01/08/20 13:30 01/08/20 15:11 01/08/20 15:11 01/08/20 15:11 01/08/20 15:11 Active Medications Acetaminophen (Tylenol -) 650 mg PO Q6H PRN PRN Reason: pain 1-3 or fever Amlodipine Besylate (Norvasc -) 10 mg PO DAILY [facility] Atenolol (Tenormin -) 50 mg PO DAILY [facility] Chlorhexidine Gluconate (Hibiclens For Decolonization -) 1 applic TP HS [facility] Fentanyl (Sublimaze Injection -) 50 mcg IVPUSH [id number] PRN PRN Reason: PAIN-PACU ORDER X 4 DOSES ONLY Heparin Sodium (Porcine) (Heparin -) 5,000 unit SQ TID [facility] Sodium Chloride (Normal Saline -) 1,000 mls @ 75 mls/hr IV ASDIR [facility] Last Admin: 01/08/20 14:14 Dose: 75 mls/hr Documented by: Cefazolin Sodium 1 gm/ (Dextrose) 50 mls @ 100 mls/hr IVPB Q8H-IV [facility] Stop: 01/09/20 02:29 Insulin Aspart (Novolog Vial Sliding Scale -) 1 vial SQ TIDAC [facility]; Protocol Insulin Detemir (Levemir Vial) 20 units SQ HS [facility] Ipratropium [place] (Atrovent 0.02% Nebulizer -) 1 amp NEB Q6H [facility] Stop: 01/15/20 13:18 Ketorolac Tromethamine (Toradol Injection -) 30 mg IVPUSH Q6H [facility] Stop: 01/13/20 12:59 Last Admin: 01/08/20 14:14 Dose: Not Given Documented by: Metformin HCl (Glucophage -) 1,000 mg PO BIDI [facility] Mupirocin (Bactroban Ointment (For Decolonization) -) 1 applic NS BID [facility] Stop: 01/13/20 13:14 Last Admin: 01/08/20 14:17 Dose: 1 applic Documented by: Ondansetron HCl (Zofran Injection) 4 mg IVPUSH Q6H PRN PRN Reason: NAUSEA AND/OR VOMITING Oxycodone HCl (Roxicodone -) 5 mg PO Q4H PRN PRN Reason: PAIN LEVEL 1-5 Oxycodone HCl (Roxicodone -) 10 mg PO Q4H PRN PRN Reason: PAIN LEVEL 6-10 General: AAOx3, not in acute distress. HEENT: NCAT, EOMI. Moist mucus membranes. Conjunctiva clear. Cardio: Regular rate and rhythm. S1, S2 present. No murmurs. Pulmonary: Right CT intact and w/o air leak, diminished right. No accessory muscle use. GI: Obese. Non-distended. Not tender to palpation. Bowel sounds present in all 4 quadrants. Extremities: Warm, well-perfused, no edema. Laboratory Results - last 24 hr 01/08/20 01/08/20 01/08/20 07:18 08:35 13:06 POC Glucometer 149 158 Blood Type O POSITIVE Antibody Screen Negative Crossmatch See Detail ASSESSMENT/PLAN: POD #0: S/P bronchoscopy with right robot assisted wedge resection. Intercostal blocks in spaces 3 to 10 for post-operative pain was also performed. Metastatic colon cancer (s/p hemicolectomy 02/15/2018) with mets to the lung. S/P chemotherapy (last was 12/03/2019). DM Pain control Monitor CT output Incentive Spirometry Follow I & O Supplemental O2 as needed VTE prophylaxis ICU monitoring Dr Hsu
[2020-01-08] MEDS ORDERED: metFORMIN HCL 500 MG TABLET (FP) PO SCH (16:30)
--- NOTE | 2020-01-08 16:57 | HP ---
CHIEF COMPLAINT: s/p bronchoscopy & robotic assisted R lobe pulmonary wedge resection; intercostal block spaces 3-10 for postoperative pain control.. PCP: HISTORY OF PRESENT ILLNESS: L abdominal pain in 12/2017 and was admitted for intrabdominal abscess. Outpatient colonoscopy showed apple core mass of L colon. Found to have adenocarcinoma. S/p L hemicolectomy 01/2018. Chemotherapy (irinotecan and avastin), last dose 11/2019. Underwent bronchoscopy & robotic assisted R lobe pulmonary wedge resection today. Recent Travel: denies PAST MEDICAL HISTORY: HTN, DM T2 (recently diagnosed), colon cancer with mets s/p L hemicoelctomy (0 01/2018) PAST SURGICAL HISTORY: hemicolectomy (01/2018), umbilical hernia repair,lung biopsy, robot assisted R lobe pulmonary wedge resection Social History: Smoking:denies Alcohol: previously 1-2 vodka/day. Then stopped. 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 [employer] project helped release 3 years ago. Allergies No Known Allergies Allergy (Verified 01/08/20 08:27) Family History Mother at age 70s after [place] 2/2 PNA Father alive, no health issues maternal uncle & aunt have colon cancer HOME MEDICATIONS: Home Medications Medication Instructions Recorded Amlodipine Besylate [Norvasc -] 10 mg PO DAILY 12/16/19 Atenolol [Tenormin -] 50 mg PO DAILY 12/16/19 Insulin Glargine,Hum.rec.anlog 20 units SQ HS 12/16/19 [Lantus Solostar PEN (NF)] Metformin HCl [Glucophage] 1,000 mg PO BID 12/16/19 REVIEW OF SYSTEMS CONSTITUTIONAL: Absent: fever, chills, diaphoresis, generalized weakness, malaise, loss of appetite, weight change HEENT: Absent: rhinorrhea, nasal congestion, throat pain, throat swelling, difficulty swallowing, mouth swelling, ear pain, eye pain, visual changes CARDIOVASCULAR: Absent: chest pain, syncope, palpitations, irregular heart rate, lightheadedness, peripheral edema RESPIRATORY: Absent: cough, shortness of breath, dyspnea with exertion, orthopnea, wheezing, stridor, hemoptysis GASTROINTESTINAL: Absent: abdominal pain, abdominal distension, nausea, vomiting, diarrhea, constipation, melena, hematochezia GENITOURINARY: Absent: dysuria, frequency, urgency, hesitancy, hematuria, flank pain, genital pain MUSCULOSKELETAL: Absent: myalgia, arthralgia, joint swelling, back pain, neck pain SKIN: Absent: rash, itching, pallor HEMATOLOGIC/IMMUNOLOGIC: Absent: easy bleeding, easy bruising, lymphadenopathy, frequent infections ENDOCRINE: Absent: unexplained weight gain, unexplained weight loss, heat intolerance, cold intolerance NEUROLOGIC: Absent: headache, focal weakness or paresthesias, dizziness, unsteady gait, seizure, mental status changes, bladder or bowel incontinence PSYCHIATRIC: Absent: anxiety, depression, suicidal or homicidal ideation, hallucinations. PHYSICAL EXAMINATION Vital Signs - 24 hr 01/08/20 01/08/20 01/08/20 07:47 13:00 13:15 Temperature 97.7 F 98.1 F 98.4 F Pulse Rate 69 63 65 Respiratory 18 21 H 26 H Rate Blood Pressure 141/95 121/79 119/90 O2 Sat by Pulse 97 98 97 Oximetry (%) 01/08/20 01/08/20 13:30 15:11 Temperature 98.6 F Pulse Rate 69 69 Respiratory 19 48 H Rate Blood Pressure 128/95 139/85 O2 Sat by Pulse 96 100 Oximetry (%) GENERAL: Awake, alert, and fully oriented, in no acute distress. HEAD: Normal with no signs of trauma. EYES: Pupils equal, round and reactive to light, extraocular movements intact, sclera anicteric, conjunctiva clear. No lid lag. EARS, NOSE, THROAT: Ears normal, nares patent, oropharynx clear without exudates. dry mucous membranes. LUNGS: decreased Breath sounds b/l, clear to auscultation bilaterally. No wheezes, and no crackles. No accessory muscle use. R sideded port-a-cath in IJ. 2 incisions in mid-axillary incisions with surgical glue. R-sided chest tube; HEART: Regular rate and rhythm, normal S1 and S2 without murmur, rub or gallop. ABDOMEN: Soft, nontender, not distended, normoactive bowel sounds, midline incision from colectomy MUSCULOSKELETAL: Normal range of motion at all joints. No bony deformities or tenderness. No CVA tenderness. UPPER EXTREMITIES: 2+ pulses, warm, well-perfused. No cyanosis. No clubbing. No peripheral edema. LOWER EXTREMITIES: 2+ pulses, warm, well-perfused. No calf tenderness. No peripheral edema. NEUROLOGICAL: Normal speech. Normal gait. PSYCHIATRIC: Cooperative. Good eye contact. Appropriate mood and affect. SKIN: Warm, dry, normal turgor, no rashes or lesions noted, normal capillary refill. tattoos on arms & chest Laboratory Results - last 24 hr 01/08/20 01/08/20 01/08/20 07:18 08:35 13:06 POC Glucometer 149 158 Blood Type O POSITIVE Antibody Screen Negative Crossmatch See Detail ASSESSMENT/PLAN: 44 YO M PMH HTN, DM T2 (recently diagnosed), colon cancer with mets s/p L hemicoelctomy (01/2018) presented for bronchoscopy & robotic assisted R lobe pulmonary wedge resection. #Colon cancer w/ mets; Lung nodule s/p bronchoscopy & robotic assisted R lobe pulmonary wedge resection -as per surgery microblog, Chest tube on suction will be put on waterseal on midnight. Repeat x-ray in AM. Will likely DC tube and dc home tomorrow. -on oxycodone, fentanyl, ketorolac for pain -Carcinoembryonic antigen from 12/31/19 5.7; amylase was 134 12/31/19 #h/o transaminitis AST/ALT 186/195 (12/31/2019) -trending up since 08/23/2018 -h/o alcohol use -CT CHest: diffuse fatty infiltration of lvier -previous CTAP (07/05/2019) showed 1.8 cm lesion representing cyst -previous incarceration. Hepatitis panel negative 11/15/18. -consider ultrasound outpatient #HTN -c/w home rx amlodipine 10 mg PO daily atenolol 10 mg PO daily #DM levemir 20 units SQ HS ISS BGM #FEN NS@75 ml/hr monitor lytes clear liquid diet (diabetic) #DVT ppx heparin 5,000 sq TID #DISPO maintain tele ATTENDING PHYSICIAN STATEMENT I saw and evaluated the patient. I reviewed the resident's note and discussed the case with the resident. I agree with the resident's findings and plan as documented. SUBJECTIVE: OBJECTIVE: ASSESSMENT AND PLAN:
[2020-01-08 17:11] LABS: HEMATOCRIT 44.3 % (35.4-49); HEMOGLOBIN 14.8 GM/dL (11.7-16.9); MCH 31.3 pg (25.7-33.7); MCHC 33.5 g/dl (32.0-35.9); MEAN CELL VOLUME 93.6 fl (80-96); MEAN PLT VOLUME 9.5 fl (7.5-11.1); PLATELET COUNT 224 K/MM3 (134-434); RBC 4.74 M/mm3 (4.00-5.60); RDW 15.4 % (11.9-15.9); WHITE BLOOD COUNT 9.3 K/mm3 (4.0-10.0)
[2020-01-08] MEDS: INSULIN SLIDING SCALE (NOVOLOG) 1 VIAL SQ SCH (17:22)
[2020-01-08 17:40] LABS: ALBUMIN 3.5 g/dl (3.4-5.0); BILIRUBIN,TOTAL 0.5 mg/dL (0.2-1); BLOOD UREA NITROGEN 11.2 mg/dL (7-18); CALCIUM 9.3 mg/dL (8.5-10.1); POTASSIUM 4.5 mmol/L (3.5-5.1); TOT PROT 7.5 g/dl (6.4-8.2)
[2020-01-08] MEDS ORDERED: DEXTROSE 5%-WATER - 50 ML IVPB ONE (17:50)
[2020-01-08] MEDS: IPRATROPIUM BR 0.02% 0.5 MG/2.5 ML VIAL.NEB. NEB SCH (17:51)
[2020-01-08] MEDS: CEFAZOLIN 1 GM in DEXTROSE 5%-WATER - 50 ML IVPB SCH (18:11)
[2020-01-08] MEDS: oxyCODONE HCL 5 MG TABLET PO PRN (18:48)
[2020-01-08] MEDS: ACETAMINOPHEN 325 MG TABLET (FP) PO PRN (18:49)
[2020-01-08] MEDS: HEPARIN NA (PORCINE) 5,000 UNITS/ML 1ML VIAL SQ SCH (21:30)
[2020-01-08] MEDS ORDERED: INSULIN (LEVEMIR) 100 UNITS/ML UNITS SQ SCH ×2 (22:00)
[2020-01-08] MEDS ORDERED: CHLORHEXIDINE GLUCONATE 4% CLEANSER FOR DECOLONIZATION TP SCH (22:00)
[2020-01-09] MEDS ORDERED: ceFAZolin SODIUM 1 GM VIAL ONE (00:58)
[2020-01-09] MEDS ORDERED: DEXTROSE 5%-WATER - 50 ML IVPB ONE (00:58)
[2020-01-09] MEDS: KETOROLAC TROMETHAMINE 30 MG/1 ML VIAL IVPUSH SCH ×3 (01:25→12:50)
[2020-01-09] MEDS: CEFAZOLIN 1 GM in DEXTROSE 5%-WATER - 50 ML IVPB SCH (01:26)
[2020-01-09] MEDS: HEPARIN NA (PORCINE) 5,000 UNITS/ML 1ML VIAL SQ SCH (06:10)
[2020-01-09 06:40] LABS: HEMATOCRIT 44.6 % (35.4-49); MCH 31.3 pg (25.7-33.7); MCHC 33.6 g/dl (32.0-35.9); MEAN CELL VOLUME 93.1 fl (80-96); MEAN PLT VOLUME 9.5 fl (7.5-11.1); PLATELET COUNT 230 K/MM3 (134-434); RBC 4.79 M/mm3 (4.00-5.60); RDW 15.4 % (11.9-15.9); WHITE BLOOD COUNT 12.4 K/mm3 (4.0-10.0)
[2020-01-09 07:12] LABS: ALBUMIN 3.2 g/dl (3.4-5.0); BILIRUBIN,TOTAL 0.5 mg/dL (0.2-1); BLOOD UREA NITROGEN 12.5 mg/dL (7-18); CALCIUM 8.8 mg/dL (8.5-10.1); MAGNESIUM 2.3 mg/dL (1.8-2.4); POTASSIUM 4.4 mmol/L (3.5-5.1); TOT PROT 7.1 g/dl (6.4-8.2)
[2020-01-09] MEDS ORDERED: amLODIPine BESYLATE 10 MG TABLET (FP) PO ONE (07:15)
[2020-01-09] MEDS: INSULIN SLIDING SCALE (NOVOLOG) 1 VIAL SQ SCH ×2 (07:29→11:12)
--- NOTE | 2020-01-09 07:30 | PN ---
Physical Exam: SUBJECTIVE: Patient seen and examined. POD#1 for bronchoscopy and resection of RUL nodule. No acute events overnight. Pt denies chest pain, shortness of breath, abdominal pain. Pt has good appetite and reported 1 BM in the morning. Discussed with surgery for further recommendations. Surgical PA stated that pt can be discharged home and f/u with surgeon. OBJECTIVE: Vital Signs Period Temp Pulse Resp BP Sys/Santizo Pulse Ox Last 24 Hr 97.6 F-99.0 F 60-96 17-48 108-165/79-116 92-100 General: Lying comfortably on bed. AAOx3, not in acute distress. HEENT: NCAT, EOMI. Moist mucus membranes. Conjunctiva clear. Chipped incisor. Cardio: Regular rate and rhythm. S1, S2 present. No murmurs. Pulmonary: Clear to auscultation b/l. No wheezes. No accessory muscle use. R Chest tube in place. GI: Obese. Non-distended. Not tender to palpation. Bowel sounds present in all 4 quadrants. Extremities: Warm, well-perfused, no edema. Laboratory Last Values WBC 12.4 K/mm3 (4.0-10.0) H 01/09/20 06:00 RBC 4.79 M/mm3 (4.00-5.60) 01/09/20 06:00 Hgb 15.0 GM/dL (11.7-16.9) 01/09/20 06:00 Hct 44.6 % (35.4-49) 01/09/20 06:00 MCV 93.1 fl (80-96) 01/09/20 06:00 MCH 31.3 pg (25.7-33.7) 01/09/20 06:00 MCHC 33.6 g/dl (32.0-35.9) 01/09/20 06:00 RDW 15.4 % (11.9-15.9) 01/09/20 06:00 Plt Count 230 K/MM3 (134-434) 01/09/20 06:00 MPV 9.5 fl (7.5-11.1) 01/09/20 06:00 Sodium 141 mmol/L (136-145) 01/09/20 06:00 Potassium 4.4 mmol/L (3.5-5.1) 01/09/20 06:00 Chloride 106 mmol/L (98-107) 01/09/20 06:00 Carbon Dioxide 27 mmol/L (21-32) 01/09/20 06:00 Anion Gap 8 MMOL/L (8-16) 01/09/20 06:00 BUN 12.5 mg/dL (7-18) 01/09/20 06:00 Creatinine 1.0 mg/dL (0.55-1.3) 01/09/20 06:00 Est GFR (CKD-EPI)AfAm 104.15 01/09/20 06:00 Est GFR (CKD-EPI)NonAf 89.86 01/09/20 06:00 POC Glucometer 113 UNITS (80-120) 01/09/20 07:26 Random Glucose 104 mg/dL (74-106) 01/09/20 06:00 Calcium 8.8 mg/dL (8.5-10.1) 01/09/20 06:00 Phosphorus 4.0 mg/dL (2.5-4.9) 01/09/20 06:00 Magnesium 2.3 mg/dL (1.8-2.4) 01/09/20 06:00 Total Bilirubin 0.5 mg/dL (0.2-1) 01/09/20 06:00 AST 98 U/L (15-37) H 01/09/20 06:00 ALT 136 U/L (13-61) H 01/09/20 06:00 Alkaline Phosphatase 53 U/L (45-117) 01/09/20 06:00 Total Protein 7.1 g/dl (6.4-8.2) 01/09/20 06:00 Albumin 3.2 g/dl (3.4-5.0) L 01/09/20 06:00 Triglycerides 168 mg/dL (0-150) H 01/08/20 16:00 Cholesterol 213 mg/dL (50-200) H 01/08/20 16:00 Total LDL Cholesterol 146 mg/dL (5-100) H 01/08/20 16:00 HDL Cholesterol 26 mg/dL (40-60) L 01/08/20 16:00 Blood Type O POSITIVE 01/08/20 07:18 Antibody Screen Negative 01/08/20 07:18 Crossmatch See Detail 01/08/20 07:18 Active Medications Acetaminophen (Tylenol -) 650 mg PO Q6H PRN PRN Reason: pain 1-3 or fever Last Admin: 01/08/20 18:49 Dose: 650 mg Documented by: Amlodipine Besylate (Norvasc -) 10 mg PO DAILY [facility] Atenolol (Tenormin -) 50 mg PO DAILY [facility] Chlorhexidine Gluconate (Hibiclens For Decolonization -) 1 applic TP HS [facility] Last Admin: 01/08/20 22:05 Dose: 1 applic Documented by: Fentanyl (Sublimaze Injection -) 50 mcg IVPUSH [id number] PRN PRN Reason: PAIN-PACU ORDER X 4 DOSES ONLY Heparin Sodium (Porcine) (Heparin -) 5,000 unit SQ TID [facility] Last Admin: 01/09/20 06:10 Dose: 5,000 unit Documented by: Sodium Chloride (Normal Saline -) 1,000 mls @ 75 mls/hr IV ASDIR [facility] Last Admin: 01/08/20 14:14 Dose: 75 mls/hr Documented by: Insulin Aspart (Novolog Vial Sliding Scale -) 1 vial SQ TIDAC [facility]; Protocol Last Admin: 01/08/20 17:22 Dose: 4 units Documented by: Insulin Detemir (Levemir Vial) 10 units SQ [facility] Last Admin: 01/08/20 21:31 Dose: 10 units Documented by: Ipratropium [place] (Atrovent 0.02% Nebulizer -) 1 amp NEB Q6H [facility] Stop: 01/15/20 13:18 Last Admin: 01/08/20 17:51 Dose: Not Given Documented by: Ketorolac Tromethamine (Toradol Injection -) 30 mg IVPUSH Q6H [facility] Stop: 01/13/20 12:59 Last Admin: 01/09/20 06:10 Dose: 30 mg Documented by: Metformin HCl (Glucophage -) 1,000 mg PO BIDI [facility] Mupirocin (Bactroban Ointment (For Decolonization) -) 1 applic NS BID [facility] Stop: 01/13/20 13:14 Last Admin: 01/08/20 21:32 Dose: 1 applic Documented by: Ondansetron HCl (Zofran Injection) 4 mg IVPUSH Q6H PRN PRN Reason: NAUSEA AND/OR VOMITING Oxycodone HCl (Roxicodone -) 5 mg PO Q4H PRN PRN Reason: PAIN LEVEL 1-5 Last Admin: 01/08/20 18:48 Dose: 5 mg Documented by: Oxycodone HCl (Roxicodone -) 10 mg PO Q4H PRN PRN Reason: PAIN LEVEL 6-10 Pantoprazole Sodium (Protonix -) 20 mg PO DAILY [facility] ASSESSMENT/PLAN: This is a 44 year old male with PMH DM and metastatic colon cancer (s/p hemicolectomy 02/15/2018) with mets to the lung. He is POD#1 for bronchoscopy and resection of RUL nodule. Surgery was w/o complications. No reported anesthesia complications. Pt is hemodynamically stable. Discussed with surgery Neuro -Alert and oriented Cardiac -Normotensive -c/w amlodipine 10qD, atenolol 50qD -Monitor and maintain MAP>65 Pulmonary RUL nodule secondary to metastatic colon cancer -s/p bronchoscopy and resection of nodule -c/w Atrovent -c/w Oxycodone, fentanyl, ketorolac, acetaminophen PRN for pain -Discussed case with surgery regarding post-op management. -CXR reviewed. R chest tube visualized. No pneumothorax. GI Metastatic colon cancer -hemicolectomy in 2018 -Advance diet to clears. Diabetic diet tomorrow. -Zofran PRN for nausea MSK -OOB to chair tonight -No strenuous physical activity for ~2 weeks. -trial of voiding tonight and d/c newberry Endo T2DM -hold metformin 1000 BID until baseline labs. -levemir 10U qHS -ISS + BGM ID Post-op -Post-op cefazolin for 24 hours LTD -R chest tube 01/07 -Newberry 01/07 FEN -NS @ 75 -monitor and maintain electrolytes -Clear diet tonight, advance to diabetic diet tomorrow morning. Ppx -DVT: SQH -GI :PPI Dispo: Continue to monitor in the ICU. Thank you for this consultative opportunity. Visit type - Emergency Visit Emergency Visit: No - New Patient This patient is new to me today: No - Critical Care Critical Care patient: No ATTENDING PHYSICIAN STATEMENT I saw and evaluated the patient. I reviewed the resident's note and discussed the case with the resident. I agree with the resident's findings and plan as documented. SUBJECTIVE: OBJECTIVE: ASSESSMENT AND PLAN:
[2020-01-09] MEDS: IPRATROPIUM BR 0.02% 0.5 MG/2.5 ML VIAL.NEB. NEB SCH (07:34)
--- NOTE | 2020-01-09 08:35 | PN ---
HC Provider Note Provider Note: Anesthesia Post Op Note Pt s/p GA for VATS/lobectomy Pt awake alert in chair denies n/v, no puritis ambulating well good pain control VSS no apparent anesthesia complications Estrellita Marquez.
[2020-01-09] MEDS: oxyCODONE HCL 5 MG TABLET PO PRN (09:54)
[2020-01-09] MEDS: ACETAMINOPHEN 325 MG TABLET (FP) PO PRN (09:55)
[2020-01-09] MEDS ORDERED: amLODIPine BESYLATE 10 MG TABLET (FP) PO SCH (10:00)
[2020-01-09] MEDS ORDERED: ATENOLOL 50 MG TABLET (FP) PO SCH (10:00)
[2020-01-09] MEDS ORDERED: PANTOPRAZOLE 20 MG TABLET PO SCH (10:00)
--- NOTE | 2020-01-09 11:04 | PN ---
Progress Note (short form) - Note Progress Note: Noted on exam pt front incisor tooth chipped after eating a tuna sandwich yesterday. Pt states prior to surgery he had the same tooth that was partially chipped already and has a scheduled up coming dental appointment for this reason. Denies bleeding, pain, swelling, drainage, fevers
[2020-01-09] MEDS: MUPIROCIN 2% TOPICAL OINTMENT FOR DECOLONIZATION NS SCH (11:13)
--- NOTE | 2020-01-09 11:41 | PN ---
Progress Note (short form) - Note Progress Note: Surgery POD #1 right pulmonary wedge resection. Patient seen and examined on AM rounds with no overnight issues and no complaints. He is tolerating his diet and has been and OOB to chair. His pain is controlled and he denies any SOB, N/V, fever or chills. Vital Signs Temp 99.0 F 01/09/20 07:00 Pulse 64 01/09/20 10:26 Resp 20 01/09/20 10:26 BP 163/111 H 01/09/20 10:26 Pulse Ox 94 L 01/09/20 07:00 Intake & Output 01/08/20 01/08/20 01/09/20 11:59 23:59 11:59 Intake Total 5846 862 1496 Output Total 220 1205 755 Balance 1280 -405 595 Weight 265 lb Intake: IV 1500 450 900 Normal Saline - 1,000 ml 450 900 @ 75 mls/hr IV ASDIR MELVI Rx#:[id number] IVPB 50 50 Oral 300 400 Output: Chest Tube Drainage 5 5 Right Lateral Chest 5 5 Urine 200 1200 750 [place] 1200 650 Void 100 Estimated Blood Loss 20 Other: Voiding Method Indwelling Catheter Urinal Bowel Movement No Height 6 ft Body Mass Index (BMI) 35.9 CBC, BMP 01/09/20 06:00 01/09/20 06:00 Chest Xray this morning-right chest tube noted, right port catheter visualized, no Pneumothorax seen. PE: A&Ox3, NAD Unlabored resp on RA, Right chest tube in good position with no evidence of air leak, with @20cc output overnight. Chest tube removed on AM rounds and pressure dressing applied-patient tolerated the procedure and vitals remained stable. ABD: soft, NT, ND Post chest tube d/c chest X-ray: no sign of pneumothorax, better inspiration with no sign of infiltrate or failure Problem List - Problems (1) Colon cancer metastasized to lung Assessment/Plan: POD #1 robotic assisted lap pulm wedge resection doing well. 1) Continue pulmonary toilet 2) Encourage ambulation and OOB 3) Cleared from surgical perspective for d/c home today. 4) Follow up with Dr Patino in 2 weeks. Evaluation, images and plan discussed with Dr Patino Code(s): C18.9 - MALIGNANT NEOPLASM OF COLON, UNSPECIFIED; C78.00 - SECONDARY MALIGNANT NEOPLASM OF UNSPECIFIED LUNG
[2020-01-09 11:52] VITALS: PULSE 60; TEMP 97.8
--- NOTE | 2020-01-09 12:03 | DS ---
Physical Exam: SUBJECTIVE: Patient seen and examined. Patient seen and examined. POD#1 for RUL robotic assisted lap pulm wedge resection. Pt denies chest pain, shortness of breath, abdominal pain. Pt has good appetite and reported 1 BM in the morning. Discussed with surgery for further recommendations. Surgical PA stated that pt can be discharged home and f/u with surgeon. OBJECTIVE: Vital Signs Period Temp Pulse Resp BP Sys/Santizo Pulse Ox Last 24 Hr 97.6 F-99.0 F 60-96 17-48 108-165/79-116 92-100 PHYSICAL EXAM GENERAL: The patient is awake, alert, and fully oriented, in no acute distress. HEENT: NCAT, EOMI. NECK: Trachea midline, full range of motion. LUNGS: Breath sounds equal, clear to auscultation bilaterally, no wheezes, no accessory muscle use. HEART: Regular rate and rhythm, S1, S2 without murmur ABDOMEN: Obese, nontender, nondistended, normoactive bowel sounds EXTREMITIES: warm, well-perfused, no edema. SKIN: Warm, dry, surgical incision clean, dry and intact. HOSPITAL COURSE: This is a 44 year old male with PMH DM and metastatic colon cancer (s/p hemicolectomy 02/15/2018) with mets to the lung. Pt had undergone chemotherapy (last chemo was 12/03/2019) for a right upper lung nodule. However, the lung no dule was refractory to systemic treatment and decision was made to resect it. Pt RUL robotic assisted lap pulm wedge resection without complications. He stated that he has no physical complaints. Denies any fevers, chills, nausea, vomiting, shortness of breath or chest pain. Right chest tube was in good position with no evidence of air leak, with 20 mL output overnight. Chest tube removed during r ounds and pressure dressing applied. CXR reviewed. No pneumothorax or infiltrates. Pt is hemodynamically stable and cleared to be discharged as per Surgery. Pt is to continue pulmonary toilet, early ambulation and f/u Dr. Patino in 2 weeks. Date of Admission:01/08/20 Date of Discharge: 01/09/20 Neuro -Alert and oriented Cardiac -HTN -c/w amlodipine 10qD, atenolol 50qD -Monitor and maintain MAP>65 Pulmonary RUL nodule secondary to metastatic colon cancer -c/w pulmonary toilet -CXR reviewed. No pneumothorax/infiltrates. - GI Metastatic colon cancer -hemicolectomy in 2018 MSK -OOB to chair tonight -No strenuous physical activity for ~2 weeks. Endo T2DM -c/w metformin 1000 BID and levemir qHS. -ISS + BGM Dispo: Discharge home. The following are discharge instructions as per Surgery: Post Operative Instructions Physical activity Resume your normal everyday activity as tolerated no heavy lifting or exercise until seen by your surgeon. You may walk unlimited amounts of and climb stairs. You may resume driving the car when you feel safe and comfortable behind the wheel and no longer taking narcotics Wound care If you have a bandage, leave it on, and keep dry for 48 hours. After that time discard the outer bandage. You may shower 2 days after surgery but do not submerge the incisions. Do not apply lotion or ointments to incisions. Diet There are no dietary restrictions. Eat healthy, high-fiber foods. Drink 6 to 8 glasses of liquid each day. This will assist in keeping your bowels are regular. Pain management You may take Tylenol or acetaminophen or Ibuprofen (for example, Motrin, Advil etc.) Any pain prescription medication ordered should be taken as prescribed for moderate to severe pain. Call Dr. Patino for any of the following: Severe pain not relieved by medication Fever of 101 or higher Excessive bleeding or drainage on dressing Inability to urinate If you experience any chest pain or shortness of breath please seek emergency treatment Call the office for a post operative appointment to be scheduled 2 week after your surgery date. Minutes to complete discharge: 36 Discharge Summary Problems reviewed: Yes Reason For Visit: LUNG NODULE Condition: Good - Instructions Diet, Activity, Other Instructions: Discharge Instructions Dear KAUSHIK GARLAND, Post Operative Instructions Physical activity Resume your normal everyday activity as tolerated no heavy lifting or exercise until seen by your surgeon. You may walk unlimited amounts of and climb stairs. You may resume driving the car when you feel safe and comfortable behind the wheel and no longer taking narcotics Wound care If you have a bandage, leave it on, and keep dry for 48 hours. After that time discard the outer bandage. You may shower 2 days after surgery but do not submerge the incisions. Do not apply lotion or ointments to incisions. Diet There are no dietary restrictions. Eat healthy, high-fiber foods. Drink 6 to 8 glasses of liquid each day. This will assist in keeping your bowels are regular. Pain management You may take Tylenol or acetaminophen or Ibuprofen (for example, Motrin, Advil etc.) Any pain prescription medication ordered should be taken as prescribed for moderate to severe pain. Call Dr. Patino for any of the following: Severe pain not relieved by medication Fever of 101 or higher Excessive bleeding or drainage on dressing Inability to urinate If you experience any chest pain or shortness of breath please seek emergency treatment Call the office for a post operative appointment to be scheduled 2 week after your surgery date. HTN Please continue to take your hypertension medication and follow up with your Primary care doctor. Disposition: HOME - Home Medications Comprehensive Discharge Medication List: Ambulatory Orders Amlodipine Besylate [Norvasc -] 10 mg PO DAILY 12/16/19 Atenolol [Tenormin -] 50 mg PO DAILY 12/16/19 Insulin Glargine,Hum.rec.anlog [Lantus Solostar PEN (NF)] 20 units SQ HS 12/16/19 Metformin HCl [Glucophage] 1,000 mg PO BID 12/16/19 Acetaminophen [Tylenol -] 500 mg PO Q6H PRN #30 tablet 01/09/20 Docusate Sodium [Colace -] 100 mg PO TID PRN #90 capsule 01/09/20 Ibuprofen 600 mg PO Q6H PRN #30 tablet 01/09/20 Oxycodone HCl 5 mg PO Q4H PRN #15 capsule MDD 6 01/09/20 This patient is new to me today: No Emergency Visit: No Critical Care patient: No - Discharge Referral Referred to [facility] No ATTENDING PHYSICIAN STATEMENT I saw and evaluated the patient. I reviewed the resident's note and discussed the case with the resident. I agree with the resident's findings and plan as documented. SUBJECTIVE: OBJECTIVE: ASSESSMENT AND PLAN:
[2020-01-09 12:10] VITALS: BP 140/102
--- NOTE | 2020-01-09 14:00 | PN ---
Teaching Attending Note Name of Resident: Stella Sotelo ATTENDING PHYSICIAN STATEMENT I saw and evaluated the patient. I reviewed the resident's note and discussed the case with the resident. I agree with the resident's findings and plan as documented. SUBJECTIVE: Patient seen and examined in the ICU. Pain well controlled. Reports he was eating a tuna sandwich yesterday and his tooth was "chipped and fell out". No CP or SOB. Intake & Output 01/06/20 01/07/20 01/08/20 01/09/20 23:59 23:59 23:59 23:59 Intake Total 2300 1350 Output Total 1425 755 Balance 875 595 Weight 265 lb 265 lb Last Vital Signs Temp Pulse Resp BP Pulse Ox 97.8 F 60 18 140/102 H 94 L 01/09/20 11:52 01/09/20 11:50 01/09/20 11:50 01/09/20 12:10 01/09/20 07:00 General: AAOx3, not in acute distress. HEENT: NCAT, EOMI. Moist mucus membranes. Conjunctiva clear. Cardio: Regular rate and rhythm. S1, S2 present. No murmurs. Pulmonary: Diminished at the bases. GI: Obese. Non-distended. Not tender to palpation. Bowel sounds present in all 4 quadrants. Extremities: Warm, well-perfused, no edema. Laboratory Results - last 24 hr 01/08/20 01/08/20 01/08/20 16:00 16:00 17:21 WBC 9.3 RBC 4.74 Hgb 14.8 Hct 44.3 MCV 93.6 MCH 31.3 MCHC 33.5 RDW 15.4 Plt Count 224 D MPV 9.5 Sodium 139 Potassium 4.5 Chloride 104 Carbon Dioxide 26 Anion Gap 9 BUN 11.2 Creatinine 1.0 Est GFR (CKD-EPI)AfAm 104.15 Est GFR (CKD-EPI)NonAf 89.86 POC Glucometer 217 Random Glucose 190 H Calcium 9.3 Phosphorus Magnesium Total Bilirubin 0.5 AST 154 H ALT 177 H Alkaline Phosphatase 53 Total Protein 7.5 Albumin 3.5 Triglycerides 168 H Cholesterol 213 H Total LDL Cholesterol 146 H HDL Cholesterol 26 L 01/09/20 01/09/20 01/09/20 06:00 06:00 07:26 WBC 12.4 H RBC 4.79 Hgb 15.0 Hct 44.6 MCV 93.1 MCH 31.3 MCHC 33.6 RDW 15.4 Plt Count 230 MPV 9.5 Sodium 141 Potassium 4.4 Chloride 106 Carbon Dioxide 27 Anion Gap 8 BUN 12.5 Creatinine 1.0 Est GFR (CKD-EPI)AfAm 104.15 Est GFR (CKD-EPI)NonAf 89.86 POC Glucometer 113 Random Glucose 104 Calcium 8.8 Phosphorus 4.0 Magnesium 2.3 Total Bilirubin 0.5 AST 98 H ALT 136 H Alkaline Phosphatase 53 Total Protein 7.1 Albumin 3.2 L Triglycerides Cholesterol Total LDL Cholesterol HDL Cholesterol 01/09/20 11:10 WBC RBC Hgb Hct MCV MCH MCHC RDW Plt Count MPV Sodium Potassium Chloride Carbon Dioxide Anion Gap BUN Creatinine Est GFR (CKD-EPI)AfAm Est GFR (CKD-EPI)NonAf POC Glucometer 130 Random Glucose Calcium Phosphorus Magnesium Total Bilirubin AST ALT Alkaline Phosphatase Total Protein Albumin Triglycerides Cholesterol Total LDL Cholesterol HDL Cholesterol ASSESSMENT/PLAN: POD #1: S/P bronchoscopy with right robot assisted wedge resection. Intercostal blocks in spaces 3 to 10 for post-operative pain was also performed. Metastatic colon cancer (s/p hemicolectomy 02/15/2018) with mets to the lung. S/P chemotherapy (last was 12/03/2019). DM Pain control Incentive Spirometry No smoking DC home Dr Hsu
--- NOTE | 2020-01-09 17:28 | PATH ---
Surgical Pathology Report Patient Name: KAUSHIK GARLAND [facility]. Rec. 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 Specimen(s) Received A: LUNG, UPPER LOBE, RIGHT, DEEP MARGIN, WEDGE (FS) B: LUNG, UPPER LOBE, RIGHT, WEDGE (FS) Clinical History Right upper lobe lung nodule Intraoperative Consult Diagnosis A. Right upper lobe wedge, deep margin, frozen section: Negative for malignancy. B. Right upper lobe wedge for intraoperative gross examination: Surgical margins grossly free from lesion. Inocencio Hawk M.D., 01/08/2020 Final Diagnosis A. LUNG, UPPER LOBE, RIGHT, DEEP MARGIN, WEDGE, EXCISION (FS): BENIGN LUNG PARENCHYMA. NEGATIVE FOR MALIGNANCY. B. 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 TUMOR MEASURES 1.8 X 1.5 X 1.4 CM (GROSS MEASUREMENT). VISCERAL PLEURAL SURFACE IS UNINVOLVED. STAPLED SURGICAL MARGIN IS NEGATIVE. Comment: Prior materials from the colon ([id number]) and lung biopsy ([id number]) are reviewed and show morphologic similarities. Electronically Signed Brenda Linn M.D. Gross Description A. Received fresh labeled "right upper lobe wedge deep margin," is a 1.7 x 0.5 x 0.2 cm eugene red portion of soft tissue. The specimen is submitted in toto for frozen section. The frozen section residue is entirely submitted in one cassette. B. Received fresh labeled "right upper lobe wedge," is an 8.0 x 2.5 x 2.3 cm lung wedge resection with a stapled margin of resection. Sectioning reveals a 1.8 x 1.5 x 1.4 cm eugene, firm, mucinous mass focally abutting the pleural surface. The mass does not invade through the pleura. The mass is 0.6 cm from the closest staple line. The remaining lung parenchyma is red-brown and unremarkable. An intraoperative gross examination is performed. Switchboard Operator Assistant sections are submitted in 8 cassettes as follows: 4-6-smupfhah and sequentially submitted mass (each with inked pleural surface); 7-uninvolved lung parenchyma; 8-staple line closest to mass. 01/08/2020 saudi01/08/2020
[2020-01-10] MEDS ORDERED: amLODIPine BESYLATE 10 MG TABLET (FP) PO SCH (10:00)
--- NOTE | 2020-02-18 20:01 | PN.HO ---
Progress Note (short form) - Note Progress Note: Called patient -- discussed results. Asked him o resume chemotherapy. He is adamantly against it. Discussed in detail
== END 2020-01-09 13:27 | disposition home or self-care (01) | DRG 167 ==
LOC: J2C 04:47 → EDSTATUS 10:54 → JICU 13:01
PROVIDERS: ADMIT Surgery; ATTEND Surgery
PROC: 0BJ08ZZ Inspection of Tracheobronchial Tree, Via Natural or Artificial Opening Endoscopic (ICD-10-PCS; 2020-01-08)
PROC: 0WP9X0Z Removal of Drainage Device from Right Pleural Cavity, External Approach (ICD-10-PCS; 2020-01-08)
PROC: 0BBC8ZX Excision of Right Upper Lung Lobe, Via Natural or Artificial Opening Endoscopic, Diagnostic (ICD-10-PCS; principal; 2020-01-08 09:00)
PROC: 0W9940Z Drainage of Right Pleural Cavity with Drainage Device, Percutaneous Endoscopic Approach (ICD-10-PCS; 2020-01-08 09:00)
DX: C78.01 Secondary malignant neoplasm of right lung (principal); C18.9 Malignant neoplasm of colon, unspecified; I10 Essential (primary) hypertension; E11.9 Type 2 diabetes mellitus without complications
CPT/HCPCS: 36415; 71045-TC-FY; 80053; 80061; 82962; 83721; 83735; 84100; 85027; 86850; 86900; 86901; 86922; 88305-TC; 88307-TC; 88329; 88331-TC; J0131; J1644

== ENCOUNTER → 2020-04-06 | Day surgery (SDC) | payer BC ==
[~2020-04-06] MED LIST changes: -ATROPINE SO4 0.4 MG/1 ML VIAL IVPUSH ONE; -BEVACIZUMAB AWWB IVPB ONE; -DEXAMETHASONE SODIUM PHOSPHATE 10 MG in SODIUM CHLORIDE 50 ML IVPB ONE; -FOSAPREPITANT DIMEGLUMINE 150 MG in SODIUM CHLORIDE 150 ML IVPB ONE; -IRINOTECAN HCL 370 MG in DEXTROSE 5%-WATER - 500 ML IVPB ONE; +LIDOCAINE 1%/EPI 1:100000 (20 ML MULTI DOSE VIAL) ONE; -PALONOSETRON HCL 0.25 MG/5 ML VIAL IVPUSH ONE; -SODIUM CHLORIDE IVPB ONE
[2020-04-06 11:01] LABS: BASO % 1.1 % (0-2.0); EOS % 2.9 % (0-4.5); HEMATOCRIT 45.2 % (35.4-49); HEMOGLOBIN 15.1 GM/dL (11.7-16.9); LYMPH % 33.9 % (8-40); MCH 30.7 pg (25.7-33.7); MCHC 33.4 g/dl (32.0-35.9); MEAN CELL VOLUME 91.8 fl (80-96); NEUT % 46.1 % (42.8-82.8); PLATELET COUNT 222 K/MM3 (134-434); RBC 4.92 M/mm3 (4.00-5.60); WHITE BLOOD COUNT 8.1 K/mm3 (4.0-10.0)
[2020-04-06 11:07] LABS: INR 1.06 (0.83-1.09); PROTHROMBIN TIME (PATIENT) 12.8 SEC (9.7-13.0)
== END | disposition home or self-care (01) ==
LOC: JRADIR 10:41
PROVIDERS: ATTEND Internal Medicine Hematology & Oncology
PROC: 0JPT0WZ Removal of Totally Implantable Vascular Access Device from Trunk Subcutaneous Tissue and Fascia, Open Approach (ICD-10-PCS; principal; 2020-04-06)
PROC: 02PY03Z Removal of Infusion Device from Great Vessel, Open Approach (ICD-10-PCS; 2020-04-06)
DX: Z45.2 Encounter for adjustment and management of vascular access device (principal)
CPT/HCPCS: 36415; 36590; 77001-TC-FY; 85025; 85610

== ENCOUNTER 2022-02-02 16:53 | Emergency (ER) | payer OTHER ==
[2022-02-02 16:58] VITALS: BMI 31.8
[2022-02-02] MEDS ORDERED: SODIUM CHLORIDE 1,000 ML IV STA (17:51)
[2022-02-02] MEDS ORDERED: ACETAMINOPHEN 1000 MG/100 ML BAG IVPB ONE (17:51)
[2022-02-02] MEDS ORDERED: FAMOTIDINE 20 MG/50 ML IVPB 20 MG/50 ML MG IVPB ONE (17:51)
[2022-02-02] MEDS ORDERED: ACETAMINOPHEN INJECTION 100 ML IVPB ONE (18:09)
[2022-02-02] MEDS ORDERED: FAMOTIDINE 10 MG/ML VIAL IVPB ONE (18:10)
[2022-02-02 19:13] LABS: BASO % 1.2 % (0-2.0); HEMOGLOBIN 15.1 GM/dL (11.7-16.9); LYMPH % 43.2 % (8-40); MCHC 33.7 g/dl (32.0-35.9); MEAN CELL VOLUME 91.9 fl (80-96); MEAN PLT VOLUME 9.2 fl (7.5-11.1); MONO % 9.1 % (3.8-10.2); NEUT % 44.5 % (42.8-82.8); PLATELET COUNT 250 10^3/uL (134-434); RBC 4.89 M/mm3 (4.00-5.60); RDW 14.4 % (11.9-15.9); WHITE BLOOD COUNT 6.9 K/mm3 (4.0-10.0)
[2022-02-02 19:46] LABS: PH,URINE 6.5 (5.0-8.0); URINE APPEARANCE CLEAR; URINE BILIRUBIN NEGATIVE (NEGATIVE); URINE COLOR YELLOW; URINE GLUCOSE (UA) NEGATIVE (NEGATIVE); URINE KETONE TRACE (NEGATIVE); URINE LEUK ESTERASE NEGATIVE (NEGATIVE); URINE NITRITE NEGATIVE (NEGATIVE); URINE PROTEIN TRACE (NEGATIVE)
[2022-02-02 19:54] LABS: CALCIUM 9.2 mg/dL (8.5-10.1)
[2022-02-02 19:55] LABS: ALBUMIN 3.8 g/dl (3.4-5.0); BLOOD UREA NITROGEN 10.9 mg/dL (7-18)
[2022-02-02 19:57] LABS: CREATININE 1.2 mg/dL (0.55-1.3)
[2022-02-02 19:59] LABS: BILIRUBIN,TOTAL 0.6 mg/dL (0.2-1); TOT PROT 7.6 g/dl (6.4-8.2)
[2022-02-02 22:30] VITALS: BP 122/78; PULSE 76; RESP 19; TEMP 98.6
== END 2022-02-02 22:30 | disposition home or self-care (01) ==
LOC: JER 16:53
PROC: 3E0333Z Introduction of Anti-inflammatory into Peripheral Vein, Percutaneous Approach (ICD-10-PCS; principal; 2022-02-02)
PROC: 3E033GC Introduction of Other Therapeutic Substance into Peripheral Vein, Percutaneous Approach (ICD-10-PCS; 2022-02-02)
PROC: 3E0337Z Introduction of Electrolytic and Water Balance Substance into Peripheral Vein, Percutaneous Approach (ICD-10-PCS; 2022-02-02)
DX: R16.0 Hepatomegaly, not elsewhere classified (principal); K42.9 Umbilical hernia without obstruction or gangrene
CPT/HCPCS: 36415; 74177-TC; 80053; 81003; 83690; 85025; 87086; 99285-25; Q9967

== ENCOUNTER 2022-03-14 04:25 | Day surgery (SDC) | payer OTHER ==
[2022-03-10 16:49] VITALS: BMI 32.5
[2022-03-14] MEDS ORDERED: BUPIVACAINE HCL/PF 0.5% (5MG/ML) 10 ML VIAL ONE (11:11)
[2022-03-14] MEDS ORDERED: ceFAZolin 2 GRAM PREMIX BAG IVPB ONE ×2 (11:18→11:42)
[2022-03-14] MEDS ORDERED: BUPIVACAINE HCL/PF 0.5% (5MG/ML) 10 ML VIAL IJ ONE ×3 (11:18→11:32)
[2022-03-14] MEDS ORDERED: LIDOCAINE HCL/PF 2% SDV 5ML VIAL ONE (11:21)
[2022-03-14] MEDS ORDERED: MIDAZOLAM HCL 2 MG/2 ML SINGLE DOSE VIAL ONE (11:22)
[2022-03-14] MEDS ORDERED: PROPOFOL 20 ML ONE (11:23)
[2022-03-14] MEDS ORDERED: ACETAMINOPHEN INJECTION 100 ML IVPB ONE (12:24)
[2022-03-14] MEDS ORDERED: ONDANSETRON 4 MG/2 ML VIAL IVPUSH PRN (13:02)
[2022-03-14] MEDS ORDERED: LACTATED RINGERS SOLUTION 1,000 ML IV SCH (13:15)
[2022-03-14] MEDS ORDERED: oxyCODONE HCL 5 MG TABLET PO PRN (13:33)
[2022-03-14 16:11] VITALS: RESP 18
[2022-03-14 16:15] VITALS: BP 140/83; PULSE 58; TEMP 97
== END 2022-03-14 16:00 | disposition home or self-care (01) ==
LOC: JASU-SURG 04:25
PROVIDERS: ATTEND Surgery
PROC: 0WQF0ZZ Repair Abdominal Wall, Open Approach (ICD-10-PCS; principal; 2022-03-14 11:00)
DX: K43.2 Incisional hernia without obstruction or gangrene (principal)
CPT/HCPCS: 82962; 88302-TC; 94760

== ENCOUNTER 2022-11-14 13:33 | Emergency (ER) | payer OTHER ==
[2022-11-14 13:51] VITALS: BP 135/94; PULSE 71; RESP 18; TEMP 98.5; BMI 31.8
[2022-11-14] MEDS ORDERED: ACETAMINOPHEN 1000 MG/100 ML BAG IVPB ONE (15:02)
[2022-11-14] MEDS ORDERED: ACETAMINOPHEN INJECTION 100 ML IVPB ONE (15:19)
[2022-11-14 16:19] LABS: BASO % 1.1 % (0-2.0); EOS % 6.6 % (0-4.5); HEMATOCRIT 47.5 % (35.4-49); HEMOGLOBIN 16.4 GM/dL (11.7-16.9); LYMPH % 34.9 % (8-40); MCHC 34.5 g/dl (32.0-35.9); MEAN CELL VOLUME 89.9 fl (80-96); MEAN PLT VOLUME 8.3 fl (7.5-11.1); MONO % 15.6 % (3.8-10.2); NEUT % 41.8 % (42.8-82.8); PLATELET COUNT 249 10^3/uL (134-434); RBC 5.28 M/mm3 (4.00-5.60); RDW 13.8 % (11.9-15.9); WHITE BLOOD COUNT 4.6 K/mm3 (4.0-10.0)
[2022-11-14 16:33] LABS: POTASSIUM 4.2 mmol/L (3.5-5.1)
[2022-11-14 16:35] LABS: CALCIUM 9.1 mg/dL (8.5-10.1)
[2022-11-14 16:36] LABS: ALBUMIN 3.6 g/dl (3.4-5.0); BLOOD UREA NITROGEN 14.8 mg/dL (7-18)
[2022-11-14 16:40] LABS: BILIRUBIN,TOTAL 0.4 mg/dL (0.2-1); TOT PROT 7.6 g/dl (6.4-8.2)
[2022-11-14] MEDS ORDERED: LACTATED RINGERS SOLUTION 1000 ML INFUS.BAG IV ONE (16:51)
== END 2022-11-14 18:16 | disposition left against medical advice (07) ==
LOC: JER 13:33
PROC: 3E033NZ Introduction of Analgesics, Hypnotics, Sedatives into Peripheral Vein, Percutaneous Approach (ICD-10-PCS; principal; 2022-11-14)
DX: R10.11 Right upper quadrant pain (principal); K85.90 Acute pancreatitis without necrosis or infection, unspecified
CPT/HCPCS: 36415; 74177-TC; 76705-TC; 80053; 83690; 85025; 93005; 93010; 99285-25; Q9967

== ENCOUNTER 2023-08-21 07:05 | Emergency (ER) | payer OTHER ==
[2023-08-21 07:18] VITALS: RESP 18; BMI 31.9
[2023-08-21] MEDS ORDERED: ONDANSETRON 4 MG/2 ML VIAL IVPUSH ONE (07:31)
[2023-08-21] MEDS ORDERED: ONDANSETRON 4 MG/2 ML VIAL ONE (07:33)
[2023-08-21] MEDS ORDERED: morphine SULFATE 4 MG/ML VIAL ONE (07:33)
[2023-08-21] MEDS ORDERED: morphine CARPU-JECT 4 MG/1 ML DISP.SYRIN IVPUSH ONE (07:34)
[2023-08-21] MEDS: ONDANSETRON 4 MG/2 ML VIAL IVPUSH ONE (07:40)
[2023-08-21] MEDS: LACTATED RINGERS SOLUTION 1000 ML INFUS.BAG IV ONE ×2 (07:40→10:30)
[2023-08-21] MEDS: morphine CARPU-JECT 2 MG/1 ML DISP.SYRIN IVPUSH ONE (07:40)
[2023-08-21 07:56] LABS: BASO % 0.7 % (0-2.0); EOS % 1.6 % (0-4.5); HEMATOCRIT 48.4 % (35.4-49); HEMOGLOBIN 16.8 GM/dL (11.7-16.9); LYMPH % 28.2 % (8-40); MCH 31.6 pg (25.7-33.7); MCHC 34.7 g/dl (32.0-35.9); MEAN CELL VOLUME 91.1 fl (80-96); MEAN PLT VOLUME 9.3 fl (7.5-11.1); MONO % 9.3 % (3.8-10.2); NEUT % 60.2 % (42.8-82.8); PLATELET COUNT 255 10^3/uL (134-434); RBC 5.31 M/mm3 (4.00-5.60); RDW 14.1 % (11.9-15.9); WHITE BLOOD COUNT 8.6 K/mm3 (4.0-10.0)
[2023-08-21] MEDS ORDERED: ACETAMINOPHEN INJECTION 100 ML IVPB ONE (08:00)
[2023-08-21] MEDS ORDERED: FAMOTIDINE 20 MG/50 ML IVPB 20 MG/50 ML MG IVPB ONE (08:00)
[2023-08-21 08:12] LABS: POTASSIUM 4.4 mmol/L (3.5-5.1)
[2023-08-21 08:15] LABS: CALCIUM 9.9 mg/dL (8.5-10.1); PROTHROMBIN TIME (PATIENT) 11.6 SEC (9.7-13.0)
[2023-08-21 08:16] LABS: BLOOD UREA NITROGEN 13.8 mg/dL (7-18)
[2023-08-21] MEDS: ACETAMINOPHEN 1000 MG/100 ML BAG IVPB ONE (08:17)
[2023-08-21 08:18] LABS: CREATININE 1.4 mg/dL (0.55-1.3)
[2023-08-21 08:19] LABS: TOT PROT 8.5 g/dl (6.4-8.2)
[2023-08-21 08:20] LABS: BILIRUBIN,TOTAL 0.9 mg/dL (0.2-1)
[2023-08-21] MEDS: FAMOTIDINE 20 MG/50 ML IVPB 20 MG/50 ML MG IVPB ONE (08:25)
[2023-08-21 08:57] LABS: PH,URINE 8.5 (5.0-8.0); URINE APPEARANCE CLEAR; URINE BILIRUBIN NEGATIVE (NEGATIVE); URINE COLOR YELLOW; URINE GLUCOSE (UA) NEGATIVE (NEGATIVE); URINE KETONE NEGATIVE (NEGATIVE); URINE LEUK ESTERASE NEGATIVE (NEGATIVE); URINE NITRITE NEGATIVE (NEGATIVE); URINE PROTEIN NEGATIVE (NEGATIVE); URINE UROBILINOGEN 0.2 mg/dL (0.2-1.0)
[2023-08-21] MEDS ORDERED: MAG HYDROX/AL HYDROX/SIMETH 30 ML UNIT-DOSE CUP ONE (10:08)
[2023-08-21] MEDS: MAG HYDROX/AL HYDROX/SIMETH 30 ML UNIT-DOSE CUP PO ONE (10:30)
[2023-08-21] MEDS ORDERED: HALOPERIDOL LACTATE 5 MG/ML ONE (12:43)
[2023-08-21] MEDS: HALOPERIDOL LACTATE 5 MG/ML IVPUSH ONE (13:02)
[2023-08-21 13:28] VITALS: BP 172/112; PULSE 53; TEMP 98
[2023-08-21] MEDS ORDERED: amLODIPine BESYLATE 5 MG TABLET (FP) ONE (13:41)
[2023-08-21] MEDS: amLODIPine BESYLATE 5 MG TABLET (FP) PO ONE (13:45)
== END 2023-08-21 14:04 | disposition home or self-care (01) ==
LOC: JER 07:05
PROC: 3E033GC Introduction of Other Therapeutic Substance into Peripheral Vein, Percutaneous Approach (ICD-10-PCS; principal; 2023-08-21)
PROC: 3E033NZ Introduction of Analgesics, Hypnotics, Sedatives into Peripheral Vein, Percutaneous Approach (ICD-10-PCS; 2023-08-21)
PROC: 3E033GC Introduction of Other Therapeutic Substance into Peripheral Vein, Percutaneous Approach (ICD-10-PCS; 2023-08-21)
PROC: 3E033GC Introduction of Other Therapeutic Substance into Peripheral Vein, Percutaneous Approach (ICD-10-PCS; 2023-08-21)
PROC: 3E033GC Introduction of Other Therapeutic Substance into Peripheral Vein, Percutaneous Approach (ICD-10-PCS; 2023-08-21)
DX: R10.84 Generalized abdominal pain (principal); R11.2 Nausea with vomiting, unspecified; R19.7 Diarrhea, unspecified; R07.9 Chest pain, unspecified; R61 Generalized hyperhidrosis; Z20.822 Contact with and (suspected) exposure to COVID-19
CPT/HCPCS: 0241U-QW; 36415; 71045-TC-FY; 74177-TC; 80053; 81003; 83605; 83690; 83735; 84484; 85025; 85610; 85730; 87086; 93005; 93010; 96365; 96375; 99285-25; J0131; Q9967